=== PATIENT | female | born 1965 | race Caucasian/White ===

== ENCOUNTER 2016-08-24 19:37 | Inpatient (IN) | payer MEDICARE ==
[2016-08-24] MEDS ORDERED: SODIUM CHLORIDE 0.9% 1,000 ML IV ONE (20:09)
[2016-08-24] MEDS ORDERED: KETOROLAC 30 MG/ML 1 ML VIAL IVP STA (20:09)
[2016-08-24] MEDS ORDERED: diphenhydrAMINE 50 MG/ML 1 ML VIAL IVP STA (20:10)
[2016-08-24] MEDS ORDERED: METOCLOPRAMIDE 5 MG/ML 2 ML VIAL IVP STA (20:10)
--- NOTE | 2016-08-24 20:27 | ED ---
Headache HPI - General Chief Complaint: Headache Stated Complaint: Migraine/Vomiting Time Seen by Provider: 08/24/16 19:54 Source: RN notes reviewed Mode of arrival: wheelchair Limitations: no limitations - History of Present Illness Initial Comments: Patient is a 50-year-old female presents emergency room for evaluation of migraine headache. Patient states she has a history of chronic migraines. Patient also states she has a history of chronic neck pain, back pain and fibromyalgia. Patient states she ran out of her pain medication 5 days ago. Patient states she began having increasing headache the past 4 days. Patient states she's having a 10 out of 10 constant throbbing migraine. Patient states this is similar to her migraines but the pain is much worse. Patient states she 's been nauseous and has been vomiting. Patient denies any fevers or chills. Patient denies abdominal pain or chest pain. Patient states having increasing neck pain and low back pain. Patient states she just received an MRI today. Patient denies any new injuries or falls. Patient states she is feeling dizzy from the migraine headache. Patient states she's having ear ringing. Patient denies ear pain, throat pain, changes in vision. Patient states she has a history of viral meningitis few years ago and this feels similar. - Related Data Home Medications Medication Instructions Recorded Confirmed Amitriptyline HCl [Elavil] 75 mg PO HS 08/24/16 08/24/16 Atenolol [Tenormin] 25 mg PO BID 08/24/16 08/24/16 Divalproex [Depakote] 750 mg PO DAILY 08/24/16 08/24/16 Estradiol [Estrace] 2.5 mg PO DAILY 08/24/16 08/24/16 Omeprazole 40 mg PO DAILY 08/24/16 08/24/16 QUEtiapine [SEROquel] 100 mg PO DAILY 08/24/16 08/24/16 oxyCODONE HCL 30 mg PO QID PRN 08/24/16 08/24/16 traZODone HCL 50 mg PO HS 08/24/16 08/24/16 Allergies Allergy/AdvReac Type Severity Reaction Status Date / Time Sulfa (Sulfonamide Allergy Rash/Hives Verified 08/24/16 20:12 Antibiotics) Review of Systems ROS Statement: Those systems with pertinent positive or pertinent negative responses have been documented in the HPI. ROS Other: All systems not noted in ROS Statement are negative. Past Medical History Past Medical History: No Reported History, Fibromyalgia Additional Past Medical History / Comment(s): migraines, chronic back pain History of Any Multi-Drug Resistant Organisms: None Reported Past Surgical History: Cholecystectomy Additional Past Surgical History / Comment(s): neck surgery, cyst removal bilateral breast. Past Psychological History: Anxiety, Depression Smoking Status: Never smoker Past Alcohol Use History: None Reported Past Drug Use History: None Reported - Past Family History Mother Family Medical History: COPD Father Additional Family Medical History / Comment(s): smoker; etoh; from alcoholism General Exam - General Exam Comments Initial Comments: Laying in exam room, no acute distress. Limitations: no limitations General appearance: alert, in no apparent distress Head exam: Present: atraumatic, normocephalic, normal inspection Eye exam: Present: normal appearance, PERRL, EOMI Pupils: Present: normal accommodation ENT exam: Present: normal exam Neck exam: Present: normal inspection, tenderness (Palpating over the cervical vertebrae). Absent: full ROM (Limited range of motion secondary to pain) Respiratory exam: Present: normal lung sounds bilaterally. Absent: respiratory distress Cardiovascular Exam: Present: regular rate, normal rhythm, normal heart sounds Extremities exam: Present: normal inspection Back exam: Present: normal inspection Neurological exam: Present: alert, oriented X3, CN II-XII intact, normal gait Psychiatric exam: Present: normal affect, normal mood Skin exam: Present: warm, dry, intact, normal color. Absent: rash Course Vital Signs 08/24/16 08/24/16 08/24/16 19:42 22:02 23:00 Temperature 99.8 F H 100.5 F H 101.6 F H Pulse Rate 100 84 86 Respiratory 16 20 18 Rate Blood Pressure 137/89 168/90 156/75 O2 Sat by Pulse 98 98 99 Oximetry 08/25/16 00:15 Temperature 101.4 F H Pulse Rate 74 Respiratory 18 Rate Blood Pressure 178/86 O2 Sat by Pulse 98 Oximetry Medical Decision Making - Medical Decision Making Patient is a 50-year-old female presents to the emergency room for evaluation of migraine headache, nausea and vomiting. Patient's nausea is unable to be controlled. Patient still complaining of headache and neck pain. Patient noted to have a fever. WBC elevated. Patient refused spinal tap. Case discussed with Dr. Zazueta. Patient will be admitted for further evaluation. Plan discussed with patient and her family. - Lab Data Result diagrams: 08/24/16 20:53 08/24/16 20:53 Lab Results 08/24/16 08/24/16 08/24/16 Range/Units 00:50 20:53 20:53 WBC 14.4 H (3.8-10.6) k/uL RBC 5.49 H (3.80-5.40) m/uL Hgb 15.7 (11.4-16.0) gm/dL Hct 46.3 H (34.0-46.0) % MCV 84.2 (80.0-100.0) fL MCH 28.5 (25.0-35.0) pg MCHC 33.9 (31.0-37.0) g/dL RDW 12.3 (11.5-15.5) % Plt Count 336 (150-450) k/uL Neutrophils % 81 % Lymphocytes % 13 % Monocytes % 5 % Eosinophils % 0 % Basophils % 0 % Neutrophils # 11.7 H (1.3-7.7) k/uL Lymphocytes # 1.8 (1.0-4.8) k/uL Monocytes # 0.7 (0-1.0) k/uL Eosinophils # 0.0 (0-0.7) k/uL Basophils # 0.1 (0-0.2) k/uL Sodium (137-145) mmol/L Potassium (3.5-5.1) mmol/L Chloride (98-107) mmol/L Carbon Dioxide (22-30) mmol/L Anion Gap mmol/L BUN (7-17) mg/dL Creatinine (0.52-1.04) mg/dL Est GFR (MDRD) Af Amer (>60 ml/min/1.73 sqM) Est GFR (MDRD) Non-Af (>60 ml/min/1.73 sqM) Glucose (74-99) mg/dL Plasma Lactic Acid Jeff 3.9 H* (0.7-2.0) mmol/L Calcium (8.4-10.2) mg/dL Total Bilirubin (0.2-1.3) mg/dL AST (14-36) U/L ALT (9-52) U/L Alkaline Phosphatase (38-126) U/L Total Protein (6.3-8.2) g/dL Albumin (3.5-5.0) g/dL Influenza Type A RNA Not Detected (Not Detectd) Influenza Type B (PCR) Not Detected (Not Detectd) 08/24/16 Range/Units 20:53 WBC (3.8-10.6) k/uL RBC (3.80-5.40) m/uL Hgb (11.4-16.0) gm/dL Hct (34.0-46.0) % MCV (80.0-100.0) fL MCH (25.0-35.0) pg MCHC (31.0-37.0) g/dL RDW (11.5-15.5) % Plt Count (150-450) k/uL Neutrophils % % Lymphocytes % % Monocytes % % Eosinophils % % Basophils % % Neutrophils # (1.3-7.7) k/uL Lymphocytes # (1.0-4.8) k/uL Monocytes # (0-1.0) k/uL Eosinophils # (0-0.7) k/uL Basophils # (0-0.2) k/uL Sodium 144 (137-145) mmol/L Potassium 4.2 (3.5-5.1) mmol/L Chloride 102 (98-107) mmol/L Carbon Dioxide 27 (22-30) mmol/L Anion Gap 15 mmol/L BUN 9 (7-17) mg/dL Creatinine 0.86 (0.52-1.04) mg/dL Est GFR (MDRD) Af Amer >60 (>60 ml/min/1.73 sqM) Est GFR (MDRD) Non-Af >60 (>60 ml/min/1.73 sqM) Glucose 108 H (74-99) mg/dL Plasma Lactic Acid Jeff (0.7-2.0) mmol/L Calcium 10.4 H (8.4-10.2) mg/dL Total Bilirubin 0.8 (0.2-1.3) mg/dL AST 19 (14-36) U/L ALT 17 (9-52) U/L Alkaline Phosphatase 87 (38-126) U/L Total Protein 8.3 H (6.3-8.2) g/dL Albumin 4.9 (3.5-5.0) g/dL Influenza Type A RNA (Not Detectd) Influenza Type B (PCR) (Not Detectd) - Radiology Data Radiology results: report reviewed, image reviewed Disposition Clinical Impression: Fever, Headache, Intractable vomiting Disposition: ADMITTED IP TO THIS [facility] Condition: Stable Decision Date: 08/25/16
[2016-08-24 21:02] LABS: Basophils # (A) 0.1 k/uL (0-0.2); Basophils % (A) 0 %; CH 29.7; CHCM 35.4; Eosinophils % (A) 0 %; HCT 46.3 % (34.0-46.0); HDW 2.68; HGB 15.7 gm/dL (11.4-16.0); Luc # (Auto) 0.12; Luc % (Auto) 1; Lymphocytes # (A) 1.8 k/uL (1.0-4.8); Lymphocytes % (A) 13 %; MCH 28.5 pg (25.0-35.0); MCHC 33.9 g/dL (31.0-37.0); MCV 84.2 fL (80.0-100.0); Mean Platelet Volume 7.7; Monocytes # (A) 0.7 k/uL (0-1.0); Monocytes % (A) 5 %; Neutrophils # (A) 11.7 k/uL (1.3-7.7); Neutrophils % (A) 81 %; RBC 5.49 m/uL (3.80-5.40); RDW 12.3 % (11.5-15.5); WBC 14.4 k/uL (3.8-10.6)
[2016-08-24 21:11] LABS: ALT 17 U/L (9-52); AST 19 U/L (14-36); Alkaline Phosphatase 87 U/L (38-126); Anion Gap 15 mmol/L; Blood Urea Nitrogen 9 mg/dL (7-17); Calcium 10.4 mg/dL (8.4-10.2); Carbon Dioxide 27 mmol/L (22-30); Chloride 102 mmol/L (98-107); Glucose 108 mg/dL (74-99); Non-African American GFR(MDRD) >60 (>60 ml/min/1.73 sqM); Potassium 4.2 mmol/L (3.5-5.1); Sodium 144 mmol/L (137-145); Total Bilirubin 0.8 mg/dL (0.2-1.3); Total Protein 8.3 g/dL (6.3-8.2)
[2016-08-24] MEDS ORDERED: ACETAMINOPHEN IV (For NPO) 1,000 MG in EMPTY BAG 1 BAG IVPB STA (22:00)
[2016-08-24] MEDS ORDERED: PROMETHAZINE INJ 12.5 MG in SODIUM CHLORIDE 0.9% 50 ML IVPB STA ×2 (22:01→22:50)
--- NOTE | 2016-08-24 22:30 | CT ---
EXAMINATION TYPE: CT brain wo con DATE OF EXAM: 08/24/2016 10:23 PM COMPARISON: NONE HISTORY: Headache, dizziness, nausea and vomiting. CT DLP: 1063.70 mGycm Automated exposure control for dose reduction was used. FINDINGS: The ventricles and sulci appear normal. There is no mass effect nor midline shift. There is no sign o f intracranial hemorrhage. Calvarium appears intact. IMPRESSION: Normal unenhanced head CT scan.
[2016-08-24] MEDS ORDERED: NALOXONE 0.4 MG/ML 1 ML VIAL IV PRN (23:37)
--- NOTE | 2016-08-25 01:09 | XR ---
EXAM: XR Chest, 2 Views. CLINICAL HISTORY: Reason: cough TECHNIQUE: Frontal and lateral views of the chest. COMPARISON: No relevant prior studies available. FINDINGS: Lungs: Unremarkable. No consolidation. Pleural spaces: Unremarkable. No pneumothorax. Heart: Unremarkable. No cardiomegaly. Mediastinum: Unremarkable. Bones: Partially included is previous lower cervical fusion. There are degenerative changes seen within the spine and shoulders. IMPRESSION: No acute findings.
[2016-08-25] MEDS: SODIUM CHLORIDE 0.9% 1,000 ML IV SCH ×2 (01:41→12:37)
[2016-08-25] MEDS: KETOROLAC 30 MG/ML 1 ML VIAL IVP PRN ×4 (01:46→21:30)
[2016-08-25] MEDS: cefTRIAXone 2,000 MG in SODIUM CHLORIDE 0.9% 100 ML IVPB SCH ×2 (01:46→13:31)
[2016-08-25] MEDS: ONDANSETRON 4 MG/2 ML VIAL IVP PRN ×2 (01:46→10:56)
[2016-08-25] MEDS: LORazepam 2 MG/ML SYRINGE IV PRN ×2 (04:29→18:31)
[2016-08-25] MEDS ORDERED: SODIUM CHLORIDE 0.9% 1,000 ML IV ONE ×2 (06:42→08:00)
[2016-08-25 06:45] LABS: Glucose,Whole Blood 108 mg/dL (75-99)
[2016-08-25 10:11] VITALS: BMI 29.7
[2016-08-25 10:13] LABS: Appearance,Urine Clear (Clear); Bacteria,Urine Rare /hpf; Bilirubin,Urine Negative (Negative); Glucose,Urine (UA) Trace (Negative); Ketones,Urine 2+ (Negative); Leukocyte Esterase,Urine Trace (Negative); Mucus,Urine Few /hpf; Nitrite,Urine Negative (Negative); Particle Count 7453; Protein,Urine 1+ (Negative); RBC,Urine 16 /hpf (0-5); Specific Gravity,Urine 1.032 (1.001-1.035); Squamous Epithelial Cell,Urine 1 /hpf (0-4); UA Billing (MACRO vs. MICRO) MICRO; Urobilinogen,Urine <2.0 mg/dL (<2.0); WBC,Urine 14 /hpf (0-5)
[2016-08-25] MEDS ORDERED: PROMETHAZINE 25 MG TAB PO PRN (12:00)
[2016-08-25] MEDS ORDERED: QUEtiapine 100 MG TAB PO SCH (12:30)
[2016-08-25] MEDS: PANTOPRAZOLE 40 MG TABLET PO SCH (13:19)
[2016-08-25] MEDS: DOXEPIN 25 MG CAP PO SCH (13:20)
--- NOTE | 2016-08-25 14:38 | P.CNNES ---
History of Present Illness Consult date: 08/25/16 Requesting physician: Parveen Watts Reason for Consult: Intractable headache History of Present Illness: Patient is a pleasant 50-year-old female who is being evaluated by the neurology service on 08/25/2016 per the request of Dr. Watts for intractable headache. Patient states she has a long history of migraine headaches. Patient reports she had cervical fusion done in 2008 and has history of viral meningitis in 2011. Patient states these headaches have been worse since 2011. Patient denies having been seen by neurologist. She does report having had occipital nerve blocks done per anesthesia in the past without significant relief. Patient states she's been using Fioricet as an abortive therapy which has been making her nauseated. Patient also reports having history of neck and back pain and reports she had a recent MRI of both. These results are unavailable to me at this point. Patient denies any new injuries or falls. Patient was febrile on admission. Patient blood pressure has been elevated. Last blood pressure was 178/86. On admission, WBCs were 14.4, hemoglobin 15.7, and hematocrit 46.3. At the time of my evaluation, patient is resting comfortably in bed and appears to be in no acute distress. Review of Systems REVIEW OF SYSTEMS: Otherwise unremarkable and noncontributory. Past Medical History Past Medical History: No Reported History, Fibromyalgia Additional Past Medical History / Comment(s): migraines, chronic back pain History of Any Multi-Drug Resistant Organisms: None Reported Past Surgical History: Cholecystectomy Additional Past Surgical History / Comment(s): neck surgery, cyst removal bilateral breast. Past Anesthesia/Blood Transfusion Reactions: No Reported Reaction Past Psychological History: Anxiety, Depression Smoking Status: Never smoker Past Alcohol Use History: None Reported Past Drug Use History: None Reported - Past Family History Mother Family Medical History: COPD Father Additional Family Medical History / Comment(s): smoker; etoh; from alcoholism Medications and Allergies Home Medications Medication Instructions Recorded Confirmed Type Atenolol [Tenormin] 25 mg PO BID 08/24/16 08/24/16 History Omeprazole 40 mg PO DAILY 08/24/16 08/24/16 History QUEtiapine [SEROquel] 100 mg PO DAILY 08/24/16 08/24/16 History oxyCODONE HCL 30 mg PO QID PRN 08/24/16 08/24/16 History Butalb/APAP/Caff 50-325-40Mg 1 tab PO Q4H PRN MDD 4 08/25/16 08/25/16 History [Fioricet 50-325-40] Doxepin HCl [SINEquan] 100 mg PO DAILY 08/25/16 08/25/16 History Allergies Allergy/AdvReac Type Severity Reaction Status Date / Time Sulfa (Sulfonamide Allergy Rash/Hives Verified 08/24/16 20:12 Antibiotics) Physical Examination - Vital Signs Vital Signs: Vital Signs Temp Pulse Pulse Resp BP BP Pulse Ox 08/25/16 08:00 75 16 08/25/16 07:00 99.3 F 75 16 153/89 100 08/25/16 06:39 99.4 F 77 18 154/91 97 08/25/16 01:37 97.9 F 71 20 167/86 100 08/25/16 00:15 101.4 F H 74 18 178/86 98 Intake and Output 08/24/16 08/25/16 08/25/16 22:59 06:59 14:59 Intake Total 400 3500 Output Total 201 Balance 400 3299 Intake: Intake, IV Titration 2700 Amount Sodium Chloride 0.9% 1, 700 000 ml @ 100 mls/hr IV . Q10H MARIA R Rx#:[id number] Sodium Chloride 0.9% 1, 1000 000 ml @ 999 mls/hr IV . Q1H1M ONE Rx#:[id number] Sodium Chloride 0.9% 1, 1000 000 ml @ 999 mls/hr IV . Q1H1M ONE Rx#:[id number] Oral 400 800 Output: Urine 200 Stool 1 Other: Voiding Method Toilet # Voids 3 Weight 86.183 kg Patient Weight 08/26/16 06:59 Weight 86.183 kg PHYSICAL EXAM: GENERAL APPEARANCE: Patient is a well-developed, female who appears to be in no acute distress. HEENT: Normocephalic, atraumatic, no facial asymmetry is seen. Neck is supple with no masses felt. CARDIOVASCULAR: Regular rate and rhythm. ABDOMEN: Nontender, nondistended. EXTREMITIES: Show no edema or clubbing. NEUROLOGICAL EXAM: Patient is awake, alert, and oriented 3. Speech and language are normal. Strength is full in all 4 extremities. Sensory exam to light touch is normal in all 4 extremities. No facial asymmetry seen on cranial nerve testing. No tremors or seizure-like activity noted. Results - Laboratory Findings CBC and BMP: 08/24/16 20:53 08/24/16 20:53 Abnormal Lab Findings: Abnormal Labs 08/25/16 08/25/16 08/25/16 04:07 06:43 10:00 POC Glucose (mg/dL) 108 H Plasma Lactic Acid Jeff 4.1 H* Urine Protein 1+ H Urine Glucose (UA) Trace H Urine Ketones 2+ H Urine Blood Small H Ur Leukocyte Esterase Trace H Urine RBC 16 H Urine WBC 14 H Urine Bacteria Rare H Urine Mucus Few H Assessment and Plan Plan: Impression: 1. Status migrainosus 2. Intractable nausea vomiting 3. History of cervical surgery 4. Lumbago 5. Leukocytosis Recommendations: Patient does appear to be suffering from status migrainosis. Computed tomography scan of the brain was negative for any abnormality. No nuchal rigidity on exam. I will order magnesium sulfate, IV Solu-Medrol, and IV Reglan. I will also start her on preventative medication Calan SR 120 mg by mouth daily. She has tried and failed multiple treatment modalities. We can offer further treatment options possibly including Botox injections on an outpatient basis. Continue further medical management for her leukocytosis. I will continue to follow with you. Further recommendations to follow. Thank you for allowing me to participate in the care of your patient. Feel free to call me with any questions or concerns. I performed an examination of the patient and discussed the management with the [facility] TE[employer]. I have reviewed the [employer] TE[employer] notes and agree with the findings and plan of care.
[2016-08-25] MEDS: MAGNESIUM SULFATE-D5W PMX 1 GM in DEXTROSE/WATER 1 100ML.BAG IVPB SCH (15:14)
[2016-08-25] MEDS: VERAPAMIL SR 120 MG TABLET.ER PO SCH (15:18)
[2016-08-25] MEDS: METOCLOPRAMIDE 5 MG/ML 2 ML VIAL IVP SCH ×2 (15:23→23:07)
[2016-08-25] MEDS ORDERED: methylPREDNISolone SOD SUCCI 125 MG/2 ML VIAL IV SCH (16:00)
--- NOTE | 2016-08-25 16:57 | P.CONS ---
History of Present Illness - Reason for Consult Consult date: 08/25/16 - Chief Complaint Headache - History of Present Illness 50-year-old female who presents the emergency center feeling fairly poorly. She has a several-day history of worsening headache. She relates that she follows with her primary care physician for the treatment of her refractory headaches. She utilizes ice continuously to help her with her severe headaches. She has many underlying medical troubles but does not recall being treated with neurology. She's not been seen by a migraine specialist up till now. She does have a history of degenerative disease to her neck and has had the surgical repair of her neck in the past. She presented to the emergency center with complaints of worsening headache. She was she's been on her medicine for at least 5 days. With this she started to have refractory pain. And constantly presented emergency center. There she did have difficulties with the onset of a fever. She relates that she was having some diarrhea at home. She does live at home with her She relates that she is a very poor quality of life due to her many medical troubles. She relates that she has fibromyalgia and chronic pain. She relates to a history of 4 years ago of having viral meningitis. She apparently has never had a good outcome. It worsened her fibromyalgia and this made her head difficulty with concentration. Her overall quality of life is continue to decline over time. Upon presentation to the emergency center she does have evidence of an underlying infection. She complained of severe headache. There was concerns the possibility of meningitis again. She was offered a lumbar puncture and refused. She counseling was admitted and given intravenous antibiotic therapy and workup was started. At this time she is not remembering much about the ER stay. And fortunately this morning is feeling considerably better. Does not feel well. But with restarting of multiple medications she is starting to feel somewhat better. Her pain is deftly better controlled. She has well in the dark room and is utilizing ice packs to help her headache which is so common for her. Review of Systems She relates that she is miserable all the time. She has poor quality of life. She has one good day out of 4. An echo today she does her shopping and all of her work. In the past 3 days of misery. She relates that she has headaches every day and only has one day out of 4 that is worth anything. HEENT: He has chronic headaches but no acute visual change. Denies sinus or mouth discomforts. She weighs has neck pain related to her prior surgery but it is not distinctly stiff Denies significant oral cavity pain. Denies difficulty on swallowing. Lungs: Denies significant shortness of breath, cough, sputum production, or hemoptysis. Cardiovascular: Denies significant shortness of breath, chest pain, chest wall pain, orthopnea, dyspnea on exertion, syncope Gastrointestinal: Does not have significant ongoing gastrointestinal symptoms however yesterday she did not feel well and did have a bout of diarrhea and with her uncontrolled headache and some nausea and emesis. Better at this time. Musculoskeletal: She has chronic severe neck pain. She has generalized body aches and malaise related to her diagnosis of fibromyalgia Skin: Denies new rash or lesions. No new ulcers or wounds are related.. Neuro: As per the HPI chronic headaches but no new acute gross focal sensory motor deficits Psychiatric: Chronic anxiety and depression Endocrine: Chronic fatigue with weight gain Past Medical History Past Medical History: No Reported History, Fibromyalgia Additional Past Medical History / Comment(s): migraines, chronic back pain History of Any Multi-Drug Resistant Organisms: None Reported Past Surgical History: Cholecystectomy Additional Past Surgical History / Comment(s): neck surgery, cyst removal bilateral breast. Past Anesthesia/Blood Transfusion Reactions: No Reported Reaction Past Psychological History: Anxiety, Depression Additional Psychological History / Comment(s): lives with her . Medically disabled from the [facility], relates to her PTSD -like event. Tobacco smoker until 10 years ago. Denies recreational drug use or alcohol use. No experience. No international travel no animal exposures Smoking Status: Never smoker Past Alcohol Use History: None Reported Past Drug Use History: None Reported - Past Family History Mother Family Medical History: COPD Father Additional Family Medical History / Comment(s): smoker; etoh; from alcoholism Medications and Allergies Home Medications and Allergies Comment(s): Current Medications Acetaminophen/Butalbital/Caffeine (Fioricet 50-325-40) 1 each PO Q4H PRN PRN Reason: Headache Atenolol (Tenormin) 25 mg PO BID MARIA R Doxepin HCl (Sinequan) 100 mg PO DAILY MARIA R Last Admin: 08/25/16 13:20 Dose: 100 mg Sodium Chloride (Saline 0.9%) 1,000 mls @ 100 mls/hr IV .Q10H MARIA R Last Admin: 08/25/16 12:37 Dose: 100 mls/hr Ceftriaxone Sodium 2,000 mg/ (Sodium Chloride) 100 mls @ 100 mls/hr IVPB Q12H [facility] Last Admin: 08/25/16 13:31 Dose: 100 mls/hr Magnesium Sulfate/Dextrose 1 (gm/ IV Solution) 100 mls @ 100 mls/hr IVPB Q24H [facility] Stop: 08/26/16 15:59 Last Admin: 08/25/16 15:14 Dose: 100 mls/hr Methylprednisolone Sodium Succinate 250 mg/ Sodium Chloride 100 mls @ 100 mls/ hr IVPB Q8HR [facility] Stop: 08/27/16 23:59 Last Admin: 08/25/16 16:13 Dose: 100 mls/hr Ketorolac Tromethamine (Toradol) 30 mg IVP Q6HR PRN PRN Reason: Moderate Pain Stop: 08/29/16 23:38 Last Admin: 08/25/16 14:00 Dose: 30 mg Lorazepam (Ativan) 0.5 mg IV Q6HR PRN PRN Reason: Anxiety Last Admin: 08/25/16 04:29 Dose: 0.5 mg Metoclopramide HCl (Reglan) 10 mg IVP Q8H [facility] Stop: 08/27/16 23:59 Last Admin: 08/25/16 15:23 Dose: 10 mg Naloxone HCl (Narcan) 0.2 mg IV Q2M PRN PRN Reason: Opioid Reversal Ondansetron HCl (Zofran) 4 mg IVP Q8HR PRN PRN Reason: Nausea And Vomiting Last Admin: 08/25/16 10:56 Dose: 4 mg Oxycodone HCl (Oxyir) 30 mg PO QID PRN PRN Reason: Pain Pantoprazole Sodium (Protonix) 40 mg PO DAILY [facility] Last Admin: 08/25/16 13:19 Dose: 40 mg Promethazine HCl (Phenergan) 12.5 mg PO Q6HR PRN PRN Reason: Nausea And Vomiting Quetiapine Fumarate (Seroquel) 100 mg PO DAILY [facility] Last Admin: 08/25/16 13:19 Dose: 100 mg Verapamil HCl (Isoptin Sr) 120 mg PO DAILY [facility] Last Admin: 08/25/16 15:18 Dose: 120 mg Home Medications Medication Instructions Recorded Confirmed Type Atenolol [Tenormin] 25 mg PO BID 08/24/16 08/24/16 History Omeprazole 40 mg PO DAILY 08/24/16 08/24/16 History QUEtiapine [SEROquel] 100 mg PO DAILY 08/24/16 08/24/16 History oxyCODONE HCL 30 mg PO QID PRN 08/24/16 08/24/16 History Butalb/APAP/Caff 50-325-40Mg 1 tab PO Q4H PRN MDD 4 08/25/16 08/25/16 History [Fioricet 50-325-40] Doxepin HCl [SINEquan] 100 mg PO DAILY 08/25/16 08/25/16 History Allergies Allergy/AdvReac Type Severity Reaction Status Date / Time Sulfa (Sulfonamide Allergy Rash/Hives Verified 08/24/16 20:12 Antibiotics) Physical Exam Vitals: Vital Signs Temp Pulse Pulse Resp BP BP Pulse Ox 08/25/16 15:59 74 16 08/25/16 15:00 98.6 F 74 16 160/76 96 08/25/16 08:00 75 16 08/25/16 07:00 99.3 F 75 16 153/89 100 08/25/16 06:39 99.4 F 77 18 154/91 97 08/25/16 01:37 97.9 F 71 20 167/86 100 08/25/16 00:15 101.4 F H 74 18 178/86 98 Intake and Output 08/25/16 08/25/16 08/25/16 06:59 14:59 22:59 Intake Total 400 3500 Output Total 201 2 Balance 400 3299 -2 Intake: Intake, IV Titration 2700 Amount Sodium Chloride 0.9% 1, 700 000 ml @ 100 mls/hr IV . Q10H MARIA R Rx#:[id number] Sodium Chloride 0.9% 1, 1000 000 ml @ 999 mls/hr IV . Q1H1M ONE Rx#:[id number] Sodium Chloride 0.9% 1, 1000 000 ml @ 999 mls/hr IV . Q1H1M ONE Rx#:[id number] Oral 400 800 Output: Urine 200 Stool 1 2 Other: Voiding Method Toilet Toilet # Voids 3 1 Weight 86.183 kg 86.183 kg Patient Weight 08/26/16 06:59 Weight 86.183 kg 50-year-old woman who looks considerably older than her stated age. Although she complains of severe pain she is conversational but not agitated HEENT: Anicteric conjunctiva are pink and moist nasal mucosa grossly intact without significant lesions, there is no thrush. Dentition is slightly warm for age Neck: The neck is with mildly decreased range of motion but has had prior surgery, it is not stiff nor tender upon motion without significant lymphadenopathy or thyromegaly. Lungs: Good bilateral air entry without significant crackles few wheezes are heard. There is no significant bronchial sounds. There is no egophony or dullness. Heart: Regular rate and rhythm with an audible S1-S2, no S3 no S4. There is no significant murmur click or rub, PMI was nondisplaced. Abdomen: Positive bowel sounds soft and nontender without palpable masses or organomegaly. There was no guarding or rebound. Extremities: The upper extremities have excellent pulses they are symmetric, no significant petechiae or telangiectasia. No splinter hemorrhages were noted. The lower extremities are free from significant edema. The peripheral pulses were 2+ and symmetric. Neuro: Awake alert oriented to person place and time. There are no acute new gross focal sensory motor deficits. Psych; is noted the patient has significant anxiety. She is very distraught about how poorly she's felt over the years. She distraught that she is never improved from her history of meningitis. And yet has not had neurological evaluation over the years. Results CBC & Chem 7: 08/24/16 20:53 08/24/16 20:53 Labs: Abnormal Lab Results - Last 24 Hours (Table) 08/25/16 08/25/16 08/25/16 Range/Units 04:07 06:43 10:00 POC Glucose (mg/dL) 108 H (75-99) mg/dL Plasma Lactic Acid Jeff 4.1 H* (0.7-2.0) mmol/L Urine Protein 1+ H (Negative) Urine Glucose (UA) Trace H (Negative) Urine Ketones 2+ H (Negative) Urine Blood Small H (Negative) Ur Leukocyte Esterase Trace H (Negative) Urine RBC 16 H (0-5) /hpf Urine WBC 14 H (0-5) /hpf Urine Bacteria Rare H (None) /hpf Urine Mucus Few H (None) /hpf Laboratory Results WBC 14.4 k/uL (3.8-10.6) H 08/24/16 20:53 RBC 5.49 m/uL (3.80-5.40) H 08/24/16 20:53 Hgb 15.7 gm/dL (11.4-16.0) 08/24/16 20:53 Hct 46.3 % (34.0-46.0) H 08/24/16 20:53 MCV 84.2 fL (80.0-100.0) 08/24/16 20:53 MCH 28.5 pg (25.0-35.0) 08/24/16 20:53 MCHC 33.9 g/dL (31.0-37.0) 08/24/16 20:53 RDW 12.3 % (11.5-15.5) 08/24/16 20:53 Plt Count 336 k/uL (150-450) 08/24/16 20:53 Neutrophils % 81 % 08/24/16 20:53 Lymphocytes % 13 % 08/24/16 20:53 Monocytes % 5 % 08/24/16 20:53 Eosinophils % 0 % 08/24/16 20:53 Basophils % 0 % 08/24/16 20:53 Neutrophils # 11.7 k/uL (1.3-7.7) H 08/24/16 20:53 Lymphocytes # 1.8 k/uL (1.0-4.8) 08/24/16 20:53 Monocytes # 0.7 k/uL (0-1.0) 08/24/16 20:53 Eosinophils # 0.0 k/uL (0-0.7) 08/24/16 20:53 Basophils # 0.1 k/uL (0-0.2) 08/24/16 20:53 Sodium 144 mmol/L (137-145) 08/24/16 20:53 Potassium 4.2 mmol/L (3.5-5.1) 08/24/16 20:53 Chloride 102 mmol/L (98-107) 08/24/16 20:53 Carbon Dioxide 27 mmol/L (22-30) 08/24/16 20:53 Anion Gap 15 mmol/L 08/24/16 20:53 BUN 9 mg/dL (7-17) 08/24/16 20:53 Creatinine 0.86 mg/dL (0.52-1.04) 08/24/16 20:53 Est GFR (MDRD) Af Amer >60 (>60 ml/min/1.73 sqM) 08/24/16 20:53 Est GFR (MDRD) Non-Af >60 (>60 ml/min/1.73 sqM) 08/24/16 20:53 Glucose 108 mg/dL (74-99) H 08/24/16 20:53 POC Glucose (mg/dL) 108 mg/dL (75-99) H 08/25/16 06:43 POC Glu Learning And Development Coordinator Samantha Ramirez 08/25/16 06:43 Plasma Lactic Acid Jeff 1.7 mmol/L (0.7-2.0) 08/25/16 08:18 Calcium 10.4 mg/dL (8.4-10.2) H 08/24/16 20:53 Total Bilirubin 0.8 mg/dL (0.2-1.3) 08/24/16 20:53 AST 19 U/L (14-36) 08/24/16 20:53 ALT 17 U/L (9-52) 08/24/16 20:53 Alkaline Phosphatase 87 U/L (38-126) 08/24/16 20:53 Total Protein 8.3 g/dL (6.3-8.2) H 08/24/16 20:53 Albumin 4.9 g/dL (3.5-5.0) 08/24/16 20:53 Urine Color Yellow 08/25/16 10:00 Urine Appearance Clear (Clear) 08/25/16 10:00 Urine pH 6.0 (5.0-8.0) 08/25/16 10:00 Ur Specific [place] 1.032 (1.001-1.035) 08/25/16 10:00 Urine Protein 1+ (Negative) H 08/25/16 10:00 Urine Glucose (UA) Trace (Negative) H 08/25/16 10:00 Urine Ketones 2+ (Negative) H 08/25/16 10:00 Urine Blood Small (Negative) H 08/25/16 10:00 Urine Nitrate Negative (Negative) 08/25/16 10:00 Urine Bilirubin Negative (Negative) 08/25/16 10:00 Urine Urobilinogen <2.0 mg/dL (<2.0) 08/25/16 10:00 Ur Leukocyte Esterase Trace (Negative) H 08/25/16 10:00 Urine RBC 16 /hpf (0-5) H 08/25/16 10:00 Urine WBC 14 /hpf (0-5) H 08/25/16 10:00 Ur Squamous Epith Cells 1 /hpf (0-4) 08/25/16 10:00 Urine Bacteria Rare /hpf (None) H 08/25/16 10:00 Urine Mucus Few /hpf (None) H 08/25/16 10:00 Influenza Type A RNA Not Detected (Not Detectd) 08/24/16 20:53 Influenza Type B (PCR) Not Detected (Not Detectd) 08/24/16 20:53 Assessment and Plan (1) Fever Narrative/Plan: 50-year-old woman with history of significant underlying medical illnesses that include degenerative disc disease of her neck status post surgery. She appears to have a chronic pain syndrome with chronic headaches since that time. She's not been seen by neurology and hopefully they will be able to intercede and improve her significant underlying pain syndrome. She be willing to see them in the outpatient setting. She had fever at the time of admission as well as leukocytosis. She was having some gastrointestinal symptoms that have definitely improved except for ongoing nausea and emesis. However this may be related to her medication withdrawal and her significant headache which routinely causes her to have nausea and emesis. It appears that she is improved today. Cultures are in process. I strongly doubt that she has meningitis. Is responding well to current antibiotic therapy. Also help direct her transition to oral antibiotic therapy in the next short period of time. Neurology with pain management hopefully we will to improve her quality of life after discharge. I discussed that I have no distinct treatments for fibromyalgia. And any postinfectious changes from her meningitis are also not distinctly treatable. Status: Acute (2) Migraine Status: Acute (3) Leukocytosis Status: Acute
[2016-08-25] MEDS: DEXTROSE 5%-0.45% NACL 1,000 ML IV SCH (18:24)
[2016-08-25] MEDS: BACLOFEN 10 MG TAB PO SCH ×2 (18:30→21:27)
--- NOTE | 2016-08-25 18:39 | HP ---
DATE OF ADMISSION: 08/24/2016 PRESENTING COMPLAINT: Headache. HISTORY OF PRESENTING COMPLAINT: This is a 50-year-old patient who follows with Dr. Matthias Hicks, chronic stable medical conditions include fibromyalgia, anxiety, depression, sometimes migraines, GERD. The patient had cervical spine surgery done at [facility] by Dr. Eagle. Patient for four days has been having headaches and she said normally she gets these headaches, gets into the hospital, she is given something IV and gets better. She is also having fevers, but denies any and there is no photophobia. There is no neck stiffness, though she does have pain in the neck and back of the head. Patient did throw up some. Denies any obvious urinary symptoms. No cough. No shortness of breath. Patient was put on ceftriaxone. Patient's is at bedside. REVIEW OF SYSTEMS: CONSTITUTIONAL: Tired. HEENT: As above. RESPIRATORY: None. CARDIOVASCULAR: None. GASTROINTESTINAL: Nauseated. GENITOURINARY: None. MUSCULOSKELETAL: Chronic neck pains and headaches. NEUROLOGICAL No neck stiffness per se, no photophobia. No focal weakness. PSYCHIATRY: Anxiety. PAST MEDICAL HISTORY: Fibromyalgia, chronic pain, anxiety, depression, migraines, GERD. PAST SURGICAL HISTORY: Neck surgery, cyst removed from both the breasts, cholecystectomy. SOCIAL HISTORY: . Medically disabled related to PTSD. The patient smoked until a few years ago. Denies using recreational drugs. No alcohol. FAMILY HISTORY: COPD, alcoholism. HOME MEDICATIONS: 1. Doxepin 100 mg p.o. daily. 2. Fioricet 1 tablet q.4 p.r.n. 3. Oxycodone 30 mg p.o. q.i.d. p.r.n. 4. Seroquel 100 mg p.o. daily. 5. Omeprazole 40 mg p.o. daily. 6. Tenormin 25 mg p.o. b.i.d. ALLERGIES TO SULFUR. On examination, T-max 101.6, pulse 86, respiration 18, blood pressure 156/75, pulse ox 99% on room air. GENERAL APPEARANCE: Sitting up, tired appearing. EYES: Pupils equal. Conjunctivae normal. No photophobia. NECK: JVD not raised. Mass not palpable. RESPIRATORY: Effort normal. LUNGS: Fair air entry. CARDIOVASCULAR: First and second sounds normal. No edema. ABDOMEN: Soft, nontender. Liver and spleen not palpable. LYMPHATIC: No lymph nodes palpable in neck or axillae. PSYCHIATRY: Alert and oriented x3. Mood and affect slightly anxious appearing. NEUROLOGICAL: Pupils equal. No facial asymmetry. There is no neck stiffness. Able to touch her chin to the chest. INVESTIGATIONS: White count 14.4, hemoglobin 15.7, potassium 4.2. Bilirubin is 0.8. UA showing trace leukocyte esterase, 14 WBC. ASSESSMENT: 1. This is a patient who has a history of chronic neck pain looks to have flare-up of the same, seems the same. Patient does not look like to be meningitis, but to make sure Dr. Benitez from ID has been consulted. 2. Possible urinary tract infection. At the same time fever could be explained by viral symptomatology. 3. Chronic fibromyalgia. 4. Chronic anxiety, depression, not otherwise specified. 5. Gastroesophageal reflux disease. 6. Hypertension. PLAN: Patient's home medications are resumed. Neurology and ID were consulted. So will be Psychiatry. Patient is left on ceftriaxone. She was given IV fluids. Care was discussed with the patient and at the bedside. Will increase IV fluids and change to D5.45.
[2016-08-25] MEDS: ATENOLOL 25 MG TAB PO SCH (21:30)
[2016-08-26] MEDS: LORazepam 2 MG/ML SYRINGE IV PRN (00:16)
[2016-08-26] MEDS: cefTRIAXone 2,000 MG in SODIUM CHLORIDE 0.9% 100 ML IVPB SCH ×2 (00:16→12:22)
[2016-08-26] MEDS: KETOROLAC 30 MG/ML 1 ML VIAL IVP PRN ×3 (04:01→16:17)
[2016-08-26] MEDS: DEXTROSE 5%-0.45% NACL 1,000 ML IV SCH ×3 (04:06→19:30)
[2016-08-26] MEDS: BUTALB/APAP/CAFF 50-325-40MG TAB PO PRN ×4 (04:06→17:59)
[2016-08-26] MEDS: METOCLOPRAMIDE 5 MG/ML 2 ML VIAL IVP SCH ×3 (07:44→23:13)
[2016-08-26] MEDS: VERAPAMIL SR 120 MG TABLET.ER PO SCH (07:45)
[2016-08-26] MEDS: ATENOLOL 25 MG TAB PO SCH (07:45)
[2016-08-26] MEDS: BACLOFEN 10 MG TAB PO SCH ×4 (07:45→21:44)
[2016-08-26] MEDS: DOXEPIN 25 MG CAP PO SCH (07:45)
[2016-08-26] MEDS: PANTOPRAZOLE 40 MG TABLET PO SCH (07:45)
[2016-08-26 08:00] VITALS: RESP 16
--- NOTE | 2016-08-26 12:35 | P.PN ---
Subjective Principal diagnosis: Patient is a pleasant 50-year-old female who is being followed by the neurology service for status migrainosus. Patient states he has a long history of migraine headaches. Patient does have history of cervical fusion done [place] [address] Eagle and history of viral meningitis in 2011. Patient states she' s been having uncontrolled headaches since that time. Patient denies ever having been seen by a neurologist. Patient was started on IV Solu-Medrol, IV Reglan, and magnesium sulfate which she states has been helping her headaches. Patient was also started on preventative headache medication Calan SR 120 mg by mouth daily. At the time of my evaluation, patient's resting comfortably in bed and appears to be in no acute distress. Objective - Vital Signs Vital signs: Vital Signs Temp 98.4 F 08/26/16 07:00 Pulse 71 08/26/16 08:00 Resp 16 08/26/16 08:00 BP 167/77 08/26/16 07:00 Pulse Ox 95 08/26/16 07:00 Intake & Output 08/25/16 08/26/16 08/26/16 18:59 06:59 18:59 Intake Total 3500 1900 Output Total 203 201 Balance 3297 1900 -201 Weight 86.183 kg 86.183 kg Intake: IV 1300 Dextrose 5%-0.45% NaCl 1, 1100 000 ml @ 125 mls/hr IV . Q8H MARIA R Rx#:[id number] cefTRIAXone 2,000 mg In 100 Sodium Chloride 0.9% 100 ml @ 100 mls/hr IVPB Q12H MARIA R Rx#:[id number] methylPREDNISolone SOD 100 SUCC 250 mg In Sodium Chloride 0.9% 100 ml @ 100 mls/hr IVPB Q8HR MARIA R Rx#:[id number] Intake, IV Titration 2700 Amount Sodium Chloride 0.9% 1, 700 000 ml @ 100 mls/hr IV . Q10H MARIA R Rx#:[id number] Sodium Chloride 0.9% 1, 1000 000 ml @ 999 mls/hr IV . Q1H1M ONE Rx#:[id number] Sodium Chloride 0.9% 1, 1000 000 ml @ 999 mls/hr IV . Q1H1M ONE Rx#:[id number] Oral 800 600 Output: Urine 200 200 Stool 3 1 Other: Voiding Method Toilet Toilet Toilet # Voids 1 1 1 - Exam PHYSICAL EXAM: GENERAL APPEARANCE: Patient is a well-developed, female who appears to be in no acute distress. HEENT: Normocephalic, atraumatic, no facial asymmetry is seen. Neck is supple with no masses felt. CARDIOVASCULAR: Regular rate and rhythm. ABDOMEN: Nontender, nondistended. EXTREMITIES: Show no edema or clubbing. NEUROLOGICAL EXAM: Patient is awake, alert, and oriented 3. Speech and language are normal. Strength is full in all 4 extremities. Sensory exam to light touch is normal in all 4 extremities. No facial asymmetry is seen on cranial nerve testing. No tremors or seizure-like activity is noted. - Labs CBC & Chem 7: 08/24/16 20:53 08/24/16 20:53 Assessment and Plan Plan: Impression: 1. Status migrainosis 2. Intractable nausea vomiting 3. History of cervical surgery 4. Lumbago 5. Anxiety Recommendations: Patient does appear to be suffering from status migrainosis. Computed tomography scan of the brain was negative for any abnormality. No nuchal rigidity on exam. Continue magnesium sulfate, IV Solu-Medrol, and IV Reglan. Continue preventative medication Calan SR 120 mg by mouth daily. She has tried and failed multiple treatment modalities. We can offer further treatment options possibly including Botox injections on an outpatient basis. Patient with chronic anxiety and is awaiting psychiatric consultation. I will continue to follow with you. Further recommendations to follow. I performed an examination of the patient and discussed the management with the PROTOTYPE FABRICATOR. I have reviewed the PROTOTYPE FABRICATOR notes and agree with the findings and plan of care.
--- NOTE | 2016-08-26 13:39 | P.PN ---
Subjective Principal diagnosis: Headache 50-year-old female who presents the emergency center feeling fairly poorly. She has a several-day history of worsening headache. She relates that she follows with her primary care physician for the treatment of her refractory headaches. She utilizes ice continuously to help her with her severe headaches. She has many underlying medical troubles but does not recall being treated with neurology. She's not been seen by a migraine specialist up till now. She does have a history of degenerative disease to her neck and has had the surgical repair of her neck in the past. She presented to the emergency center with complaints of worsening headache. She was she's been on her medicine for at least 5 days. With this she started to have refractory pain. And constantly presented emergency center. There she did have difficulties with the onset of a fever. She relates that she was having some diarrhea at home. She does live at home with her She relates that she is a very poor quality of life due to her many medical troubles. She relates that she has fibromyalgia and chronic pain. She relates to a history of 4 years ago of having viral meningitis. She apparently has never had a good outcome. It worsened her fibromyalgia and this made her head difficulty with concentration. Her overall quality of life is continue to decline over time. Upon presentation to the emergency center she does have evidence of an underlying infection. She complained of severe headache. There was concerns the possibility of meningitis again. She was offered a lumbar puncture and refused. She counseling was admitted and given intravenous antibiotic therapy and workup was started. At this time she is not remembering much about the ER stay. And fortunately this morning is feeling considerably better. Does not feel well. But with restarting of multiple medications she is starting to feel somewhat better. Her pain is deftly better controlled. She has well in the dark room and is utilizing ice packs to help her headache which is so common for her. May be slightly better today. Has been able to eat at least a bit of a clear liquid diet. No emesis in the last multiple hours. With the current interventions are being controlled as seem to be improved based on how she feels at home. Objective - Vital Signs Vital signs: Vital Signs Temp 98.4 F 08/26/16 07:00 Pulse 71 08/26/16 08:00 Resp 16 08/26/16 08:00 BP 167/77 08/26/16 07:00 Pulse Ox 95 08/26/16 07:00 Intake & Output 08/25/16 08/26/16 08/26/16 18:59 06:59 18:59 Intake Total 3500 1900 2050 Output Total 203 201 Balance 3297 1900 1849 Weight 86.183 kg 86.183 kg Intake: IV 1300 1250 Dextrose 5%-0.45% NaCl 1, 1100 900 000 ml @ 125 mls/hr IV . Q8H MARIA R Rx#:[id number] cefTRIAXone 2,000 mg In 100 100 Sodium Chloride 0.9% 100 ml @ 100 mls/hr IVPB Q12H MARIA R Rx#:[id number] methylPREDNISolone SOD 100 250 SUCC 250 mg In Sodium Chloride 0.9% 100 ml @ 100 mls/hr IVPB Q8HR MARIA R Rx#:[id number] Intake, IV Titration 2700 Amount Sodium Chloride 0.9% 1, 700 000 ml @ 100 mls/hr IV . Q10H MARIA R Rx#:[id number] Sodium Chloride 0.9% 1, 1000 000 ml @ 999 mls/hr IV . Q1H1M ONE Rx#:[id number] Sodium Chloride 0.9% 1, 1000 000 ml @ 999 mls/hr IV . Q1H1M ONE Rx#:[id number] Oral 800 600 800 Output: Urine 200 200 Stool 3 1 Other: Voiding Method Toilet Toilet Toilet # Voids 1 1 4 # Bowel Movements 1 - Exam 50-year-old woman who looks considerably older than her stated age. Although she complains of severe pain she is conversational but not agitated HEENT: Anicteric conjunctiva are pink and moist nasal mucosa grossly intact without significant lesions, there is no thrush. Dentition is slightly warm for age Neck: The neck is with mildly decreased range of motion but has had prior surgery, it is not stiff nor tender upon motion without significant lymphadenopathy or thyromegaly. Lungs: Good bilateral air entry without significant crackles few wheezes are heard. There is no significant bronchial sounds. There is no egophony or dullness. Heart: Regular rate and rhythm with an audible S1-S2, no S3 no S4. There is no significant murmur click or rub, PMI was nondisplaced. Abdomen: Positive bowel sounds soft and nontender without palpable masses or organomegaly. There was no guarding or rebound. Extremities: The upper extremities have excellent pulses they are symmetric, no significant petechiae or telangiectasia. No splinter hemorrhages were noted. The lower extremities are free from significant edema. The peripheral pulses were 2+ and symmetric. Neuro: Awake alert oriented to person place and time. There are no acute new gross focal sensory motor deficits. Psych; is noted the patient has significant anxiety. She is very distraught about how poorly she's felt over the years. She distraught that she is never improved from her history of meningitis. And yet has not had neurological evaluation over the years. - Labs CBC & Chem 7: 08/24/16 20:53 08/24/16 20:53 Labs: Laboratory Results WBC 14.4 k/uL (3.8-10.6) H 08/24/16 20:53 RBC 5.49 m/uL (3.80-5.40) H 08/24/16 20:53 Hgb 15.7 gm/dL (11.4-16.0) 08/24/16 20:53 Hct 46.3 % (34.0-46.0) H 08/24/16 20:53 MCV 84.2 fL (80.0-100.0) 08/24/16 20:53 MCH 28.5 pg (25.0-35.0) 08/24/16 20:53 MCHC 33.9 g/dL (31.0-37.0) 08/24/16 20:53 RDW 12.3 % (11.5-15.5) 08/24/16 20:53 Plt Count 336 k/uL (150-450) 08/24/16 20:53 Neutrophils % 81 % 08/24/16 20:53 Lymphocytes % 13 % 08/24/16 20:53 Monocytes % 5 % 08/24/16 20:53 Eosinophils % 0 % 08/24/16 20:53 Basophils % 0 % 08/24/16 20:53 Neutrophils # 11.7 k/uL (1.3-7.7) H 08/24/16 20:53 Lymphocytes # 1.8 k/uL (1.0-4.8) 08/24/16 20:53 Monocytes # 0.7 k/uL (0-1.0) 08/24/16 20:53 Eosinophils # 0.0 k/uL (0-0.7) 08/24/16 20:53 Basophils # 0.1 k/uL (0-0.2) 08/24/16 20:53 Sodium 144 mmol/L (137-145) 08/24/16 20:53 Potassium 4.2 mmol/L (3.5-5.1) 08/24/16 20:53 Chloride 102 mmol/L (98-107) 08/24/16 20:53 Carbon Dioxide 27 mmol/L (22-30) 08/24/16 20:53 Anion Gap 15 mmol/L 08/24/16 20:53 BUN 9 mg/dL (7-17) 08/24/16 20:53 Creatinine 0.86 mg/dL (0.52-1.04) 08/24/16 20:53 Est GFR (MDRD) Af Amer >60 (>60 ml/min/1.73 sqM) 08/24/16 20:53 Est GFR (MDRD) Non-Af >60 (>60 ml/min/1.73 sqM) 08/24/16 20:53 Glucose 108 mg/dL (74-99) H 08/24/16 20:53 POC Glucose (mg/dL) 108 mg/dL (75-99) H 08/25/16 06:43 POC Glu Cytopathology Technologist Samantha Ramirez 08/25/16 06:43 Plasma Lactic Acid Jeff 1.7 mmol/L (0.7-2.0) 08/25/16 08:18 Calcium 10.4 mg/dL (8.4-10.2) H 08/24/16 20:53 Total Bilirubin 0.8 mg/dL (0.2-1.3) 08/24/16 20:53 AST 19 U/L (14-36) 08/24/16 20:53 ALT 17 U/L (9-52) 08/24/16 20:53 Alkaline Phosphatase 87 U/L (38-126) 08/24/16 20:53 Total Protein 8.3 g/dL (6.3-8.2) H 08/24/16 20:53 Albumin 4.9 g/dL (3.5-5.0) 08/24/16 20:53 Urine Color Yellow 08/25/16 10:00 Urine Appearance Clear (Clear) 08/25/16 10:00 Urine pH 6.0 (5.0-8.0) 08/25/16 10:00 Ur Specific [place]ondo 1.032 (1.001-1.035) 08/25/16 10:00 Urine Protein 1+ (Negative) H 08/25/16 10:00 Urine Glucose (UA) Trace (Negative) H 08/25/16 10:00 Urine Ketones 2+ (Negative) H 08/25/16 10:00 Urine Blood Small (Negative) H 08/25/16 10:00 Urine Nitrate Negative (Negative) 08/25/16 10:00 Urine Bilirubin Negative (Negative) 08/25/16 10:00 Urine Urobilinogen <2.0 mg/dL (<2.0) 08/25/16 10:00 Ur Leukocyte Esterase Trace (Negative) H 08/25/16 10:00 Urine RBC 16 /hpf (0-5) H 08/25/16 10:00 Urine WBC 14 /hpf (0-5) H 08/25/16 10:00 Ur Squamous Epith Cells 1 /hpf (0-4) 08/25/16 10:00 Urine Bacteria Rare /hpf (None) H 08/25/16 10:00 Urine Mucus Few /hpf (None) H 08/25/16 10:00 Influenza Type A RNA Not Detected (Not Detectd) 08/24/16 20:53 Influenza Type B (PCR) Not Detected (Not Detectd) 08/24/16 20:53 Microbiology 08/24/16 00:50 Blood Blood Culture - Preliminary No Growth after 24 hours Assessment and Plan (1) Fever Narrative/Plan: 50-year-old woman with history of significant underlying medical illnesses that include degenerative disc disease of her neck status post surgery. She appears to have a chronic pain syndrome with chronic headaches since that time. She's not been seen by neurology and hopefully they will be able to intercede and improve her significant underlying pain syndrome. She be willing to see them in the outpatient setting. She had fever at the time of admission as well as leukocytosis. She was having some gastrointestinal symptoms that have definitely improved except for ongoing nausea and emesis. However this may be related to her medication withdrawal and her significant headache which routinely causes her to have nausea and emesis. It appears that she is improved today. Cultures are in process. I strongly doubt that she has meningitis. Is responding well to current antibiotic therapy. Also help direct her transition to oral antibiotic therapy in the next short period of time. Neurology with pain management hopefully we will to improve her quality of life after discharge. I discussed that I have no distinct treatments for fibromyalgia. And any postinfectious changes from her meningitis are also not distinctly treatable. If cultures remain negative tomorrow with the 48 hour christo we then can discontinue the antibiotic therapy. Status: Acute (2) Migraine Status: Acute (3) Leukocytosis Status: Acute
[2016-08-26] MEDS: MAGNESIUM SULFATE-D5W PMX 1 GM in DEXTROSE/WATER 1 100ML.BAG IVPB SCH (14:15)
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
[2016-08-26] MEDS ORDERED: DOXEPIN 25 MG CAP PO SCH (21:00)
[2016-08-26] MEDS: ATENOLOL 50 MG TAB PO SCH (21:43)
[2016-08-26] MEDS: clonazePAM 0.5 MG TAB PO SCH (21:43)
[2016-08-26] MEDS: ENOXAPARIN 40 MG/0.4 ML SYRINGE SQ SCH (22:26)
[2016-08-27] MEDS: cefTRIAXone 2,000 MG in SODIUM CHLORIDE 0.9% 100 ML IVPB SCH ×2 (01:12→11:54)
[2016-08-27] MEDS: BUTALB/APAP/CAFF 50-325-40MG TAB PO PRN ×2 (06:30→11:54)
[2016-08-27] MEDS: PANTOPRAZOLE 40 MG TABLET PO SCH (07:42)
[2016-08-27] MEDS: VERAPAMIL SR 120 MG TABLET.ER PO SCH (07:42)
[2016-08-27] MEDS: clonazePAM 0.5 MG TAB PO SCH (07:42)
[2016-08-27] MEDS: ENOXAPARIN 40 MG/0.4 ML SYRINGE SQ SCH (07:42)
[2016-08-27] MEDS: METOCLOPRAMIDE 5 MG/ML 2 ML VIAL IVP SCH ×2 (07:42→14:27)
[2016-08-27] MEDS: BACLOFEN 10 MG TAB PO SCH ×2 (07:43→11:54)
[2016-08-27] MEDS: ATENOLOL 50 MG TAB PO SCH (07:43)
--- NOTE | 2016-08-27 08:08 | PN ---
DATE OF SERVICE: 08/26/2016 PRESENTING COMPLAINT: Headaches. INTERVAL HISTORY: This patient admitted with fever, headache. Seen by psychiatry ( ) major depression medications. Neurologic made a diagnosis of status migrainous, meningitis felt to be unlikely. Patient far more comfortable, tolerating a diet, tolerating a liquid diet as she likes. Review of systems done for constitutional, cardiovascular, GI, pulmonary; relevant findings as above. Some headache is still present. Looks far more comfortable. Current medications are reviewed that include IV ceftriaxone, IV Solu-Medrol. On examination, temperature 99.7, pulse 76, respiration 16, blood pressure 130/79, pulse ox 96% on room air. GENERAL APPEARANCE: Lying in bed, comfortable. EYES: Pupils equal. Conjunctivae normal. NECK: JVD not raised. Mass not palpable. RESPIRATORY: Effort normal. Lungs are clear. CARDIOVASCULAR: First and second sounds normal. No edema. ABDOMEN: Soft, nontender. Liver and spleen not palpable. PSYCHIATRY: Anxious-appearing, alert and oriented x3. INVESTIGATIONS: No blood work from today. ASSESSMENT: 1. Status migrainous. 2. Chronic neck pain, probably from osteoarthritis. 3. Urinary tract infection. 4. Chronic fibromyalgia. 5. Gastroesophageal reflux disease. 6. Essential hypertension, uncontrolled. 7. Major depression recurrent. 8. Anxiety disorder. PLAN: Continue current medication and treatment plan. We will switch the patient to p.r.n. Reglan. Double the dose of Tenormin.
[2016-08-27 16:44] VITALS: BP 186/91; PULSE 70; TEMP 98.7
--- NOTE | 2016-08-27 19:02 | P.PN ---
Subjective Principal diagnosis: Headache 50-year-old female who presents the emergency center feeling fairly poorly. She has a several-day history of worsening headache. She relates that she follows with her primary care physician for the treatment of her refractory headaches. She utilizes ice continuously to help her with her severe headaches. She has many underlying medical troubles but does not recall being treated with neurology. She's not been seen by a migraine specialist up till now. She does have a history of degenerative disease to her neck and has had the surgical repair of her neck in the past. She presented to the emergency center with complaints of worsening headache. She was she's been on her medicine for at least 5 days. With this she started to have refractory pain. And constantly presented emergency center. There she did have difficulties with the onset of a fever. She relates that she was having some diarrhea at home. She does live at home with her She relates that she is a very poor quality of life due to her many medical troubles. She relates that she has fibromyalgia and chronic pain. She relates to a history of 4 years ago of having viral meningitis. She apparently has never had a good outcome. It worsened her fibromyalgia and this made her head difficulty with concentration. Her overall quality of life is continue to decline over time. Upon presentation to the emergency center she does have evidence of an underlying infection. She complained of severe headache. There was concerns the possibility of meningitis again. She was offered a lumbar puncture and refused. She counseling was admitted and given intravenous antibiotic therapy and workup was started. At this time she is not remembering much about the ER stay. And fortunately this morning is feeling considerably better. Does not feel well. But with restarting of multiple medications she is starting to feel somewhat better. Her pain is deftly better controlled. She has well in the dark room and is utilizing ice packs to help her headache which is so common for her. Patient considerably better today. Sitting upright. 8 some lunch. Nausea is resolved. Headache is to follow improved. Looks forward to outpatient treatment. Objective - Vital Signs Vital signs: Vital Signs Temp 98.7 F 08/27/16 15:00 Pulse 70 08/27/16 15:00 Resp 16 08/27/16 15:00 BP 186/91 08/27/16 15:00 Pulse Ox 96 08/27/16 15:00 Intake & Output 08/27/16 08/27/16 08/28/16 06:59 18:59 06:59 Intake Total 700 200 Balance 700 200 Intake: IV 700 200 Dextrose 5%-0.45% NaCl 1, 500 000 ml @ 125 mls/hr IV . Q8H MARIA R Rx#:[id number] cefTRIAXone 2,000 mg In 100 100 Sodium Chloride 0.9% 100 ml @ 100 mls/hr IVPB Q12H MARIA R Rx#:[id number] methylPREDNISolone SOD 100 100 SUCC 250 mg In Sodium Chloride 0.9% 100 ml @ 100 mls/hr IVPB Q8HR MARIA R Rx#:[id number] Other: Voiding Method Toilet Toilet # Voids 3 - Exam 50-year-old woman who looks considerably older than her stated age. Much improved today. Sitting upright and smiles. HEENT: Anicteric conjunctiva are pink and moist nasal mucosa grossly intact without significant lesions, there is no thrush. Dentition is slightly warm for age Neck: The neck is with mildly decreased range of motion but has had prior surgery, it is not stiff nor tender upon motion without significant lymphadenopathy or thyromegaly. Lungs: Good bilateral air entry without significant crackles few wheezes are heard. There is no significant bronchial sounds. There is no egophony or dullness. Heart: Regular rate and rhythm with an audible S1-S2, no S3 no S4. There is no significant murmur click or rub, PMI was nondisplaced. Abdomen: Positive bowel sounds soft and nontender without palpable masses or organomegaly. There was no guarding or rebound. Extremities: The upper extremities have excellent pulses they are symmetric, no significant petechiae or telangiectasia. No splinter hemorrhages were noted. The lower extremities are free from significant edema. The peripheral pulses were 2+ and symmetric. Neuro: Awake alert oriented to person place and time. There are no acute new gross focal sensory motor deficits. Psych; is noted the patient has significant anxiety. She is very distraught about how poorly she's felt over the years. She distraught that she is never improved from her history of meningitis. And yet has not had neurological evaluation over the years. - Labs CBC & Chem 7: 08/24/16 20:53 08/24/16 20:53 Labs: Laboratory Results WBC 14.4 k/uL (3.8-10.6) H 08/24/16 20:53 RBC 5.49 m/uL (3.80-5.40) H 08/24/16 20:53 Hgb 15.7 gm/dL (11.4-16.0) 08/24/16 20:53 Hct 46.3 % (34.0-46.0) H 08/24/16 20:53 MCV 84.2 fL (80.0-100.0) 08/24/16 20:53 MCH 28.5 pg (25.0-35.0) 08/24/16 20:53 MCHC 33.9 g/dL (31.0-37.0) 08/24/16 20:53 RDW 12.3 % (11.5-15.5) 08/24/16 20:53 Plt Count 336 k/uL (150-450) 08/24/16 20:53 Neutrophils % 81 % 08/24/16 20:53 Lymphocytes % 13 % 08/24/16 20:53 Monocytes % 5 % 08/24/16 20:53 Eosinophils % 0 % 08/24/16 20:53 Basophils % 0 % 08/24/16 20:53 Neutrophils # 11.7 k/uL (1.3-7.7) H 08/24/16 20:53 Lymphocytes # 1.8 k/uL (1.0-4.8) 08/24/16 20:53 Monocytes # 0.7 k/uL (0-1.0) 08/24/16 20:53 Eosinophils # 0.0 k/uL (0-0.7) 08/24/16 20:53 Basophils # 0.1 k/uL (0-0.2) 08/24/16 20:53 Sodium 144 mmol/L (137-145) 08/24/16 20:53 Potassium 4.2 mmol/L (3.5-5.1) 08/24/16 20:53 Chloride 102 mmol/L (98-107) 08/24/16 20:53 Carbon Dioxide 27 mmol/L (22-30) 08/24/16 20:53 Anion Gap 15 mmol/L 08/24/16 20:53 BUN 9 mg/dL (7-17) 08/24/16 20:53 Creatinine 0.86 mg/dL (0.52-1.04) 08/24/16 20:53 Est GFR (MDRD) Af Amer >60 (>60 ml/min/1.73 sqM) 08/24/16 20:53 Est GFR (MDRD) Non-Af >60 (>60 ml/min/1.73 sqM) 08/24/16 20:53 Glucose 108 mg/dL (74-99) H 08/24/16 20:53 POC Glucose (mg/dL) 108 mg/dL (75-99) H 08/25/16 06:43 POC Glu Manager Sustainability Samantha Ramirez 08/25/16 06:43 Plasma Lactic Acid Jeff 1.7 mmol/L (0.7-2.0) 08/25/16 08:18 Calcium 10.4 mg/dL (8.4-10.2) H 08/24/16 20:53 Total Bilirubin 0.8 mg/dL (0.2-1.3) 08/24/16 20:53 AST 19 U/L (14-36) 08/24/16 20:53 ALT 17 U/L (9-52) 08/24/16 20:53 Alkaline Phosphatase 87 U/L (38-126) 08/24/16 20:53 Total Protein 8.3 g/dL (6.3-8.2) H 08/24/16 20:53 Albumin 4.9 g/dL (3.5-5.0) 08/24/16 20:53 Urine Color Yellow 08/25/16 10:00 Urine Appearance Clear (Clear) 08/25/16 10:00 Urine pH 6.0 (5.0-8.0) 08/25/16 10:00 Ur Specific [place] 1.032 (1.001-1.035) 08/25/16 10:00 Urine Protein 1+ (Negative) H 08/25/16 10:00 Urine Glucose (UA) Trace (Negative) H 08/25/16 10:00 Urine Ketones 2+ (Negative) H 08/25/16 10:00 Urine Blood Small (Negative) H 08/25/16 10:00 Urine Nitrate Negative (Negative) 08/25/16 10:00 Urine Bilirubin Negative (Negative) 08/25/16 10:00 Urine Urobilinogen <2.0 mg/dL (<2.0) 08/25/16 10:00 Ur Leukocyte Esterase Trace (Negative) H 08/25/16 10:00 Urine RBC 16 /hpf (0-5) H 08/25/16 10:00 Urine WBC 14 /hpf (0-5) H 08/25/16 10:00 Ur Squamous Epith Cells 1 /hpf (0-4) 08/25/16 10:00 Urine Bacteria Rare /hpf (None) H 08/25/16 10:00 Urine Mucus Few /hpf (None) H 08/25/16 10:00 Influenza Type A RNA Not Detected (Not Detectd) 08/24/16 20:53 Influenza Type B (PCR) Not Detected (Not Detectd) 08/24/16 20:53 Microbiology 08/24/16 00:50 Blood Blood Culture - Preliminary No Growth after 48 hours Assessment and Plan (1) Fever Narrative/Plan: 50-year-old woman with history of significant underlying medical illnesses that include degenerative disc disease of her neck status post surgery. She appears to have a chronic pain syndrome with chronic headaches since that time. She's not been seen by neurology and hopefully they will be able to intercede and improve her significant underlying pain syndrome. She be willing to see them in the outpatient setting. She had fever at the time of admission as well as leukocytosis. She was having some gastrointestinal symptoms that have definitely improved except for ongoing nausea and emesis. However this may be related to her medication withdrawal and her significant headache which routinely causes her to have nausea and emesis. It appears that she is improved today. Cultures are in process. I strongly doubt that she has meningitis. Is responding well to current antibiotic therapy. Also help direct her transition to oral antibiotic therapy in the next short period of time. Neurology with pain management hopefully we will to improve her quality of life after discharge. I discussed that I have no distinct treatments for fibromyalgia. And any postinfectious changes from her meningitis are also not distinctly treatable. The patient's cultures are negative. Ceftriaxone was discontinued. Discharge home as per neurology and primary service will follow up with neurology and pain management to improve her overall quality of life there has been so poor for so long. Status: Acute (2) Migraine Status: Acute (3) Leukocytosis Status: Acute
--- NOTE | 2016-08-28 08:06 | DS ---
DATE OF ADMISSION: 08/24/2016 DATE OF DISCHARGE: 08/27/2016 FINAL DIAGNOSES: 1. Status migrainous. 2. Chronic neck pain with muscle spasm from osteoarthritis. 3. Acute urinary tract infection. 4. Chronic fibromyalgia. 5. Gastroesophageal reflux disease. 6. Essential hypertension, uncontrolled on admission. 7. Major depression, recurrent. 8. Anxiety disorder. HOSPITAL COURSE: This patient who presented with headaches, neck pain, fever was found to have a UTI; seen by Dr. Benitez. Meningitis was felt to be extremely unlikely. Give a short course of antibiotics for the UTI. Put on IV steroids, antispasmodic. Blood pressure medications were adjusted. Doing much better by the time of discharge, tolerating a diet. Patient wishes to establish a new family doctor and she will choose the same she said. CONSULTATIONS: Dr. Sánchez from neurology; Dr. Benitez from infectious disease, Dr. Martinez from psychiatry. DISCHARGE MEDICATIONS: 1. Omeprazole 40 mg p.o. daily. 2. Oxycodone 30 mg p.o. q.i.d. p.r.n. 3. Fioricet 1 tablet q.4 p.r.n. 4. Tenormin 50 mg p.o. b.i.d. 5. Baclofen 5 mg p.o. q.6 p.r.n. for muscle spasm. 6. Sinequan 100 mg p.o. q.h.s. 7. Zestoretic 04/11.5 one tablet p.o. b.i.d. 8. Reglan 10 mg p.o. q.8 p.r.n. for nausea. 9. Seroquel XR 100 mg p.o. daily in the evening. 10. Isoptin SR 120 mg p.o. daily. 11. Klonopin 0.25 p.o. b.i.d. Follow up with Dr. Sánchez in one week. Follow up with Dr. Hicks in one week. Follow up with psychiatrist in one week. On examination, lungs are clear. CARDIOVASCULAR: First and second seconds normal.
== END 2016-08-27 17:20 | disposition home or self-care (01) | DRG 103 ==
LOC: EC 19:37 → 5MS5E 23:36
PROVIDERS: ADMIT Hospitalist; ATTEND Hospitalist
DX: G43.901 Migraine, unspecified, not intractable, with status migrainosus (principal); F33.1 Major depressive disorder, recurrent, moderate; I10 Essential (primary) hypertension; N39.0 Urinary tract infection, site not specified; T42.3X6A Underdosing of barbiturates, initial encounter; D72.829 Elevated white blood cell count, unspecified; R19.7 Diarrhea, unspecified; M54.5 Low back pain; R50.9 Fever, unspecified; F41.9 Anxiety disorder, unspecified; R42 Dizziness and giddiness; F22 Delusional disorders; G89.4 Chronic pain syndrome; F43.10 Post-traumatic stress disorder, unspecified; K21.9 Gastro-esophageal reflux disease without esophagitis; M50.30 Other cervical disc degeneration, unspecified cervical region; F51.5 Nightmare disorder; R63.5 Abnormal weight gain; H93.19 Tinnitus, unspecified ear; M62.838 Other muscle spasm; R11.2 Nausea with vomiting, unspecified; M79.7 Fibromyalgia; Z88.2 Allergy status to sulfonamides; Z87.891 Personal history of nicotine dependence; Z82.5 Family history of asthma and other chronic lower respiratory diseases; Z86.61 Personal history of infections of the central nervous system; Z98.1 Arthrodesis status; Z79.891 Long term (current) use of opiate analgesic; Z79.899 Other long term (current) drug therapy; Z90.49 Acquired absence of other specified parts of digestive tract; Z81.1 Family history of alcohol abuse and dependence; Z81.8 Family history of other mental and behavioral disorders; Z62.810 Personal history of physical and sexual abuse in childhood
CPT/HCPCS: 36415; 70450; 71020; 80053; 81001; 83605; 85025; 87040; 87502; 96361; 96374; 96375; 99285

== ENCOUNTER → 2017-11-11 | Outpatient (CLI) | payer OTHER ==
--- NOTE | 2017-11-11 09:39 | MR ---
EXAMINATION TYPE: MR brain wo/w con DATE OF EXAM: 11/11/2017 COMPARISON: NONE HISTORY: 51-year-old female Migraines / History of meningitis/Vomiting TECHNIQUE: Multiplanar, multisequence images of the brain and brainstem were acquired before and aft er administration of 7.5 mL IV Gadavist. Diffusion weighted imaging is performed. FINDINGS: T2/FLAIR weighted sequences show bilateral foci of bright signal change in the splenium of the corpus callosum in a noncentral location measuring up to 9 mm. Additional cortical and subcortical increase d signal is present in the right greater than left occipital lobes and right greater than left pariet o-occipital junctions as well as the right temporal occipital junction. These foci entering the subco rtical and periventricular location. Additional foci extend above the temporal horns measuring up to 1.2 cm on the right and 6 cm on the left. Slightly dirty appearance to the white matter diffusely may be secondary to fast brain protocol. There is no abnormal enhancement or restricted diffusion. No evidence for mass effect, midline shift, or herniation, extra-axial fluid collection, or effacemen t of basal subarachnoid cisterns. The ventricles and sulci are age-appropriate. Major intracranial flow voids are intact. Midline structures demonstrate normal morphology. The craniocervical junction is normal. Dural venous sinuses are patent. The visualized sinuses are clear and the globes are intact. IMPRESSION: 1. 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 Additional scattered bright signal foc i are present along the right greater the left temporal horns. 2. These lesions show no restricted diffusion or abnormal enhancement. Differential considerations in clude old infarcts, PRES, hypoglycemic encephalopathy, and multiple sclerosis. Other toxic encephalo pathies are possible as well but considered less likely.
== END | disposition home or self-care (01) ==
LOC: RADMRIMAIN 08:02
PROVIDERS: ATTEND Hospitalist
DX: G93.9 Disorder of brain, unspecified (principal)
CPT/HCPCS: 70553; A9581

== ENCOUNTER 2017-12-09 10:20 | Inpatient (IN) | payer MEDICARE ==
[2017-12-09] MEDS ORDERED: SODIUM CHLORIDE 0.9% 1,000 ML IV ONE (10:33)
--- NOTE | 2017-12-09 10:39 | ED ---
Altered Mental Status HPI - General Chief Complaint: Altered Mental Status Stated Complaint: Altered Mental Status Time Seen by Provider: 12/09/17 10:20 Source: patient, family, EMS, RN notes reviewed, old records reviewed Mode of arrival: EMS Limitations: altered mental status - History of Present Illness Initial Comments: This is a 52-year-old female with a history of recently being admitted at [facility] in [place] for evaluation of seizures who was reported by her had 3 green lesions also history of hyponatremia hypertension bipolar disorder and opioid use who was brought in by EMS today because of weakness of her legs some progressive confusion and lethargy. She's also has some slurred speech. In route she became unresponsive briefly and started having sonorous respirations. She did wake up upon arrival here she did have a second episode during my examination which lasted perhaps 30 seconds. Patient does have some difficulty hearing. Information is obtained both by paramedics and from the patient's . The patient does respond to some questioning. There is reports as patient possibly fell today and possibly fell over last couple days. No reports of fevers chills sweats or nausea. MD Complaint: altered mental status, decreased responsiveness - Related Data Home Medications Medication Instructions Recorded Confirmed ALPRAZolam [Xanax] 1 mg PO TID PRN 12/09/17 12/09/17 Atenolol [Tenormin] 50 mg PO DAILY 12/09/17 12/09/17 FLUoxetine HCL [PROzac] 60 mg PO DAILY 12/09/17 12/09/17 Isradipine 10 mg PO BID 12/09/17 12/09/17 Ketorolac [Toradol] 10 mg PO Q6H PRN 12/09/17 12/09/17 Lisinopril 40 mg PO DAILY 12/09/17 12/09/17 Prochlorperazine [Compazine] 10 mg PO Q6H PRN 12/09/17 12/09/17 Sodium Chloride Tab 1 gm PO TID 12/09/17 12/09/17 lamoTRIgine [LaMICtal] 100 mg PO BID@,17 12/09/17 12/09/17 oxyCODONE HCL 20 mg PO Q6H 12/09/17 12/09/17 Allergies Allergy/AdvReac Type Severity Reaction Status Date / Time Sulfa (Sulfonamide Allergy Rash/Hives Verified 12/09/17 10:47 Antibiotics) Review of Systems ROS Statement: Those systems with pertinent positive or pertinent negative responses have been documented in the HPI. ROS Other: All systems not noted in ROS Statement are negative. Past Medical History Past Medical History: Fibromyalgia Additional Past Medical History / Comment(s): migraines, chronic back pain, chronic neck pain History of Any Multi-Drug Resistant Organisms: None Reported Past Surgical History: Cholecystectomy Additional Past Surgical History / Comment(s): neck surgery, cyst removal bilateral breast. Past Anesthesia/Blood Transfusion Reactions: No Reported Reaction Past Psychological History: Anxiety, Depression Smoking Status: Current every day smoker Past Alcohol Use History: None Reported Past Drug Use History: None Reported - Past Family History Mother Family Medical History: COPD Father Additional Family Medical History / Comment(s): smoker; etoh; from alcoholism General Exam - General Exam Comments Initial Comments: Is a well-developed well-nourished pale appearing female who is awake but lethargic Limitations: altered mental status, physical limitation General appearance: lethargic Head exam: Present: atraumatic, normocephalic, normal inspection Eye exam: Present: normal appearance, PERRL, EOMI. Absent: scleral icterus, conjunctival injection, periorbital swelling ENT exam: Present: normal exam, mucous membranes moist Neck exam: Present: normal inspection, tenderness. Absent: meningismus, full ROM Respiratory exam: Present: normal lung sounds bilaterally. Absent: respiratory distress, wheezes, rales, rhonchi, stridor Cardiovascular Exam: Present: regular rate, normal rhythm, normal heart sounds. Absent: systolic murmur, diastolic murmur, rubs, gallop, clicks GI/Abdominal exam: Present: soft, normal bowel sounds. Absent: distended, tenderness, guarding, rebound, rigid Extremities exam: Present: normal inspection, full ROM, normal capillary refill. Absent: tenderness, pedal edema, joint swelling, calf tenderness Back exam: Present: normal inspection Neurological exam: Present: alert, oriented X3, CN II-XII intact Psychiatric exam: Present: flat affect Skin exam: Present: warm, dry, intact, pallor. Absent: rash Course Vital Signs 12/09/17 12/09/17 12/09/17 10:26 10:59 12:00 Temperature 97.1 F L Pulse Rate 76 75 77 Respiratory 16 16 16 Rate Blood Pressure 112/66 104/74 109/73 O2 Sat by Pulse 100 100 100 Oximetry 12/09/17 13:00 Temperature Pulse Rate 79 Respiratory 16 Rate Blood Pressure 138/85 O2 Sat by Pulse 100 Oximetry - Reevaluation(s) Reevaluation #1: 12/09/17 13:58 Reevaluation patient reveals she is resting comfortably pending lab work. I did discuss with the patient's and the lab work patient does have evidence of rhabdomyolysis answer renal insufficiency etiology is unclear no further episodes of breath the patient and noted Medical Decision Making - Medical Decision Making I did discuss findings with the patient and his patient will be admitted for IV fluids she has renal insufficiency evidence of right lower lobe increased markings unclear whether this represents of pneumonia patient has been afebrile but she does demonstrate an elevated white blood cell count he patient will be admitted to this facility. I did discuss case with Dr. Ramos. Patient also has elevated troponin which may represent a non-STEMI versus elevated troponin basis of renal insufficiency and rhabdomyolysis. The exact etiology is unclear at this time - Lab Data Result diagrams: 12/09/17 10:35 12/09/17 11:45 Lab Results 12/09/17 12/09/17 12/09/17 Range/Units 10:26 10:35 10:35 WBC 18.6 H (3.8-10.6) k/uL RBC 3.81 (3.80-5.40) m/uL Hgb 11.3 L (11.4-16.0) gm/dL Hct 34.2 (34.0-46.0) % MCV 89.7 (80.0-100.0) fL MCH 29.6 (25.0-35.0) pg MCHC 33.0 (31.0-37.0) g/dL RDW 14.0 (11.5-15.5) % Plt Count 366 (150-450) k/uL Neutrophils % 89 % Lymphocytes % 5 % Monocytes % 5 % Eosinophils % 1 % Basophils % 0 % Neutrophils # 16.6 H (1.3-7.7) k/uL Lymphocytes # 0.9 L (1.0-4.8) k/uL Monocytes # 0.9 (0-1.0) k/uL Eosinophils # 0.1 (0-0.7) k/uL Basophils # 0.0 (0-0.2) k/uL PT 11.1 (9.0-12.0) sec INR 1.2 H (<1.2) APTT 21.2 L (22.0-30.0) sec Sodium (137-145) mmol/L Potassium (3.5-5.1) mmol/L Chloride (98-107) mmol/L Carbon Dioxide (22-30) mmol/L Anion Gap mmol/L BUN (7-17) mg/dL Creatinine (0.52-1.04) mg/dL Est GFR (CKD-EPI)AfAm (>60 ml/min/1.73 sqM) Est GFR (CKD-EPI)NonAf (>60 ml/min/1.73 sqM) Glucose (74-99) mg/dL POC Glucose (mg/dL) 122 H (75-99) mg/dL POC Glu Comic Book Designer ID Laith Pérez Calcium (8.4-10.2) mg/dL Magnesium (1.6-2.3) mg/dL Total Bilirubin (0.2-1.3) mg/dL AST (14-36) U/L ALT (9-52) U/L Alkaline Phosphatase (38-126) U/L Ammonia (<30) umol/L Total Creatine Kinase (30-135) U/L CK-MB (CK-2) (0.0-2.4) ng/mL CK-MB (CK-2) Rel Index Troponin I (0.000-0.034) ng/mL Total Protein (6.3-8.2) g/dL Albumin (3.5-5.0) g/dL Urine Color Urine Appearance (Clear) Urine pH (5.0-8.0) Ur Specific Yoder (1.001-1.035) Urine Protein (Negative) Urine Glucose (UA) (Negative) Urine Ketones (Negative) Urine Blood (Negative) Urine Nitrite (Negative) Urine Bilirubin (Negative) Urine Urobilinogen (<2.0) mg/dL Ur Leukocyte Esterase (Negative) Urine RBC (0-5) /hpf Urine WBC (0-5) /hpf Urine Bacteria (None) /hpf Urine Opiates Screen (NotDetected) Ur Oxycodone Screen (NotDetected) Urine Methadone Screen (NotDetected) Ur Propoxyphene Screen (NotDetected) Ur Barbiturates Screen (NotDetected) U Tricyclic Antidepress (NotDetected) Ur Phencyclidine Scrn (NotDetected) Ur Amphetamines Screen (NotDetected) U Methamphetamines Scrn (NotDetected) U Benzodiazepines Scrn (NotDetected) Urine Cocaine Screen (NotDetected) U Marijuana (THC) Screen (NotDetected) 12/09/17 12/09/17 12/09/17 Range/Units 10:47 10:47 11:45 WBC (3.8-10.6) k/uL RBC (3.80-5.40) m/uL Hgb (11.4-16.0) gm/dL Hct (34.0-46.0) % MCV (80.0-100.0) fL MCH (25.0-35.0) pg MCHC (31.0-37.0) g/dL RDW (11.5-15.5) % Plt Count (150-450) k/uL Neutrophils % % Lymphocytes % % Monocytes % % Eosinophils % % Basophils % % Neutrophils # (1.3-7.7) k/uL Lymphocytes # (1.0-4.8) k/uL Monocytes # (0-1.0) k/uL Eosinophils # (0-0.7) k/uL Basophils # (0-0.2) k/uL PT (9.0-12.0) sec INR (<1.2) APTT (22.0-30.0) sec Sodium 142 (137-145) mmol/L Potassium 5.6 H (3.5-5.1) mmol/L Chloride 98 (98-107) mmol/L Carbon Dioxide 26 (22-30) mmol/L Anion Gap 18 mmol/L BUN 18 H (7-17) mg/dL Creatinine 2.11 H (0.52-1.04) mg/dL Est GFR (CKD-EPI)AfAm 30 (>60 ml/min/1.73 sqM) Est GFR (CKD-EPI)NonAf 26 (>60 ml/min/1.73 sqM) Glucose 113 H (74-99) mg/dL POC Glucose (mg/dL) (75-99) mg/dL POC Glu Comic Book Designer ID Calcium 8.4 (8.4-10.2) mg/dL Magnesium 2.1 (1.6-2.3) mg/dL Total Bilirubin 0.7 (0.2-1.3) mg/dL AST 362 H (14-36) U/L ALT 209 H (9-52) U/L Alkaline Phosphatase 90 (38-126) U/L Ammonia 18 (<30) umol/L Total Creatine Kinase (30-135) U/L CK-MB (CK-2) (0.0-2.4) ng/mL CK-MB (CK-2) Rel Index Troponin I (0.000-0.034) ng/mL Total Protein 5.9 L (6.3-8.2) g/dL Albumin 4.0 (3.5-5.0) g/dL Urine Color Light Yellow Urine Appearance Clear (Clear) Urine pH 7.0 (5.0-8.0) Ur Specific Yoder 1.002 (1.001-1.035) Urine Protein Negative (Negative) Urine Glucose (UA) Negative (Negative) Urine Ketones Negative (Negative) Urine Blood Moderate H (Negative) Urine Nitrite Negative (Negative) Urine Bilirubin Negative (Negative) Urine Urobilinogen <2.0 (<2.0) mg/dL Ur Leukocyte Esterase Negative (Negative) Urine RBC 1 (0-5) /hpf Urine WBC 1 (0-5) /hpf Urine Bacteria Rare H (None) /hpf Urine Opiates Screen Not Detected (NotDetected) Ur Oxycodone Screen Detected H (NotDetected) Urine Methadone Screen Not Detected (NotDetected) Ur Propoxyphene Screen Not Detected (NotDetected) Ur Barbiturates Screen Not Detected (NotDetected) U Tricyclic Antidepress Not Detected (NotDetected) Ur Phencyclidine Scrn Not Detected (NotDetected) Ur Amphetamines Screen Not Detected (NotDetected) U Methamphetamines Scrn Not Detected (NotDetected) U Benzodiazepines Scrn Detected H (NotDetected) Urine Cocaine Screen Not Detected (NotDetected) U Marijuana (THC) Screen Not Detected (NotDetected) 12/09/17 Range/Units 11:45 WBC (3.8-10.6) k/uL RBC (3.80-5.40) m/uL Hgb (11.4-16.0) gm/dL Hct (34.0-46.0) % MCV (80.0-100.0) fL MCH (25.0-35.0) pg MCHC (31.0-37.0) g/dL RDW (11.5-15.5) % Plt Count (150-450) k/uL Neutrophils % % Lymphocytes % % Monocytes % % Eosinophils % % Basophils % % Neutrophils # (1.3-7.7) k/uL Lymphocytes # (1.0-4.8) k/uL Monocytes # (0-1.0) k/uL Eosinophils # (0-0.7) k/uL Basophils # (0-0.2) k/uL PT (9.0-12.0) sec INR (<1.2) APTT (22.0-30.0) sec Sodium (137-145) mmol/L Potassium (3.5-5.1) mmol/L Chloride (98-107) mmol/L Carbon Dioxide (22-30) mmol/L Anion Gap mmol/L BUN (7-17) mg/dL Creatinine (0.52-1.04) mg/dL Est GFR (CKD-EPI)AfAm (>60 ml/min/1.73 sqM) Est GFR (CKD-EPI)NonAf (>60 ml/min/1.73 sqM) Glucose (74-99) mg/dL POC Glucose (mg/dL) (75-99) mg/dL POC Glu Comic Book Designer ID Calcium (8.4-10.2) mg/dL Magnesium (1.6-2.3) mg/dL Total Bilirubin (0.2-1.3) mg/dL AST (14-36) U/L ALT (9-52) U/L Alkaline Phosphatase (38-126) U/L Ammonia (<30) umol/L Total Creatine Kinase 6865 H (30-135) U/L CK-MB (CK-2) 37.6 H* (0.0-2.4) ng/mL CK-MB (CK-2) Rel Index Troponin I 0.263 H* (0.000-0.034) ng/mL Total Protein (6.3-8.2) g/dL Albumin (3.5-5.0) g/dL Urine Color Urine Appearance (Clear) Urine pH (5.0-8.0) Ur Specific Yoder (1.001-1.035) Urine Protein (Negative) Urine Glucose (UA) (Negative) Urine Ketones (Negative) Urine Blood (Negative) Urine Nitrite (Negative) Urine Bilirubin (Negative) Urine Urobilinogen (<2.0) mg/dL Ur Leukocyte Esterase (Negative) Urine RBC (0-5) /hpf Urine WBC (0-5) /hpf Urine Bacteria (None) /hpf Urine Opiates Screen (NotDetected) Ur Oxycodone Screen (NotDetected) Urine Methadone Screen (NotDetected) Ur Propoxyphene Screen (NotDetected) Ur Barbiturates Screen (NotDetected) U Tricyclic Antidepress (NotDetected) Ur Phencyclidine Scrn (NotDetected) Ur Amphetamines Screen (NotDetected) U Methamphetamines Scrn (NotDetected) U Benzodiazepines Scrn (NotDetected) Urine Cocaine Screen (NotDetected) U Marijuana (THC) Screen (NotDetected) - EKG Data -: EKG Interpreted by Id EKG shows normal: sinus rhythm (No sinus rhythm a 75 appear interval 168 QRS 82 QT since QTC 396/[address]-T wave changes some artifact is present) - Radiology Data Radiology results: report reviewed, image reviewed (I did review the imaging and report. No acute findings) Critical Care Time Critical Care Time: Yes Critical Care Time: 31 minutes of critical care time which includes monitoring the EMS run and discussed with paramedics history physical labs x-rays several reevaluation of the patient. Discussed with the patient family regarding the findings. Discussion with the admitting physician review of old charting documentation the above and admission orders. Disposition Clinical Impression: Rhabdomyolysis, Renal insufficiency, Right lower lobe pneumonia, Elevated troponin I level Disposition: ADMITTED IP TO THIS [facility] Condition: Stable Referrals: Beatriz Hudson MD [Primary Care Provider] - 1-2 days
[2017-12-09 10:59] LABS: Glucose,Whole Blood 122 mg/dL (75-99)
[2017-12-09 11:01] LABS: Basophils % (A) 0 %; Eosinophils # (A) 0.1 k/uL (0-0.7); Eosinophils % (A) 1 %; HCT 34.2 % (34.0-46.0); HGB 11.3 gm/dL (11.4-16.0); Lymphocytes # (A) 0.9 k/uL (1.0-4.8); Lymphocytes % (A) 5 %; MCH 29.6 pg (25.0-35.0); MCV 89.7 fL (80.0-100.0); Mean Platelet Volume 7.2; Monocytes # (A) 0.9 k/uL (0-1.0); Monocytes % (A) 5 %; Neutrophils # (A) 16.6 k/uL (1.3-7.7); Neutrophils % (A) 89 %; Platelet Count 366 k/uL (150-450); RBC 3.81 m/uL (3.80-5.40); WBC 18.6 k/uL (3.8-10.6)
[2017-12-09 11:11] LABS: Appearance,Urine Clear (Clear); Bacteria,Urine Rare /hpf; Bilirubin,Urine Negative (Negative); Blood,Urine Moderate (Negative); Color,Urine Light Yellow; Glucose,Urine (UA) Negative (Negative); Ketones,Urine Negative (Negative); Leukocyte Esterase,Urine Negative (Negative); Nitrite,Urine Negative (Negative); Protein,Urine Negative (Negative); RBC,Urine 1 /hpf (0-5); Specific Gravity,Urine 1.002 (1.001-1.035); Urobilinogen,Urine <2.0 mg/dL (<2.0); WBC,Urine 1 /hpf (0-5)
[2017-12-09 11:20] LABS: Amphetamine Screen,Urine Not Detected (NotDetected); Barbiturate Screen,Urine Not Detected (NotDetected); Benzodiazepines Screen,Urine Detected (NotDetected); Cocaine Screen,Urine Not Detected (NotDetected); Methadone Screen, Urine Not Detected (NotDetected); Opiate Screen,Urine Not Detected (NotDetected); Oxycodone Screen, Urine Detected (NotDetected); Phencyclidine Screen,Urine Not Detected (NotDetected); Tricyclic Antidepressant,Urine Not Detected (NotDetected); Urn Cannabinoid Scrn Not Detected (NotDetected)
[2017-12-09 11:45] LABS: INR 1.2 (<1.2); Partial Thromboplastin Time 21.2 sec (22.0-30.0); Prothrombin Time 11.1 sec (9.0-12.0)
--- NOTE | 2017-12-09 12:04 | CT ---
EXAMINATION TYPE: CT brain cspine wo con DATE OF EXAM: 12/09/2017 COMPARISON: CT cervical spine October 04, 2016. CT brain August 24, 2016 HISTORY: Fall and altered mental status and neck pain. CT DLP: 1526.1 mGycm. Automated Exposure Control for Dose Reduction was Utilized. TECHNIQUE: CT scan of the head and cervical spine are performed without contrast. FINDINGS: There is no acute intracranial hemorrhage, mass effect, or midline shift identified. The ventricles and sulci are within normal limits in size. The globes are intact and the visualized sin uses are clear. The calvarium is intact. Cervical spine is visualized in its entirety from C1 through upper thoracic levels and redemonstrates satisfactory alignment without evidence of acute fracture or dislocation. Prevertebral soft tissue appears within normal limits. The C1-C2 articulation is within normal limits on the coronal images. Vertebral body heights are maintained. There is redemonstration anterior fusion plate and artificial disc material at C5-C7 levels. The disc space heights are satisfactory above and below surgical level s. Spinal canal is preserved. Axial images show mild to moderate right-sided neural foraminal narrowing C3-C4 level due to marginal spurring and uncovertebral facet arthropathy not significantly changed from prior. Axial images at C4-C5 level redemonstrate bilateral uncovertebral facet degenerative changes causing mild right greater than left neural foraminal narrowing. Lung apices are clear. Nondependent venous gas likely from IV placement is seen right internal jugula r vein axial image 40. IMPRESSION: 1. There is no acute fracture or dislocation evident in the cervical spine. 2. No acute intracranial hemorrhage or midline shift is seen. No significant change from prior studies.
[2017-12-09 12:20] LABS: Calcium 8.4 mg/dL (8.4-10.2); Magnesium 2.1 mg/dL (1.6-2.3); Potassium 5.6 mmol/L (3.5-5.1); Total Bilirubin 0.7 mg/dL (0.2-1.3); Total Protein 5.9 g/dL (6.3-8.2)
--- NOTE | 2017-12-09 12:57 | XR ---
EXAMINATION TYPE: XR chest 1V portable DATE OF EXAM: 12/09/2017 COMPARISON: Chest x-ray August 25, 2016. HISTORY: Altered mental status and weakness TECHNIQUE: Single AP portable frontal upright view of the chest is obtained. FINDINGS: There is new patchy right basilar opacity. Diminished inspiration is seen on current stud y. Left lung is clear. No pleural effusion or pneumothorax is evident bilaterally. The cardiac silhou ette size remains within normal limits. Anterior fusion plate lower cervical spine is seen. Cholecyst ectomy clips are noted. IMPRESSION: Diminished inspiration with new patchy right basilar atelectasis and/or infiltrate.
[2017-12-09 12:59] LABS: Troponin I 0.263 ng/mL (0.000-0.034)
[2017-12-09 13:11] LABS: Creatine Kinase MB 37.6 ng/mL (0.0-2.4)
[2017-12-09] MEDS ORDERED: cefTRIAXone IN SWFI 1,000 MG/10 ML SYRINGE IVP STA (14:00)
[2017-12-09] MEDS ORDERED: SODIUM CHLORIDE 0.9% 500 ML IV STA (14:00)
[2017-12-09] MEDS ORDERED: SODIUM CHLORIDE 0.9% 1,000 ML IV STA (14:00)
[2017-12-09] MEDS ORDERED: NITROGLYCERIN SL TABS 0.4 MG TAB SUBLINGUAL PRN (14:03)
[2017-12-09] MEDS ORDERED: AZITHROMYCIN 500 MG in SODIUM CHLORIDE 0.9% 250 ML IVPB STA (14:07)
--- NOTE | 2017-12-09 15:05 | P.HPIM ---
History of Present Illness H&P Date: 12/09/17 Chief Complaint: Fall 52-year-old female who was recently admitted at [facility] in [place] for evaluation of new onset seizures and was found to have some brain lesions, was told to follow up with a brain MRI in 6 weeks presented to the emergency department because of general weakness, confusion, lethargy, memory difficulties and multiple falls. Before discharge from she was told that she needed rehabilitation but she declined and wanted to go home. She fell first in the kitchen 4 days ago, after that she crawled to the bedroom to wake up her as she could not get up. She attributed the falls due to general weakness. She denied focal weakness or numbness. No slurred speech, has chronic blurred vision. She chronically has migraine with a flareup every month on average and currently she has slightly worse headache than baseline. She has associated nausea with that but no vomiting. No chest pain or shortness of breath. No cough. No fevers or chills. After she was discharged from she did not have any further seizures. stated that patient could not move any of her legs when EMS came to the house. In route she became unresponsive briefly and started having sonorous respirations according to the EMS report. According to the ER physician's documentation and upon arrival to the ER she did have a second episode of unresponsiveness which lasted perhaps 30 seconds. Review of Systems 12 point review of system performed, negative except HPI Past Medical History Past Medical History: Fibromyalgia, Hypertension Additional Past Medical History / Comment(s): migraines, chronic back pain, chronic neck pain, recently diagnosed brain lesions History of Any Multi-Drug Resistant Organisms: None Reported Past Surgical History: Cholecystectomy Additional Past Surgical History / Comment(s): neck surgery, cyst removal bilateral breast. Past Anesthesia/Blood Transfusion Reactions: No Reported Reaction Past Psychological History: Anxiety, Depression Smoking Status: Current every day smoker Past Alcohol Use History: None Reported Past Drug Use History: None Reported - Past Family History Mother Family Medical History: COPD Father Additional Family Medical History / Comment(s): smoker; etoh; from alcoholism Medications and Allergies Home Medications Medication Instructions Recorded Confirmed Type ALPRAZolam [Xanax] 1 mg PO TID PRN 12/09/17 12/09/17 History Atenolol [Tenormin] 50 mg PO DAILY 12/09/17 12/09/17 History FLUoxetine HCL [PROzac] 60 mg PO DAILY 12/09/17 12/09/17 History Isradipine 10 mg PO BID 12/09/17 12/09/17 History Ketorolac [Toradol] 10 mg PO Q6H PRN 12/09/17 12/09/17 History Lisinopril 40 mg PO DAILY 12/09/17 12/09/17 History Prochlorperazine [Compazine] 10 mg PO Q6H PRN 12/09/17 12/09/17 History Sodium Chloride Tab 1 gm PO TID 12/09/17 12/09/17 History lamoTRIgine [LaMICtal] 100 mg PO BID@,17 12/09/17 12/09/17 History oxyCODONE HCL 20 mg PO Q6H 12/09/17 12/09/17 History Allergies Allergy/AdvReac Type Severity Reaction Status Date / Time Sulfa (Sulfonamide Allergy Rash/Hives Verified 12/09/17 10:47 Antibiotics) Physical Exam Vitals: Vital Signs Temp Pulse Resp BP Pulse Ox 12/09/17 14:16 84 18 134/82 99 12/09/17 13:00 79 16 138/85 100 12/09/17 12:00 77 16 109/73 100 12/09/17 10:59 75 16 104/74 100 12/09/17 10:26 97.1 F L 76 16 112/66 100 Intake and Output 12/08/17 12/09/17 12/09/17 22:59 06:59 14:59 Other: Weight 81.647 kg Constitutional: No acute distress, conversant, pleasant Eyes:Anicteric sclerae, moist conjunctiva, no lid-lag, PERRLA, ENMT: Dry mucous membranes, Oropharynx clear, no erythema, exudates Neck: Supple, FROM, no masses, or JVD, No carotid bruits, No thyromegaly Lungs: Clear to auscultation, Clear to percussion, Normal respiratory effort, no accessory muscle use Cardiovascular: Heart regular in rate and rhythm, No murmurs, gallops, or rubs, No peripheral edema Abdominal: Soft, Nontender, no guarding, rebound or rigidity, Normoactive bowel sounds, No hepatomegaly, No splenomegaly, No palpable mass Skin: Normal temperature, tone, texture, turgor, no induration, No subcutaneous nodules, No rash, lesions, No ulcers Extremities: Left leg weakness secondary to pain, No digital cyanosis, No clubbing, Pedal pulses intact and symmetrical, Radial pulses intact and symmetrical, No calf tenderness Psychiatric: Alert and oriented to person, place and time, appropriate affect, intact judgement Neuro: Gen. weakness, no focal sensory deficits Results CBC & Chem 7: 12/09/17 10:35 12/09/17 11:45 Labs: Abnormal Lab Results - Last 24 Hours (Table) 12/09/17 12/09/17 12/09/17 Range/Units 10:26 10:35 10:35 WBC 18.6 H (3.8-10.6) k/uL Hgb 11.3 L (11.4-16.0) gm/dL Neutrophils # 16.6 H (1.3-7.7) k/uL Lymphocytes # 0.9 L (1.0-4.8) k/uL INR 1.2 H (<1.2) APTT 21.2 L (22.0-30.0) sec Potassium (3.5-5.1) mmol/L BUN (7-17) mg/dL Creatinine (0.52-1.04) mg/dL Glucose (74-99) mg/dL POC Glucose (mg/dL) 122 H (75-99) mg/dL AST (14-36) U/L ALT (9-52) U/L Total Creatine Kinase (30-135) U/L CK-MB (CK-2) (0.0-2.4) ng/mL Troponin I (0.000-0.034) ng/mL Total Protein (6.3-8.2) g/dL Urine Blood (Negative) Urine Bacteria (None) /hpf Ur Oxycodone Screen (NotDetected) U Benzodiazepines Scrn (NotDetected) 12/09/17 12/09/17 12/09/17 Range/Units 10:47 11:45 11:45 WBC (3.8-10.6) k/uL Hgb (11.4-16.0) gm/dL Neutrophils # (1.3-7.7) k/uL Lymphocytes # (1.0-4.8) k/uL INR (<1.2) APTT (22.0-30.0) sec Potassium 5.6 H (3.5-5.1) mmol/L BUN 18 H (7-17) mg/dL Creatinine 2.11 H (0.52-1.04) mg/dL Glucose 113 H (74-99) mg/dL POC Glucose (mg/dL) (75-99) mg/dL AST 362 H (14-36) U/L ALT 209 H (9-52) U/L Total Creatine Kinase 6865 H (30-135) U/L CK-MB (CK-2) 37.6 H* (0.0-2.4) ng/mL Troponin I 0.263 H* (0.000-0.034) ng/mL Total Protein 5.9 L (6.3-8.2) g/dL Urine Blood Moderate H (Negative) Urine Bacteria Rare H (None) /hpf Ur Oxycodone Screen Detected H (NotDetected) U Benzodiazepines Scrn Detected H (NotDetected) Assessment and Plan Plan: Acute rhabdomyolysis: Labs reviewed Likely secondary to multiple falls Recheck CK in a.m. IV fluids Elevated troponins: Likely secondary to above No chest pain or shortness of breath History of cardiac conditions Cycle troponins Acute renal failure with hyperkalemia: Baseline creatinine within normal limits Likely combination of dehydration and #1 IV fluids as above Avoid nephrotoxic medications Recheck creatinine in the morning Recently diagnosed brain lesions/seizure: Obtain records from [facility], communicated with unit control clerk Migraines, fibromyalgia, essential hypertension, chronic back pain, chronic neck pain: Hold lisinopril secondary to renal failure Resume rest of home medications. DVT prophylaxis SCDs General weakness PT and OT Anticipated discharge: 2-3 days
--- NOTE | 2017-12-09 15:44 | XR ---
EXAMINATION TYPE: XR Hip Complete LT DATE OF EXAM: 12/09/2017 COMPARISON: NONE HISTORY: Pain, fall TECHNIQUE: Left hip is examined in 2 views FINDINGS: Joint spaces preserved. Femoral head articulates with the acetabulum. No acute fractures ev ident. IMPRESSION: 1. Normal left hip
--- NOTE | 2017-12-09 15:45 | XR ---
EXAMINATION TYPE: XR lumbar spine 2 or 3V DATE OF EXAM: 12/09/2017 COMPARISON: NONE HISTORY: Fall, pain TECHNIQUE: 3 view lumbar spine FINDINGS: There 5 lumbar-type vertebral bodies. The pedicles are intact. Vertebral body heights are p reserved. There is narrowing of the L5-S1 disc height. Remaining disc heights are preserved. Alignmen t is unremarkable. IMPRESSION: 1. Degenerative disc changes L5-S1.
--- NOTE | 2017-12-09 15:46 | XR ---
EXAMINATION TYPE: XR femur LT DATE OF EXAM: 12/09/2017 COMPARISON: NONE HISTORY: Fall, pain TECHNIQUE: Two-view femur FINDINGS: Left femur is examined in 2 views. There is narrowing of the knee joint space. The hip join t spaces preserved. No acute fractures are evident. IMPRESSION: 1. Normal 2 view left femur
--- NOTE | 2017-12-09 15:47 | XR ---
EXAMINATION TYPE: XR knee complete LT DATE OF EXAM: 12/09/2017 COMPARISON: NONE HISTORY: Fall, pain TECHNIQUE: Three-view left knee FINDINGS: No acute fractures are evident. No joint fluid is evident. Joint spaces are preserved. Foll ow-up studies can be performed 7-10 days from acute trauma for continued pain. IMPRESSION: 1. Normal three-view left knee
[2017-12-09] MEDS: SODIUM CHLORIDE 0.9% 1,000 ML IV SCH ×2 (16:04→20:15)
[2017-12-09] MEDS: lamoTRIgine 100 MG TAB PO SCH (16:50)
[2017-12-09] MEDS: SODIUM CHLORIDE TAB 1 GM TAB PO SCH ×2 (16:50→20:06)
[2017-12-09 18:42] LABS: Creatine Kinase MB 37.9 ng/mL (0.0-2.4); Troponin I 0.441 ng/mL (0.000-0.034)
[2017-12-09] MEDS: amLODIPine 10 MG TAB PO SCH (20:06)
[2017-12-09] MEDS: ACETAMINOPHEN TAB 325 MG TAB PO PRN (20:12)
[2017-12-09] MEDS: ALPRAZolam 1 MG TAB PO PRN (21:19)
[2017-12-10 00:53] LABS: Creatine Kinase MB 22.1 ng/mL (0.0-2.4); Troponin I 0.4 ng/mL (0.000-0.034)
[2017-12-10] MEDS: ACETAMINOPHEN TAB 325 MG TAB PO PRN (02:32)
[2017-12-10] MEDS ORDERED: MORPHINE SULFATE 2 MG/ML SYRINGE IVP STA (02:38)
[2017-12-10] MEDS: SODIUM CHLORIDE 0.9% 1,000 ML IV SCH ×4 (06:05→21:04)
[2017-12-10 06:45] LABS: Basophils % (A) 0 %; Eosinophils % (A) 0 %; HCT 30.9 % (34.0-46.0); HGB 10.4 gm/dL (11.4-16.0); Lymphocytes # (A) 1.7 k/uL (1.0-4.8); Lymphocytes % (A) 13 %; MCH 29.8 pg (25.0-35.0); MCHC 33.7 g/dL (31.0-37.0); MCV 88.4 fL (80.0-100.0); Mean Platelet Volume 7.1; Monocytes # (A) 1.2 k/uL (0-1.0); Monocytes % (A) 10 %; Neutrophils # (A) 9.6 k/uL (1.3-7.7); Neutrophils % (A) 75 %; Platelet Count 338 k/uL (150-450); RBC 3.49 m/uL (3.80-5.40); RDW 14.4 % (11.5-15.5); WBC 12.7 k/uL (3.8-10.6)
[2017-12-10 06:52] LABS: Albumin 3.1 g/dL (3.5-5.0); Calcium 8.3 mg/dL (8.4-10.2); Magnesium 2.1 mg/dL (1.6-2.3); Phosphorus 3.6 mg/dL (2.5-4.5); Potassium 4.4 mmol/L (3.5-5.1); Total Bilirubin 0.3 mg/dL (0.2-1.3)
[2017-12-10] MEDS ORDERED: AZITHROMYCIN 500 MG in SODIUM CHLORIDE 0.9% 250 ML IVPB SCH (09:00)
[2017-12-10] MEDS: FLUoxetine HCL 20 MG CAP PO SCH (09:05)
[2017-12-10] MEDS: ASPIRIN 325 MG TAB PO SCH (09:05)
[2017-12-10] MEDS: ATENOLOL 50 MG TAB PO SCH (09:05)
[2017-12-10] MEDS: cefTRIAXone IN SWFI 1,000 MG/10 ML SYRINGE IVP SCH (09:05)
[2017-12-10] MEDS: lamoTRIgine 100 MG TAB PO SCH ×2 (09:06→15:57)
[2017-12-10] MEDS: SODIUM CHLORIDE TAB 1 GM TAB PO SCH ×3 (09:06→21:04)
--- NOTE | 2017-12-10 09:18 | P.PN ---
Subjective Progress Note Date: 12/10/17 Principal diagnosis: Weakness and falls Feeling a little better, still having severe pain in the left buttocks, hip areas. Unable to move her leg much sec to pain. Objective - Vital Signs Vital signs: Vital Signs Temp 97.8 F 12/10/17 04:00 Pulse 93 12/10/17 04:00 Resp 16 12/10/17 04:00 BP 134/76 12/10/17 04:00 Pulse Ox 91 L 12/10/17 07:57 Intake & Output 12/09/17 12/10/17 12/10/17 18:59 06:59 18:59 Intake Total 1740 2400 360 Output Total 2700 Balance 1740 -300 360 Weight 81.647 kg 88 kg Intake: IV 2400 Sodium Chloride 0.9% 1, 2400 000 ml @ 150 mls/hr IV . Q6H40M [facility] Rx#:[id number] Amount of Fluid Infused ( 1500 ml) Oral 240 360 Output: Urine 2700 Other: Voiding Method Indwelling Catheter Indwelling Catheter - Exam Constitutional: No acute distress, conversant, pleasant Eyes:Anicteric sclerae, moist conjunctiva, no lid-lag, PERRLA, ENMT: Dry mucous membranes, Oropharynx clear, no erythema, exudates Neck: Supple, FROM, no masses, or JVD, No carotid bruits, No thyromegaly Lungs: Clear to auscultation, Clear to percussion, Normal respiratory effort, no accessory muscle use Cardiovascular: Heart regular in rate and rhythm, No murmurs, gallops, or rubs, No peripheral edema Abdominal: Soft, Nontender, no guarding, rebound or rigidity, Normoactive bowel sounds, No hepatomegaly, No splenomegaly, No palpable mass Skin: Normal temperature, tone, texture, turgor, no induration, No subcutaneous nodules, No rash, lesions, No ulcers Extremities: Left leg weakness secondary to pain, No digital cyanosis, No clubbing, Pedal pulses intact and symmetrical, Radial pulses intact and symmetrical, No calf tenderness Psychiatric: Alert and oriented to person, place and time, appropriate affect, intact judgement Neuro: Gen. weakness, no focal sensory deficits - Labs CBC & Chem 7: 12/10/17 06:11 12/10/17 06:11 Labs: Abnormal Lab Results - Last 24 Hours (Table) 12/09/17 12/09/17 12/09/17 Range/Units 10:26 10:35 10:35 WBC 18.6 H (3.8-10.6) k/uL RBC (3.80-5.40) m/uL Hgb 11.3 L (11.4-16.0) gm/dL Hct (34.0-46.0) % Neutrophils # 16.6 H (1.3-7.7) k/uL Lymphocytes # 0.9 L (1.0-4.8) k/uL Monocytes # (0-1.0) k/uL INR 1.2 H (<1.2) APTT 21.2 L (22.0-30.0) sec Potassium (3.5-5.1) mmol/L BUN (7-17) mg/dL Creatinine (0.52-1.04) mg/dL Glucose (74-99) mg/dL POC Glucose (mg/dL) 122 H (75-99) mg/dL Calcium (8.4-10.2) mg/dL AST (14-36) U/L ALT (9-52) U/L Total Creatine Kinase (30-135) U/L CK-MB (CK-2) (0.0-2.4) ng/mL Troponin I (0.000-0.034) ng/mL Total Protein (6.3-8.2) g/dL Albumin (3.5-5.0) g/dL Triglycerides (<150) mg/dL Procalcitonin (0.02-0.09) ng/mL Urine Blood (Negative) Urine Bacteria (None) /hpf Ur Oxycodone Screen (NotDetected) U Benzodiazepines Scrn (NotDetected) 12/09/17 12/09/17 12/09/17 Range/Units 10:47 11:45 11:45 WBC (3.8-10.6) k/uL RBC (3.80-5.40) m/uL Hgb (11.4-16.0) gm/dL Hct (34.0-46.0) % Neutrophils # (1.3-7.7) k/uL Lymphocytes # (1.0-4.8) k/uL Monocytes # (0-1.0) k/uL INR (<1.2) APTT (22.0-30.0) sec Potassium 5.6 H (3.5-5.1) mmol/L BUN 18 H (7-17) mg/dL Creatinine 2.11 H (0.52-1.04) mg/dL Glucose 113 H (74-99) mg/dL POC Glucose (mg/dL) (75-99) mg/dL Calcium (8.4-10.2) mg/dL AST 362 H (14-36) U/L ALT 209 H (9-52) U/L Total Creatine Kinase 6865 H (30-135) U/L CK-MB (CK-2) 37.6 H* (0.0-2.4) ng/mL Troponin I 0.263 H* (0.000-0.034) ng/mL Total Protein 5.9 L (6.3-8.2) g/dL Albumin (3.5-5.0) g/dL Triglycerides (<150) mg/dL Procalcitonin (0.02-0.09) ng/mL Urine Blood Moderate H (Negative) Urine Bacteria Rare H (None) /hpf Ur Oxycodone Screen Detected H (NotDetected) U Benzodiazepines Scrn Detected H (NotDetected) 12/09/17 12/09/17 12/09/17 Range/Units 17:50 17:50 23:37 WBC (3.8-10.6) k/uL RBC (3.80-5.40) m/uL Hgb (11.4-16.0) gm/dL Hct (34.0-46.0) % Neutrophils # (1.3-7.7) k/uL Lymphocytes # (1.0-4.8) k/uL Monocytes # (0-1.0) k/uL INR (<1.2) APTT (22.0-30.0) sec Potassium (3.5-5.1) mmol/L BUN (7-17) mg/dL Creatinine (0.52-1.04) mg/dL Glucose (74-99) mg/dL POC Glucose (mg/dL) (75-99) mg/dL Calcium (8.4-10.2) mg/dL AST (14-36) U/L ALT (9-52) U/L Total Creatine Kinase 7684 H 6470 H (30-135) U/L CK-MB (CK-2) 37.9 H* 22.1 H* (0.0-2.4) ng/mL Troponin I 0.441 H* 0.400 H* (0.000-0.034) ng/mL Total Protein (6.3-8.2) g/dL Albumin (3.5-5.0) g/dL Triglycerides (<150) mg/dL Procalcitonin 2.88 H (0.02-0.09) ng/mL Urine Blood (Negative) Urine Bacteria (None) /hpf Ur Oxycodone Screen (NotDetected) U Benzodiazepines Scrn (NotDetected) 12/10/17 12/10/17 Range/Units 06:11 06:11 WBC 12.7 H (3.8-10.6) k/uL RBC 3.49 L (3.80-5.40) m/uL Hgb 10.4 L (11.4-16.0) gm/dL Hct 30.9 L (34.0-46.0) % Neutrophils # 9.6 H (1.3-7.7) k/uL Lymphocytes # (1.0-4.8) k/uL Monocytes # 1.2 H (0-1.0) k/uL INR (<1.2) APTT (22.0-30.0) sec Potassium (3.5-5.1) mmol/L BUN 23 H (7-17) mg/dL Creatinine 1.92 H (0.52-1.04) mg/dL Glucose (74-99) mg/dL POC Glucose (mg/dL) (75-99) mg/dL Calcium 8.3 L (8.4-10.2) mg/dL AST 184 H (14-36) U/L ALT 151 H (9-52) U/L Total Creatine Kinase (30-135) U/L CK-MB (CK-2) (0.0-2.4) ng/mL Troponin I (0.000-0.034) ng/mL Total Protein 5.0 L (6.3-8.2) g/dL Albumin 3.1 L (3.5-5.0) g/dL Triglycerides 153 H (<150) mg/dL Procalcitonin (0.02-0.09) ng/mL Urine Blood (Negative) Urine Bacteria (None) /hpf Ur Oxycodone Screen (NotDetected) U Benzodiazepines Scrn (NotDetected) Assessment and Plan Plan: Acute rhabdomyolysis: Labs reviewed Likely secondary to multiple falls Continue IV fluids Elevated troponins: Likely secondary to above No chest pain or shortness of breath Check echo and consult cardio. Acute renal failure with hyperkalemia: Improving IV fluids as above Avoid nephrotoxic medications Recheck creatinine in the morning Recently diagnosed brain lesions/seizure: Outpatient follow up with MRI Migraines, fibromyalgia, essential hypertension, chronic back pain, chronic neck pain: Hold lisinopril secondary to renal failure Resume rest of home medications. DVT prophylaxis SCDs General weakness PT and OT Anticipated discharge: 1-2 days Disposition: Likely will require rehab
[2017-12-10 10:26] VITALS: BMI 28.6
--- NOTE | 2017-12-10 10:26 | ECHOF ---
Referral Reason:elevated trops MEASUREMENTS -------- HEIGHT: 175.3 cm WEIGHT: 88.0 kg BP: 134/76 IVSd: 1.5 cm (0.6 - 1.1) LVIDd: 2.2 cm (3.9 - 5.3) LVPWd: 1.5 cm (0.6 - 1.1) IVSs: 1.7 cm LVIDs: 1.7 cm LVPWs: 1.4 cm Ao Diam: 2.6 cm (2.0 - 3.7) AV Cusp: 1.8 cm (1.5 - 2.6) LA Diam: 3.0 cm (2.7 - 3.8) MV EXCURSION: 24.295 mm (> 18.000) MV EF SLOPE: 182 mm/s (70 - 150) EPSS: 1.1 cm MV E Jose L: 0.90 m/s MV DecT: 161 ms MV A Jose L: 0.72 m/s MV E/A Ratio: 1.24 RAP: 5.00 mmHg RVSP: 11.77 mmHg FINDINGS -------- Sinus rhythm. This was a technically difficult study with suboptimal views. The left ventricular size is normal. There is moderate concentric left ventricular hypertrophy. O verall left ventricular systolic function is normal with, an EF between 55 - 60 %. The right ventricle is normal in size and function. The left atrium is normal in size. The right atrium is normal in size. Lumason used The aortic valve is trileaflet, and appears structurally normal. No aortic stenosis or regurgitation. The mitral valve leaflets are mildly thickened. Moderate mitral regurgitation is present. Mild tricuspid regurgitation present. The right ventricular systolic pressure, as measured by Doppl er, is 11.77mmHg. Pulmonic valve appears structurally normal. The aortic root size is normal. The pericardium is normal. CONCLUSIONS -------- 1. Sinus rhythm. 2. This was a technically difficult study with suboptimal views. 3. The left ventricular size is normal. 4. There is moderate concentric left ventricular hypertrophy. 5. Overall left ventricular systolic function is normal with, an EF between 55 - 60 %. 6. The right ventricle is normal in size and function. 7. The left atrium is normal in size. 8. The right atrium is normal in size. 9. Lumason used 10. The aortic valve is trileaflet, and appears structurally normal. No aortic stenosis or regurgitat ion. 11. The mitral valve leaflets are mildly thickened. 12. Moderate mitral regurgitation is present. 13. Mild tricuspid regurgitation present. 14. The right ventricular systolic pressure, as measured by Doppler, is 11.77mmHg. 15. Pulmonic valve appears structurally normal. 16. The aortic root size is normal. 17. The pericardium is normal. [employer] CONVERTOR OPERATOR: Yasmine Cheema RDCS
--- NOTE | 2017-12-10 11:25 | CONS ---
CONSULTATION A 52-year-old female for whom a cardiology consult was placed on account of abnormal troponins. This is a lady who has a history of recurrent seizures, hyponatremia, hypertension, bipolar disorder, . She was brought into the hospital for weakness in the legs and progressive confusion, lethargy. She is also having periods of apnea. Upon my questioning, she denies any chest discomfort. No breathing trouble, which she does describe some grunting sounds. Telemetry shows sinus rhythm and sinus tachycardia. A 12-lead ECG shows sinus rhythm without any ST-segment abnormalities. While her troponins are borderline elevated, CPKs are significantly elevated consistent with skeletal muscle release rather than cardiac injury. MEDICATIONS: Her home medications are reviewed include Xanax, Tenormin, Prozac, Isradipine, Toradol, lisinopril, Compazine, Lamictal and oxycodone. ALLERGIES: Allergies to SULFA. REVIEW OF SYSTEMS: No fever, chills, or rigors. No cough or expectoration. No nausea, vomiting or diarrhea. No hematuria or dysuria. No strokes, but she has had recurrent seizures. PAST MEDICAL HISTORY: Past medical history of fibromyalgia, migraines, chronic back pain. PAST SURGICAL HISTORY: Cholecystectomy. SOCIAL HISTORY: She is a current everyday smoker and no alcohol use reported. PHYSICAL EXAMINATION: On examination, her blood pressure was 109/73 mmHg, pulse rate in the 70s. Head and neck examination is normal. Heart sounds S1, S2 normal. No murmurs, no gallops, no rub. Extremities are warm. No edema. Abdomen is soft, nontender. Breath sounds are clear. No rhonchi. No crackles. IMPRESSION: 1. Minimally abnormal troponins with associated high CPKs consistent with skeletal muscle injury. 2. History of hypertension. 3. History of seizure disorder. Patient admitted with mental status changes. EKG is normal. The 2-D echo was reviewed and shows preserved LV size and systolic function. SUGGEST: 1. From a cardiac standpoint, no further workup is indicated. 2. Antihypertensives can be restarted if her blood pressure is consistently above 135/85 mmHg. At this time, I would hold ALEC inhibitors. Hydration would be appropriate to avoid any kidney injury. 3. Please call us as needed. MMODL / IJN: [id number] /
[2017-12-10 11:54] LABS: Glucose,Whole Blood 112 mg/dL (75-99)
[2017-12-10 17:08] LABS: Glucose,Whole Blood 95 mg/dL (75-99)
[2017-12-10] MEDS: ONDANSETRON 4 MG/2 ML VIAL IVP PRN (17:45)
[2017-12-10] MEDS: ALPRAZolam 1 MG TAB PO PRN (21:04)
[2017-12-10] MEDS: amLODIPine 10 MG TAB PO SCH (21:04)
[2017-12-10 21:09] LABS: Glucose,Whole Blood 115 mg/dL (75-99)
[2017-12-11] MEDS: ACETAMINOPHEN TAB 325 MG TAB PO PRN ×2 (03:54→20:08)
[2017-12-11] MEDS: SODIUM CHLORIDE 0.9% 1,000 ML IV SCH ×3 (06:26→20:01)
[2017-12-11 06:36] LABS: Glucose,Whole Blood 90 mg/dL (75-99)
[2017-12-11 07:13] LABS: Basophils # (A) 0.1 k/uL (0-0.2); Basophils % (A) 1 %; Eosinophils # (A) 0.2 k/uL (0-0.7); Eosinophils % (A) 2 %; HGB 10.3 gm/dL (11.4-16.0); Lymphocytes % (A) 20 %; MCH 29.2 pg (25.0-35.0); MCHC 32.2 g/dL (31.0-37.0); MCV 90.7 fL (80.0-100.0); Mean Platelet Volume 6.5; Monocytes # (A) 1.1 k/uL (0-1.0); Monocytes % (A) 10 %; Neutrophils # (A) 6.6 k/uL (1.3-7.7); Neutrophils % (A) 65 %; Platelet Count 330 k/uL (150-450); RBC 3.52 m/uL (3.80-5.40); RDW 15.3 % (11.5-15.5); WBC 10.2 k/uL (3.8-10.6)
[2017-12-11 07:23] LABS: Calcium 8.4 mg/dL (8.4-10.2); Potassium 4.3 mmol/L (3.5-5.1)
[2017-12-11] MEDS: cefTRIAXone IN SWFI 1,000 MG/10 ML SYRINGE IVP SCH (08:38)
[2017-12-11] MEDS: FLUoxetine HCL 20 MG CAP PO SCH (08:38)
[2017-12-11] MEDS: AZITHROMYCIN 500 MG TAB PO SCH (08:38)
[2017-12-11] MEDS: ASPIRIN 325 MG TAB PO SCH (08:38)
[2017-12-11] MEDS: ATENOLOL 50 MG TAB PO SCH (08:38)
[2017-12-11] MEDS: lamoTRIgine 100 MG TAB PO SCH ×2 (08:39→18:06)
[2017-12-11] MEDS: SODIUM CHLORIDE TAB 1 GM TAB PO SCH ×3 (08:39→20:08)
[2017-12-11] MEDS ORDERED: MORPHINE SULFATE 2 MG/ML SYRINGE IVP STA (10:41)
[2017-12-11 11:16] LABS: Glucose,Whole Blood 100 mg/dL (75-99)
--- NOTE | 2017-12-11 11:56 | P.PN ---
Subjective Progress Note Date: 12/11/17 Principal diagnosis: Weakness and falls Feeling well, still having headaches. Objective - Vital Signs Vital signs: Vital Signs Temp 97.1 F L 12/11/17 11:21 Pulse 80 12/11/17 11:21 Resp 16 12/11/17 11:21 BP 166/86 12/11/17 11:21 Pulse Ox 92 L 12/11/17 11:21 Intake & Output 12/10/17 12/11/17 12/11/17 18:59 06:59 18:59 Intake Total 1080 2400 240 Output Total 1999 3300 Balance -920 -900 240 Weight 88 kg 88 kg Intake: IV 2400 Sodium Chloride 0.9% 1, 2400 000 ml @ 150 mls/hr IV . Q6H40M [facility] Rx#:[id number] Oral 1080 240 Output: Urine 1999 3300 Other: Voiding Method Indwelling Catheter Indwelling Catheter - Exam Constitutional: No acute distress, conversant, pleasant Eyes:Anicteric sclerae, moist conjunctiva, no lid-lag, PERRLA, ENMT: Dry mucous membranes, Oropharynx clear, no erythema, exudates Neck: Supple, FROM, no masses, or JVD, No carotid bruits, No thyromegaly Lungs: Clear to auscultation, Clear to percussion, Normal respiratory effort, no accessory muscle use Cardiovascular: Heart regular in rate and rhythm, No murmurs, gallops, or rubs, No peripheral edema Abdominal: Soft, Nontender, no guarding, rebound or rigidity, Normoactive bowel sounds, No hepatomegaly, No splenomegaly, No palpable mass Skin: Normal temperature, tone, texture, turgor, no induration, No subcutaneous nodules, No rash, lesions, No ulcers Extremities: Left leg weakness secondary to pain, No digital cyanosis, No clubbing, Pedal pulses intact and symmetrical, Radial pulses intact and symmetrical, No calf tenderness Psychiatric: Alert and oriented to person, place and time, appropriate affect, intact judgement Neuro: Gen. weakness, no focal sensory deficits - Labs CBC & Chem 7: 12/11/17 06:23 12/11/17 06:23 Labs: Abnormal Lab Results - Last 24 Hours (Table) 12/10/17 12/10/17 12/11/17 Range/Units 11:30 21:08 06:23 RBC 3.52 L (3.80-5.40) m/uL Hgb 10.3 L (11.4-16.0) gm/dL Hct 32.0 L (34.0-46.0) % Monocytes # 1.1 H (0-1.0) k/uL Chloride (98-107) mmol/L Creatinine (0.52-1.04) mg/dL POC Glucose (mg/dL) 112 H 115 H (75-99) mg/dL 12/11/17 12/11/17 Range/Units 06:23 11:10 RBC (3.80-5.40) m/uL Hgb (11.4-16.0) gm/dL Hct (34.0-46.0) % Monocytes # (0-1.0) k/uL Chloride 109 H (98-107) mmol/L Creatinine 1.35 H (0.52-1.04) mg/dL POC Glucose (mg/dL) 100 H (75-99) mg/dL Microbiology - Last 24 Hours (Table) 12/09/17 17:50 Blood Culture - Preliminary Blood No Growth after 24 hours Assessment and Plan Plan: Acute rhabdomyolysis: Labs reviewed Likely secondary to multiple falls Continue IV fluids Elevated troponins: Likely secondary to above No chest pain or shortness of breath Echo checked, within normal limits, cardiology consulted, no further workup indicated. Acute renal failure with hyperkalemia: Improving IV fluids as above Avoid nephrotoxic medications Recheck creatinine in the morning Recently diagnosed brain lesions/seizure: Outpatient follow up with MRI Migraines, fibromyalgia, essential hypertension, chronic back pain, chronic neck pain: Hold lisinopril secondary to renal failure Resume rest of home medications. DVT prophylaxis SCDs General weakness PT and OT Anticipated discharge: 1 day Disposition: sub acute rehab
--- NOTE | 2017-12-11 13:00 | CDI ---
Last Revision, May 2017 Documentation Clarification Form Date: 12/11/2017 12:19:00 PM From: Darcie Blank RN, CCDS Admit Date: 12/09/2017 2:03:00 PM Patient Name: Adwoa Schmidt Visit Number: [id number] ATTENTION: The Clinical Documentation Specialists (CDI) and [facility] Coding Staff appreciate your assistance in clarifying documentation. Please respond to the clarification below the line at the bottom and electronically sign. The CDI & [facility] Coding staff will review the response and follow-up if needed. Please note: Queries are made part of the Legal Health Record. If you have any questions, please contact the author of this message via ITS. Dr. Nalini Monzon Altered mental status was documented in the Patient history/risk factors: Fibromyalgia, HTN, Migraines, Brain lesions Clinical Indicators: 12/09 H&P: "presented to the emergency department because of general weakness, confusion, lethargy, memory difficulties and multiple falls." 12/09 EC HPI: "some progressive confusion and lethargy." 12/10 Card: "Patient admitted with mental status changes." Labs: WBC 18.6/12.7/10.2, Hgb 11.3/10.4/10.3, BUN 18/23/14, Creatinine 2.11/1.92 /1.35. AST 362/184, ALT 209/151, Total CK 6470, CKMB: 22.1, + Benzo's and Oxycodone CXR: diminished inspiration w new r patchy r basilar infiltrate CT Brain: negative Treatment: Iv Zithromax, IV Rocephin, ivf bolus 1.56 followed by 150 cc/hr In your professional opinion, please clarify the etiology of the altered mental status, if known. Encephalopathy (specify Type- Toxic, Metabolic, and Underlying Medical Illness) Dementia (if know, specify Type and if with/without Behavioral Disturbance) Other condition (please specify) Unable to determine Please continue to document in your progress notes and discharge summary in order to capture severity of illness and risk of mortality. Include clinical findings that support your diagnosis. Encephalopathy Toxic, Metabolic MTDD
[2017-12-11 16:34] LABS: Glucose,Whole Blood 93 mg/dL (75-99)
[2017-12-11] MEDS: ONDANSETRON 4 MG/2 ML VIAL IVP PRN (18:12)
[2017-12-11] MEDS: ALPRAZolam 1 MG TAB PO PRN (20:08)
[2017-12-11] MEDS: amLODIPine 10 MG TAB PO SCH (20:08)
[2017-12-11 20:46] LABS: Glucose,Whole Blood 89 mg/dL (75-99)
[2017-12-12] MEDS: SODIUM CHLORIDE 0.9% 1,000 ML IV SCH ×2 (02:09→09:49)
[2017-12-12] MEDS: ACETAMINOPHEN TAB 325 MG TAB PO PRN (03:29)
[2017-12-12] MEDS ORDERED: KETOROLAC 30 MG/ML 1 ML VIAL IVP STA (04:10)
[2017-12-12] MEDS: ONDANSETRON 4 MG/2 ML VIAL IVP PRN (05:56)
[2017-12-12] MEDS: ALPRAZolam 1 MG TAB PO PRN (05:56)
[2017-12-12 06:06] LABS: Glucose,Whole Blood 82 mg/dL (75-99)
[2017-12-12 06:51] LABS: HCT 32.1 % (34.0-46.0); HGB 10.6 gm/dL (11.4-16.0); MCH 29.5 pg (25.0-35.0); MCHC 32.9 g/dL (31.0-37.0); MCV 89.6 fL (80.0-100.0); Mean Platelet Volume 6.3; Platelet Count 346 k/uL (150-450); RBC 3.58 m/uL (3.80-5.40); RDW 14.9 % (11.5-15.5); WBC 14.2 k/uL (3.8-10.6)
[2017-12-12 07:06] LABS: Calcium 8.7 mg/dL (8.4-10.2); Magnesium 1.8 mg/dL (1.6-2.3); Phosphorus 3.7 mg/dL (2.5-4.5); Potassium 4.2 mmol/L (3.5-5.1)
[2017-12-12] MEDS: ASPIRIN 325 MG TAB PO SCH (09:46)
[2017-12-12] MEDS: ATENOLOL 50 MG TAB PO SCH (09:46)
[2017-12-12] MEDS: AZITHROMYCIN 500 MG TAB PO SCH (09:47)
[2017-12-12] MEDS: lamoTRIgine 100 MG TAB PO SCH (09:47)
[2017-12-12] MEDS: FLUoxetine HCL 20 MG CAP PO SCH (09:47)
[2017-12-12] MEDS: cefTRIAXone IN SWFI 1,000 MG/10 ML SYRINGE IVP SCH (09:49)
[2017-12-12] MEDS ORDERED: LISINOPRIL 20 MG TAB PO SCH (11:15)
[2017-12-12 11:30] VITALS: RESP 16; TEMP 98.2
[2017-12-12 11:32] VITALS: BP 144/78; PULSE 90
[2017-12-12] MEDS: SODIUM CHLORIDE TAB 1 GM TAB PO SCH (11:47)
[2017-12-12 12:05] LABS: Glucose,Whole Blood 109 mg/dL (75-99)
--- NOTE | 2017-12-12 13:11 | P.DS ---
Providers Date of admission: 12/09/17 14:03 Expected date of discharge: 12/12/17 Attending physician: Nalini Monzon MD Consults: 12/10/17 08:44 Consult Physician Routine Consulting Provider: Kike Whatley Consult Reason/Comments: high trops Do you want consulting provider notified?: Yes Primary care physician: Beatriz Hudson MD Hospital Course: 52-year-old female who was recently admitted at [facility] in [place] for evaluation of new onset seizures and was found to have some brain lesions, was told to follow up with a brain MRI in 6 weeks presented to the emergency department because of general weakness, confusion, lethargy, memory difficulties and multiple falls. Before discharge from she was told that she needed rehabilitation but she declined and wanted to go home. She fell first in the kitchen 4 days ago, after that she crawled to the bedroom to wake up her as she could not get up. She attributed the falls due to general weakness. She denied focal weakness or numbness. No slurred speech, has chronic blurred vision. She chronically has migraine with a flareup every month on average and currently she has slightly worse headache than baseline. She has associated nausea with that but no vomiting. No chest pain or shortness of breath. No cough. No fevers or chills. After she was discharged from she did not have any further seizures. stated that patient could not move any of her legs when EMS came to the house. In route she became unresponsive briefly and started having sonorous respirations according to the EMS report. According to the ER physician's documentation and upon arrival to the ER she did have a second episode of unresponsiveness which lasted perhaps 30 seconds. In the emergency department she was fully examined and evaluated. Laboratory testing revealed leukocytosis with white count of 18,000, total CK of 6800 indicating rhabdomyolysis. She was also found to have hyperkalemia 5.6 acute renal failure with creatinine of 2.1, baseline normal. Her troponin was also slightly elevated at 0.44, it was cycled and it remained the same. EKG did not show any acute changes. Head CT scan was negative for acute intracranial process. X-ray of the right hip, right femur and right knee as well as the right ankle were all within normal limits. Chest x-ray showed right lower lobe infiltrates. Patient was diagnosed with acute renal failure likely secondary to rhabdomyolysis secondary to the frequent falls. She was started on IV fluid hydration, normal saline at 150 mL per hour. Over the next several days she symptomatically felt better. She was evaluated by physical and occupational therapy for the general weakness and was advised to go to rehab. She was reluctant to go initially but later she agreed to it. Today her creatinine normalized, the hyperkalemia was resolved. Throughout the hospitalization she continued to have her regular migraine headaches and was treated with morphine at one point for that. Note patient was recently admitted to [facility] because of multiple brain nodules, she was worked up with MRI of the brain and was eventually told to follow-up with another MRI in December. Patient is aware of that appointment. She' ll be discharged to the longterm in stable condition for further rehabilitation. Discharge diagnoses: Acute metabolic/toxic encephalopathy Rhabdomyolysis Frequent falls Acute renal failure, resolved Migraine headaches Essential hypertension Multiple brain nodules Patient Condition at Discharge: Stable Plan - Discharge Summary Discharge Rx Participant: No New Discharge Prescriptions: New Levofloxacin [Levaquin] 750 mg PO DAILY 3 Days #4 tab Continue Prochlorperazine [Compazine] 10 mg PO Q6H PRN PRN Reason: Nausea lamoTRIgine [LaMICtal] 100 mg PO BID@, Ketorolac [Toradol] 10 mg PO Q6H PRN PRN Reason: Pain FLUoxetine HCL [PROzac] 60 mg PO DAILY oxyCODONE HCL 20 mg PO Q6H Sodium Chloride Tab 1 gm PO TID ALPRAZolam [Xanax] 1 mg PO TID PRN PRN Reason: Anxiety Lisinopril 40 mg PO DAILY Isradipine 10 mg PO BID Atenolol [Tenormin] 50 mg PO DAILY Discharge Medication List ALPRAZolam [Xanax] 1 mg PO TID PRN 12/09/17 [History] Atenolol [Tenormin] 50 mg PO DAILY 12/09/17 [History] FLUoxetine HCL [PROzac] 60 mg PO DAILY 12/09/17 [History] Isradipine 10 mg PO BID 12/09/17 [History] Ketorolac [Toradol] 10 mg PO Q6H PRN 12/09/17 [History] Lisinopril 40 mg PO DAILY 12/09/17 [History] Prochlorperazine [Compazine] 10 mg PO Q6H PRN 12/09/17 [History] Sodium Chloride Tab 1 gm PO TID 12/09/17 [History] lamoTRIgine [LaMICtal] 100 mg PO BID@,17 12/09/17 [History] oxyCODONE HCL 20 mg PO Q6H 12/09/17 [History] Levofloxacin [Levaquin] 750 mg PO DAILY 3 Days #4 tab 12/12/17 [Rx] Follow up Appointment(s)/Referral(s): Beatriz Hudson MD [Primary Care Provider] - 1-2 days Activity/Diet/Wound Care/Special Instructions: Plan for ECF on D/C.
== END 2017-12-12 14:53 | DRG 557 ==
LOC: EC 10:20 → 6SEL 14:03
PROVIDERS: ADMIT Internal Medicine; ATTEND Internal Medicine
DX: M62.82 Rhabdomyolysis (principal); G92 Toxic encephalopathy; J18.9 Pneumonia, unspecified organism; N17.9 Acute kidney failure, unspecified; G40.909 Epilepsy, unspecified, not intractable, without status epilepticus; E87.5 Hyperkalemia; E86.0 Dehydration; G43.909 Migraine, unspecified, not intractable, without status migrainosus; I10 Essential (primary) hypertension; G93.9 Disorder of brain, unspecified; R29.6 Repeated falls; F41.9 Anxiety disorder, unspecified; F31.9 Bipolar disorder, unspecified; M79.7 Fibromyalgia; G89.29 Other chronic pain; M54.2 Cervicalgia; M54.9 Dorsalgia, unspecified; H91.90 Unspecified hearing loss, unspecified ear; Z79.891 Long term (current) use of opiate analgesic; Z79.899 Other long term (current) drug therapy; Z87.891 Personal history of nicotine dependence; Z90.49 Acquired absence of other specified parts of digestive tract; Z88.2 Allergy status to sulfonamides; W19.XXXA Unspecified fall, initial encounter; Y92.000 Kitchen of unspecified non-institutional (private) residence as the place of occurrence of the external cause; Z82.5 Family history of asthma and other chronic lower respiratory diseases; Z81.2 Family history of tobacco abuse and dependence; Z81.1 Family history of alcohol abuse and dependence
CPT/HCPCS: 36415; 51702; 70450; 71045; 72100; 72125; 73502; 80048; 80053; 80061; 80306; 81001; 82140; 82550; 82553; 83735; 84100; 84145; 84484; 85025; 85027; 85610; 85730; 87040; 93005; 93306; 94760; 96361; 96374; 99291

== ENCOUNTER → 2019-03-04 | Outpatient (CLI) | payer MEDICARE ==
--- NOTE | 2019-03-04 09:41 | FL ---
EXAMINATION TYPE: FL barium swallow DATE OF EXAM: 03/04/2019 COMPARISON: None HISTORY: Pain with swallowing TECHNIQUE: A double air contrast esophagram study is performed. FINDINGS: Esophagus dilates to normal caliber and has a normal contour to the gastroesophageal junction. Gastro esophageal junction opens to normal caliber. The suspicious filling defect is not identified within t he hypopharynx or within the esophagus. No extraluminal defects are evident. Multiple tertiary contractions were evident within the esophagus. There is incomplete stripping of th e esophageal bolus in the horizontal drinking position. Fluoroscopy time: 1 minute 28 seconds. Images: 19 IMPRESSIONS: 1. Presbyesophagus with incomplete stripping of the esophageal bolus in the horizontal drinking posit ion. 2. No suspicious filling defects identified. Correlate with the duct visualization findings.
--- NOTE | 2019-03-04 17:22 | CT ---
EXAMINATION TYPE: CT soft tissue neck w con DATE OF EXAM: 03/04/2019 COMPARISON: 12/09/2017 CT cervical spine HISTORY: Dysphagia, Rt base tongue mass CT DLP: 283.8 mGycm CONTRAST: Patient injected with 100 mL of Isovue 300. TECHNIQUE: Axial images at 3 mm thick sections. Reconstructed images in the coronal plane and sagitt al plane are reviewed. FINDINGS: Limited CT sections are obtained the lung apices. The lung apices appear clear. CT neck: The torus tubarius and fossa of Rosenmuller are normal. Final Rail Cutter spaces are normal. Para nasal sinuses and mastoid air cells are clear. Parotid glands appear normal and symmetrical. Submandibular glands, are normal. Parapharyngeal spac es are normal. No suspicious adenopathy is evident. There is some nodularity along the posterior tongue above the vallecula best visualized in the sagitt al plane. No suspicious underlying mass is evident in the axial plane. Direct visualization may yomi r evaluate the extent. No suspicious adenopathy is evident. Vocal cord level appear symmetrical. Thyroid as visualized is normal. Anterior cervical fusion is evident. Anterior cervical spine spurring is noted at C2-3 and C4. IMPRESSIONS: 1. Very subtle changes are at the tongue base essentially midline on the reconstructed images. Underl soumya deeper mass is not identified. Neoplasm is not excluded 2. Post anterior cervical fusion changes evident
== END | disposition home or self-care (01) ==
LOC: RADCTMAIN 06:44
PROVIDERS: ATTEND Otolaryngology
DX: R13.10 Dysphagia, unspecified (principal); R07.0 Pain in throat; K22.8 Other specified diseases of esophagus
CPT/HCPCS: 74220; 70491; Q9967

== ENCOUNTER → 2019-03-04 | Outpatient (CLI) | payer MEDICARE | END | disposition home or self-care (01) | LOC: LABWHC1 09:16 | PROVIDERS: ATTEND Otolaryngology | DX: J30.89 Other allergic rhinitis (principal) | CPT/HCPCS: 36415 ==

== ENCOUNTER 2019-04-10 10:55 | Day surgery (SDC) | payer MEDICARE ==
[2019-04-08 10:51] VITALS: BMI 27.3
[~2019-04-10 10:55] MED LIST: LACTATED RINGERS 1,000 ML IV SCH; LIDOCAINE 1% 20 ML VIAL (10MG/ML) FOR IV START INTRADERMA PRN
[2019-04-10 11:17] VITALS: TEMP 97.4
[2019-04-10] MEDS ORDERED: LIDOCAINE 1% INJ 10MG/ML (20 ML MDV) ONE (12:42)
[2019-04-10] MEDS ORDERED: PROPOFOL 10 MG/ML 20 ML VIAL IV ONE (12:42)
--- NOTE | 2019-04-10 12:55 | P.PCN ---
Date of Procedure: 04/10/19 Procedure(s) Performed: BRIEF HISTORY: Patient is a 53-year-old, pleasant, white female, scheduled for an upper endoscopy as a part of evaluation of recent dysphagia to solids for the last 6 months duration.. She is hence scheduled for an upper endoscopy with possible dilation today. PROCEDURE PERFORMED: Esophagogastroduodenoscopy with biopsy. PREOPERATIVE DIAGNOSIS: Intermittent dysphagia to solids of 6 months duration. IV sedation per anesthesia. PROCEDURE: After informed consent was obtained, the patient was brought into the endoscopy unit. IV sedation was administered by Anesthesia under continuous monitoring. Initially the Olympus GIF-140 video endoscope was inserted into the mouth. Esophagus intubated without any difficulty. It was gradually advanced into the stomach and duodenum and carefully examined. The bulb and the second part of the duodenum appeared normal. The scope at this time was withdrawn to the stomach, adequately insufflated with air, and upon careful examination, mucosa of the antrum, and mild gastritis and biopsies were done from this area. The body, cardia and the fundus appeared normal. The scope was then withdrawn into the esophagus. The GE junction was located at 39 cm from the incisors. The esophagus appeared normal. There were no erosions or ulcerations seen. There was no esophageal stricture identified. Multiple biopsies were done from the mid and distal esophagus to rule out eosinophilic esophagitis and the patient tolerated the procedure well. IMPRESSION: 1. Normal-appearing esophagus with no evidence of esophagitis or esophageal stricture 2. Small sliding type hiatal hernia 3. Mild antral gastritis. RECOMMENDATIONS: The findings of this examination were discussed with the patient as well as a family. She was advised to follow with the biopsy results. Continue with Prilosec 20 mg daily and follow antireflux measures.
[2019-04-10 13:29] VITALS: BP 106/72; PULSE 77; RESP 18
== END 2019-04-10 13:20 | disposition home or self-care (01) ==
LOC: ORWHC2ENDO 10:55
PROVIDERS: ATTEND Internal Medicine Gastroenterology
DX: K21.0 Gastro-esophageal reflux disease with esophagitis (principal); K31.9 Disease of stomach and duodenum, unspecified; K29.70 Gastritis, unspecified, without bleeding; K44.9 Diaphragmatic hernia without obstruction or gangrene; I10 Essential (primary) hypertension; G43.909 Migraine, unspecified, not intractable, without status migrainosus; M79.7 Fibromyalgia; F39 Unspecified mood [affective] disorder; Z88.2 Allergy status to sulfonamides; Z87.891 Personal history of nicotine dependence; Z98.1 Arthrodesis status; Z79.899 Other long term (current) drug therapy; Z79.891 Long term (current) use of opiate analgesic
CPT/HCPCS: 88305; 43239; J2001; J2704

== ENCOUNTER → 2021-05-24 | Outpatient (CLI) | payer MEDICARE | END | disposition home or self-care (01) | LOC: LABWHC1 15:10 | PROVIDERS: ATTEND Family Medicine | DX: G40.909 Epilepsy, unspecified, not intractable, without status epilepticus (principal) | CPT/HCPCS: 36415; 80175 ==

== ENCOUNTER → 2022-09-14 | Outpatient (CLI) | payer MEDICARE ==
[2022-09-14 17:13] LABS: Basophils # (A) 0.06 X 10*3/uL (0.00-0.10); Basophils % (A) 0.8 %; Eosinophils # (A) 0.59 X 10*3/uL (0.04-0.35); Eosinophils % (A) 7.7 %; HCT 38.6 % (37.2-46.3); HGB 12.1 g/dL (12.0-15.0); Immature Grans, Automated 0.5 %; Lymphocytes # (A) 1.26 X 10*3/uL (0.90-5.00); Lymphocytes % (A) 16.4 %; MCH 28.2 pg (27.0-32.0); MCHC 31.3 g/dL (32.0-37.0); Mean Platelet Volume 11.7 fL (9.5-12.2); Monocytes # (A) 0.48 X 10*3/uL (0.20-1.00); Monocytes % (A) 6.3 %; NRBC Per 100 WBC 0 /100 WBCS (0.0-0.0); Neutrophils # (A) 5.24 X 10*3/uL (1.80-7.70); Neutrophils % (A) 68.3 %; Platelet Count 248 X 10*3/uL (140-440); RBC 4.29 X 10*6/uL (4.10-5.20); RDW 13.1 % (11.5-14.5); WBC 7.67 X 10*3/uL (4.50-10.00)
[2022-09-14 17:23] LABS: ALT 10 U/L (8-44); AST 21 U/L (13-35); African American GFR (CKD) 77.8 (60.0-200.0); Albumin 4.1 g/dL (3.8-4.9); Albumin/Globulin Ratio 1.56 (1.60-3.17); Alkaline Phosphatase 78 U/L (41-126); BUN/Creat Ratio 21.88 Ratio (12.00-20.00); Blood Urea Nitrogen 20.5 mg/dL (9.0-27.0); Calcium 9.6 mg/dL (8.7-10.3); Carbon Dioxide 22.4 mmol/L (20.0-27.5); Chloride 105 mmol/L (96-109); Chol/HDL Ratio 3.04 Ratio; Globulin 2.7 g/dL (1.6-3.3); Glucose 84 mg/dL (70-110); LDL Cholesterol,Calculated 113.4 mg/dL (0.0-131.0); Non-African American GFR(CKD) 67.1 (60.0-200.0); Sodium 138 mmol/L (135-145); Total Protein 6.8 g/dL (6.2-8.2)
== END | disposition home or self-care (01) ==
LOC: LABWHC1 08:45
PROVIDERS: ATTEND Family Medicine
DX: I10 Essential (primary) hypertension (principal)
CPT/HCPCS: 36415; 80053; 80061; 85025

== ENCOUNTER 2024-03-20 09:59 | Emergency (ER) | payer MEDICARE ==
[2024-03-20 10:07] VITALS: BP 150/100; PULSE 85; RESP 17; TEMP 98
[2024-03-20] MEDS: droPERidol 5 MG/2 ML VIAL IVP ONE ×2 (10:41→13:41)
[2024-03-20] MEDS: KETOROLAC 15 MG/ML 1 ML VIAL IVP STA ×2 (10:58→14:20)
[2024-03-20] MEDS: SODIUM CHLORIDE 0.9% 1,000 ML IV STA (10:58)
[2024-03-20 11:16] LABS: Basophils % (A) 0 %; Eosinophils # (A) 0.1 k/uL (0-0.7); Eosinophils % (A) 1 %; HCT 44.3 % (34.0-46.0); HGB 15.9 gm/dL (11.4-16.0); Lymphocytes # (A) 0.8 k/uL (1.0-4.8); Lymphocytes % (A) 5 %; MCH 30.7 pg (25.0-35.0); MCHC 35.9 g/dL (31.0-37.0); MCV 85.5 fL (80.0-100.0); Mean Platelet Volume 8.7; Monocytes # (A) 0.5 k/uL (0-1.0); Monocytes % (A) 4 %; Neutrophils # (A) 13.3 k/uL (1.3-7.7); Neutrophils % (A) 90 %; Platelet Count 196 k/uL (150-450); RBC 5.18 m/uL (3.80-5.40); RDW 12.5 % (11.5-15.5); WBC 14.7 k/uL (3.8-10.6)
[2024-03-20 11:22] LABS: ALT 15 U/L (4-34); AST 19 U/L (14-36); African American GFR (CKD) >90 (>60 ml/min/1.73 sqM); Albumin 4.5 g/dL (3.5-5.0); Alkaline Phosphatase 81 U/L (38-126); Amylase 67 U/L (30-110); Anion Gap 13 mmol/L; Blood Urea Nitrogen 9 mg/dL (7-17); Calcium 9.7 mg/dL (8.4-10.2); Carbon Dioxide 22 mmol/L (22-30); Chloride 100 mmol/L (98-107); Glucose 134 mg/dL (74-99); Lipase 66 U/L (23-300); Non-African American GFR(CKD) >90 (>60 ml/min/1.73 sqM); Potassium 3.5 mmol/L (3.5-5.1); Sodium 135 mmol/L (137-145)
[2024-03-20 12:02] LABS: Amorphous Sediment,Urine Few /hpf; Appearance,Urine Cloudy (Clear); Bilirubin,Urine Negative (Negative); Blood,Urine Negative (Negative); Color,Urine Yellow; Glucose,Urine (UA) Negative (Negative); Ketones,Urine 1+ (Negative); Leukocyte Esterase,Urine Trace (Negative); Mucus,Urine Occasional /hpf; Nitrite,Urine Negative (Negative); PH, Urine 8.5 (5.0-8.0); Protein,Urine 1+ (Negative); Specific Gravity,Urine 1.021 (1.001-1.035); Squamous Epithelial Cell,Urine 6 /hpf (0-4); Urobilinogen,Urine <2.0 mg/dL (<2.0); WBC,Urine 1 /hpf (0-5)
[2024-03-20] MEDS: diphenhydrAMINE 50 MG/ML 1 ML VIAL IVP STA ×2 (12:39→13:42)
[2024-03-20] MEDS: METOCLOPRAMIDE 5 MG/ML 2 ML VIAL IVP STA (12:40)
--- NOTE | 2024-03-20 12:45 | ED ---
General Adult HPI - General Chief complaint: Nausea/Vomiting/Diarrhea Stated complaint: Flu like symptoms Time Seen by Provider: 03/20/24 10:05 Source: patient, EMS, RN notes reviewed Mode of arrival: EMS Limitations: no limitations - History of Present Illness Initial comments: 58 year old female presents to ED with chief complaint of nausea and vomiting x 3 days. States that she has been unable to keep food down and minimal water. She also reports fever and diarrhea. Denies shortness of breath, and chest pain. Patient states this has been an ongoing thing over the last several years. Patient states she has diffuse pain but she does have fibromyalgia. Patient denies any chest pain shortness of breath no complaints of headache or dizziness. Patient states she just feels dehydrated. She is concerned about her sodium level. - Related Data Home Medications Medication Instructions Recorded Confirmed ALPRAZolam [Xanax] 1 mg PO BID PRN 12/09/17 04/10/19 FLUoxetine HCL [PROzac] 60 mg PO DAILY 12/09/17 04/10/19 Sodium Chloride Tab 1 gm PO DAILY 12/09/17 04/10/19 lamoTRIgine [LaMICtal] 150 mg PO BID 12/09/17 04/10/19 oxyCODONE HCL [oxyCODONE HCL (IR)] 20 mg PO Q6H PRN 12/09/17 04/10/19 ARIPiprazole [Abilify] 15 mg PO DAILY 04/08/19 04/10/19 Cyclobenzaprine [Flexeril] 10 mg PO HS 04/08/19 04/10/19 Docusate [Colace] 100 mg PO BID PRN 04/08/19 04/10/19 Fexofenadine HCl [Nicole Allergy] 180 mg PO DAILY 04/08/19 04/10/19 Fluticasone Nasal [place] [Flonase 2 spr EA NOSTRIL DAILY 04/08/19 04/10/19 Nasal [place]] Fremanezumab-Vfrm [Ajovy] 225 mg SQ QMONTH 04/08/19 04/10/19 Montelukast [Singulair] 10 mg PO HS 04/08/19 04/10/19 Omeprazole [PriLOSEC] 40 mg PO DAILY 04/08/19 04/10/19 atenoloL [Tenormin] 25 mg PO DAILY@1900 04/08/19 04/10/19 Previous Rx's Medication Instructions Recorded Metoclopramide [Reglan] 10 mg PO TID PRN #15 tab 03/20/24 Allergies Allergy/AdvReac Type Severity Reaction Status Date / Time Sulfa (Sulfonamide Allergy Rash/Hives Verified 03/20/24 10:06 Antibiotics) [place] Allergy Unknown THROAT Uncoded 03/20/24 10:06 SCRATCHY Review of Systems ROS Statement: Those systems with pertinent positive or pertinent negative responses have been documented in the HPI. ROS Other: All systems not noted in ROS Statement are negative. Past Medical History Past Medical History: Fibromyalgia, GERD/Reflux, Hypertension, Seizure Disorder Additional Past Medical History / Comment(s): migraines, States 9 seizures 1 year ago (2018)-states they thought it may have been caused by brain lesions and high bloodpressure., Seasonal Allergies, Hx pancreatitis (16 yrs old -states drank heavily), constipation., states having throat pain -some dysphagia., has TMJ., Hx of neck fusion with screws. History of Any Multi-Drug Resistant Organisms: None Reported Past Surgical History: Breast Surgery, Cholecystectomy Additional Past Surgical History / Comment(s): neck fusion and screws , cyst bilateral breast. Past Anesthesia/Blood Transfusion Reactions: No Reported Reaction Past Psychological History: Anxiety, Depression, PTSD Past Alcohol Use History: None Reported Past Drug Use History: None Reported - Past Family History Mother Family Medical History: COPD Father Family Medical History: Cancer Additional Family Medical History / Comment(s): smoker; etoh; from alcoholism General Exam Limitations: no limitations General appearance: alert, in no apparent distress Head exam: Present: atraumatic, normocephalic, normal inspection Eye exam: Present: normal appearance, PERRL, EOMI. Absent: scleral icterus, conjunctival injection, periorbital swelling ENT exam: Present: normal exam, mucous membranes moist Neck exam: Present: normal inspection. Absent: tenderness, meningismus, lymph adenopathy Respiratory exam: Present: normal lung sounds bilaterally. Absent: respiratory distress, wheezes, rales, rhonchi, stridor Cardiovascular Exam: Present: regular rate, normal rhythm, normal heart sounds. Absent: systolic murmur, diastolic murmur, rubs, gallop, clicks GI/Abdominal exam: Present: soft, normal bowel sounds. Absent: distended, tenderness, guarding, rebound, rigid Extremities exam: Present: normal inspection, full ROM, normal capillary refill. Absent: tenderness, pedal edema, joint swelling, calf tenderness Back exam: Present: normal inspection Neurological exam: Present: alert, oriented X3, CN II-XII intact Psychiatric exam: Present: normal affect, normal mood Skin exam: Present: warm, dry, intact, normal color. Absent: rash Course Vital Signs 03/20/24 10:01 Temperature 98.0 F Pulse Rate 85 Respiratory 17 Rate Blood Pressure 150/100 O2 Sat by Pulse 98 Oximetry EKG Findings - EKG Comments: EKG Findings:: EKG performed at 10: 33 sinus rhythm with a rate of 86 IA 173 QRS 89 QT/QTc 371/415 - EKG Results: EKG: interpreted by MATTHEW Medical Decision Making - Medical Decision Making Was pt. sent in by a medical professional or institution (, PA, CHEMICAL MANAGER, urgent care, hospital, or halfway...) When possible be specific @ -No Did you speak to anyone other than the patient for history (EMS, parent, family, police, friend...)? What history was obtained from this source @ -No Did you review nursing and triage notes (agree or disagree)? Why? @ -I reviewed and agree with nursing and triage notes Were old charts reviewed (outside hosp., previous admission, EMS record, old EKG, old radiological studies, urgent care reports/EKG's, halfway records)? Report findings @ -No old charts were reviewed Differential Diagnosis (chest pain, altered mental status, abdominal pain women, abdominal pain men, vaginal bleeding, weakness, fever, dyspnea, syncope, headache, dizziness, GI bleed, back pain, seizure, CVA, palpatations, mental hea lth, musculoskeletal)? @ -Differential Abdominal Pain Women: Appendicitis, Cholecystitis, diverticulosis, ischemic bowel, pancreatitis, hepatitis, UTI, gastroenteritis, AAA, incarcerated hernia, bowel obstruction, constipation, inflammatory bowel, hepatitis, peptic ulcer disease, splenic infarction, perforated viscus, vulvitis, ovarian torsion, PID, kidney stone, placenta abruption, this is not meant to be an all-inclusive list EKG interpreted by me (3pts min.). @ -As above X-rays interpreted by me (1pt min.). @ -None done CT interpreted by me (1pt min.). @ -None done U/S interpreted by me (1pt. min.). @ -None done What testing was considered but not performed or refused? (CT, X-rays, U/S, labs)? Why? @ -None What meds were considered but not given or refused? Why? @ -None Did you discuss the management of the patient with other professionals (professionals i.e. DrLitzy, PA, CHEMICAL MANAGER, lab, RT, psych nurse, geriatric social worker, corporation lawyer, teacher, corporate compliance officer, pillowcase folder)? Give summary @ -No Was smoking cessation discussed for >3mins.? @ -No Was critical care preformed (if so, how long)? @ -No Were there social determinants of health that impacted care today? How? (Homelessness, low income, unemployed, alcoholism, drug addiction, transportation, low edu. Level, literacy, decrease access to med. care, [facility], rehab)? @ -No Was there de-escalation of care discussed even if they declined (Discuss DNR or withdrawal of care, Hospice)? DNR status @ -No What co-morbidities impacted this encounter? (DM, HTN, Smoking, COPD, CAD, Cancer, CVA, ARF, Chemo, Hep., AIDS, mental health diagnosis, sleep apnea, morbid obesity)? @ -Marijuana use, fibromyalgia Was patient admitted / discharged? Hospital course, mention meds given and route, prescriptions, significant lab abnormalities, going to OR and other pertinent info. @ -[Discharge patient feels improved after antiemetics and analgesics. Patient' s laboratory studies reveal no significant malady patient tolerating oral intake will be discharged in stable condition. Undiagnosed new problem with uncertain prognosis? @ -No Drug Therapy requiring intensive monitoring for toxicity (Heparin, Nitro, Insulin, Cardizem)? @ -No Were any procedures done? @ -No Diagnosis/symptom? @ -Abdominal pain, nausea vomiting Acute, or Chronic, or Acute on Chronic? @ -Acute Uncomplicated (without systemic symptoms) or Complicated (systemic symptoms)? @ -Uncomplicated Side effects of treatment? @ -No Exacerbation, Progression, or Severe Exacerbation? @ -No Poses a threat to life or bodily function? How? (Chest pain, [place], [place], pneumonia, PE, COPD, DKA, ARF, appy, cholecystitis, CVA, Diverticulitis, Homicidal, Suicidal, threat to staff... and all critical care pts) @ -No - Lab Data Result diagrams: 03/20/24 10:17 03/20/24 10:17 Lab Results 03/20/24 03/20/24 03/20/24 Range/Units 10:17 10:17 10:17 WBC 14.7 H (3.8-10.6) k/uL RBC 5.18 (3.80-5.40) m/uL Hgb 15.9 (11.4-16.0) gm/dL Hct 44.3 (34.0-46.0) % MCV 85.5 (80.0-100.0) fL MCH 30.7 (25.0-35.0) pg MCHC 35.9 (31.0-37.0) g/dL RDW 12.5 (11.5-15.5) % Plt Count 196 (150-450) k/uL MPV 8.7 Neutrophils % 90 % Lymphocytes % 5 % Monocytes % 4 % Eosinophils % 1 % Basophils % 0 % Neutrophils # 13.3 H (1.3-7.7) k/uL Lymphocytes # 0.8 L (1.0-4.8) k/uL Monocytes # 0.5 (0-1.0) k/uL Eosinophils # 0.1 (0-0.7) k/uL Basophils # 0.0 (0-0.2) k/uL Sodium 135 L (137-145) mmol/L Potassium 3.5 (3.5-5.1) mmol/L Chloride 100 (98-107) mmol/L Carbon Dioxide 22 (22-30) mmol/L Anion Gap 13 mmol/L BUN 9 (7-17) mg/dL Creatinine 0.62 (0.52-1.04) mg/dL Est GFR (CKD-EPI)AfAm >90 (>60 ml/min/1.73 sqM) Est GFR (CKD-EPI)NonAf >90 (>60 ml/min/1.73 sqM) Glucose 134 H (74-99) mg/dL Calcium 9.7 (8.4-10.2) mg/dL Total Bilirubin 1.0 (0.2-1.3) mg/dL AST 19 (14-36) U/L ALT 15 (4-34) U/L Alkaline Phosphatase 81 (38-126) U/L Total Protein 7.0 (6.3-8.2) g/dL Albumin 4.5 (3.5-5.0) g/dL Amylase 67 (30-110) U/L Lipase 66 (23-300) U/L Urine Color Urine Appearance (Clear) Urine pH (5.0-8.0) Ur Specific [place] (1.001-1.035) Urine Protein (Negative) Urine Glucose (UA) (Negative) Urine Ketones (Negative) Urine Blood (Negative) Urine Nitrite (Negative) Urine Bilirubin (Negative) Urine Urobilinogen (<2.0) mg/dL Ur Leukocyte Esterase (Negative) Urine WBC (0-5) /hpf Ur Squamous Epith Cells (0-4) /hpf Amorphous Sediment (None) /hpf Urine Mucus (None) /hpf Influenza Type A (PCR) Not Detected (Not Detectd) Influenza Type B (PCR) Not Detected (Not Detectd) RSV (PCR) Not Detected (Not Detectd) SARS-CoV-2 (PCR) Not Detected (Not Detectd) 03/20/24 Range/Units 10:18 WBC (3.8-10.6) k/uL RBC (3.80-5.40) m/uL Hgb (11.4-16.0) gm/dL Hct (34.0-46.0) % MCV (80.0-100.0) fL MCH (25.0-35.0) pg MCHC (31.0-37.0) g/dL RDW (11.5-15.5) % Plt Count (150-450) k/uL MPV Neutrophils % % Lymphocytes % % Monocytes % % Eosinophils % % Basophils % % Neutrophils # (1.3-7.7) k/uL Lymphocytes # (1.0-4.8) k/uL Monocytes # (0-1.0) k/uL Eosinophils # (0-0.7) k/uL Basophils # (0-0.2) k/uL Sodium (137-145) mmol/L Potassium (3.5-5.1) mmol/L Chloride (98-107) mmol/L Carbon Dioxide (22-30) mmol/L Anion Gap mmol/L BUN (7-17) mg/dL Creatinine (0.52-1.04) mg/dL Est GFR (CKD-EPI)AfAm (>60 ml/min/1.73 sqM) Est GFR (CKD-EPI)NonAf (>60 ml/min/1.73 sqM) Glucose (74-99) mg/dL Calcium (8.4-10.2) mg/dL Total Bilirubin (0.2-1.3) mg/dL AST (14-36) U/L ALT (4-34) U/L Alkaline Phosphatase (38-126) U/L Total Protein (6.3-8.2) g/dL Albumin (3.5-5.0) g/dL Amylase (30-110) U/L Lipase (23-300) U/L Urine Color Yellow Urine Appearance Cloudy H (Clear) Urine pH 8.5 H (5.0-8.0) Ur Specific [place] 1.021 (1.001-1.035) Urine Protein 1+ H (Negative) Urine Glucose (UA) Negative (Negative) Urine Ketones 1+ H (Negative) Urine Blood Negative (Negative) Urine Nitrite Negative (Negative) Urine Bilirubin Negative (Negative) Urine Urobilinogen <2.0 (<2.0) mg/dL Ur Leukocyte Esterase Trace H (Negative) Urine WBC 1 (0-5) /hpf Ur Squamous Epith Cells 6 H (0-4) /hpf Amorphous Sediment Few H (None) /hpf Urine Mucus Occasional H (None) /hpf Influenza Type A (PCR) (Not Detectd) Influenza Type B (PCR) (Not Detectd) RSV (PCR) (Not Detectd) SARS-CoV-2 (PCR) (Not Detectd) Disposition Clinical Impression: Gastroenteritis Disposition: HOME SELF-CARE Instructions (If sedation given, give patient instructions): Acute Nausea and Vomiting (ED) Additional Instructions: Please return to the Emergency Department if symptoms worsen or any other concerns. Prescriptions: Metoclopramide [Reglan] 10 mg PO TID PRN #15 tab PRN Reason: Nausea Is patient prescribed a controlled substance at d/c from ED?: No Referrals: Les Kelsey MD [Primary Care Provider] - 1-2 days Time of Disposition: 13:57
[2024-03-20] MEDS: LORazepam 2 MG/ML INJ IV STA (14:20)
== END 2024-03-20 14:41 | disposition home or self-care (01) ==
LOC: EC 09:59
DX: J11.1 Influenza due to unidentified influenza virus with other respiratory manifestations
CPT/HCPCS: 36415; 80053; 81001; 82150; 83690; 85025; 87636; 93005; 96361; 96374; 96375; 96376; 99284

== ENCOUNTER 2024-09-07 17:43 | Inpatient (IN) | payer MEDICARE ==
--- NOTE | 2024-09-07 18:18 | ED ---
General Adult HPI - General Chief complaint: Psychiatric Symptoms Stated complaint: Petition Time Seen by Provider: 09/07/24 17:55 Source: patient, police, RN notes reviewed, old records reviewed Mode of arrival: ambulatory Limitations: no limitations - History of Present Illness Initial comments: This is a 58-year-old female who presents to the emergency department complaining that she is depressed. Patient states she has been unable to see her mother is a nurse come because she acted out once and they will not let her back end. Patient states she had a to her neck today and was going to cut her throat. Patient denies any drug use or alcohol use today. Patient denies any physical complaints today. Patient states she cannot continue to live like this and she wants to . - Related Data Home Medications Medication Instructions Recorded Confirmed ALPRAZolam [Xanax] 1 mg PO TID PRN 12/09/17 09/07/24 Montelukast [Singulair] 10 mg PO DAILY 04/08/19 09/07/24 atenoloL [Tenormin] 25 mg PO DAILY 04/08/19 09/07/24 Albuterol Inhaler [Ventolin Hfa 2 puff INHALATION RT-QID PRN 09/07/24 09/07/24 Inhaler] QUEtiapine [SEROquel] 100 mg PO DAILY 09/07/24 09/07/24 QUEtiapine [SEROquel] 400 mg PO HS 09/07/24 09/07/24 Rizatriptan Benzoate 10 mg PO DAILY PRN 09/07/24 09/07/24 Temazepam 30 mg PO HS PRN 09/07/24 09/07/24 oxyCODONE HCL [oxyCODONE HCL (IR)] 30 mg PO QID PRN 09/07/24 09/07/24 Allergies Allergy/AdvReac Type Severity Reaction Status Date / Time Sulfa (Sulfonamide Allergy Rash/Hives Verified 09/07/24 18:08 Antibiotics) [place] Allergy Unknown THROAT Uncoded 09/07/24 17:48 SCRATCHY Review of Systems ROS Statement: Those systems with pertinent positive or pertinent negative responses have been documented in the HPI. ROS Other: All systems not noted in ROS Statement are negative. Past Medical History Past Medical History: Fibromyalgia, GERD/Reflux, Hypertension, Seizure Disorder Additional Past Medical History / Comment(s): migraines, States 9 seizures 1 year ago (2018)-states they thought it may have been caused by brain lesions and high bloodpressure., Seasonal Allergies, Hx pancreatitis (16 yrs old -states drank heavily), constipation., states having throat pain -some dysphagia., has TMJ., Hx of neck fusion with screws. History of Any Multi-Drug Resistant Organisms: None Reported Past Surgical History: Breast Surgery, Cholecystectomy Additional Past Surgical History / Comment(s): neck fusion and screws , cyst bilateral breast. Past Anesthesia/Blood Transfusion Reactions: No Reported Reaction Past Psychological History: Anxiety, Depression, PTSD Smoking Status: Former smoker Past Alcohol Use History: None Reported Past Drug Use History: Marijuana - Past Family History Mother Family Medical History: COPD Father Family Medical History: Cancer Additional Family Medical History / Comment(s): smoker; etoh; from alcoholism General Exam - General Exam Comments Initial Comments: GENERAL: Patient is well-developed and well-nourished. Patient is nontoxic and well- hydrated and is in mild distress. ENT: Neck is soft and supple. No significant lymphadenopathy is noted. Oropharynx is clear. Moist mucous membranes. Neck has full range of motion without eliciting any pain. EYES: The sclera were anicteric and conjunctiva were pink and moist. Extraocular movements were intact and pupils were equal round and reactive to light. Eyelids were unremarkable. PULMONARY: Unlabored respirations. Good breath sounds bilaterally. No audible rales rhonchi or wheezing was noted. CARDIOVASCULAR: There is a regular rate and rhythm without any murmurs gallops or rubs. ABDOMEN: Soft and nontender with normal bowel sounds. SKIN: Skin is clear with no lesions or rashes and otherwise unremarkable. NEUROLOGIC: Patient is alert and oriented x3. Cranial nerves II through XII are grossly intact. Motor and sensory are also intact. Normal speech, volume and content. Symmetrical smile. MUSCULOSKELETAL: Normal extremities with adequate strength and full range of motion. LYMPHATICS: No significant lymphadenopathy is noted PSYCHIATRIC: Patient is very depressed and crying only when at the emergency department. Limitations: no limitations Course Vital Signs 09/07/24 09/07/24 17:45 18:52 Temperature 99 F 100.2 F H Pulse Rate 124 H 88 Respiratory 20 18 Rate Blood Pressure 169/117 166/110 O2 Sat by Pulse 99 Oximetry Medical Decision Making - Medical Decision Making Was pt. sent in by a medical professional or institution (, [facility], [facility], urgent care, hospital, or group home...) When possible be specific @ -No Did you speak to anyone other than the patient for history (EMS, parent, family, police, friend...)? What history was obtained from this source @ -No Did you review nursing and triage notes (agree or disagree)? Why? @ -I reviewed and agree with nursing and triage notes Were old charts reviewed (outside hosp., previous admission, EMS record, old EKG, old radiological studies, urgent care reports/EKG's, group home records)? Report findings @ -No old charts were reviewed Differential Diagnosis? @ -Differential Mental Health Depression, anxiety, bipolar, psychosis, schizophrenia, borderline personality, situational depression, adjustment disorder, behavioral disorder, brain tumor, malingering, substance abuse, encephalopathy, medication reaction, dementia, hypothyroidism, degenerative neurologic disorder, lupus.... This is not meant to be all-inclusive list differential Abdominal Pain Men: Appendicitis, cholecystitis, diverticulosis, ischemic bowel, pancreatitis, hepatitis, UTI, gastroenteritis, AAA, incarcerated hernia, bowel obstruction, constipation, inflammatory bowel, hepatitis, peptic ulcer disease, splenic infarction, perforated viscus, testicular torsion, this is not meant to be an all-inclusive list EKG interpreted by me (3pts min.). @ -As above X-rays interpreted by me (1pt min.). @ -None done CT interpreted by me (1pt min.). @ -None done U/S interpreted by me (1pt. min.). @ -None done What testing was considered but not performed or refused? (CT, X-rays, U/S, labs)? Why? @ -None What meds were considered but not given or refused? Why? @ -None Did you discuss the management of the patient with other professionals (professionals i.e. , [facility], [facility], lab, RT, psych nurse, social services designee, prepress supervisor, teacher, client sales and service officer, residential case manager)? Give summary @ -I spoke with Dr. Barton and he agreed to admit the patient admit the patient I wrote admitting orders Was smoking cessation discussed for >3mins.? @ -No Was critical care preformed (if so, how long)? @ -35 minutes Were there social determinants of health that impacted care today? How? (Homelessness, low income, unemployed, alcoholism, drug addiction, transportation, low edu. Level, literacy, decrease access to med. care, longterm, rehab)? @ -No Was there de-escalation of care discussed even if they declined (Discuss DNR or withdrawal of care, Hospice)? DNR status @ -No What co-morbidities impacted this encounter? (DM, HTN, Smoking, COPD, CAD, Cancer, CVA, ARF, Chemo, Hep., AIDS, mental health diagnosis, sleep apnea, mo rbid obesity)? @ -None Was patient admitted / discharged? Hospital course, mention meds given and ro jaiden, prescriptions, significant lab abnormalities, going to OR and other pertinent info. @ -Patient was given Reglan and continue to vomit patient was given Zofran. Patient was given IV fluids she also had an elevated white count and a fever so I kept the patient as a medical admit to Dr. Klesey and had a psych consult Undiagnosed new problem with uncertain prognosis? @ -No Drug Therapy requiring intensive monitoring for toxicity (Heparin, Nitro, Insulin, Cardizem)? @ -No Were any procedures done? @ -No Diagnosis/symptom? @ -Suicidal ideations Acute, or Chronic, or Acute on Chronic? @ -Acute Uncomplicated (without systemic symptoms) or Complicated (systemic symptoms)? @ -Complicated Side effects of treatment? @ -No Exacerbation, Progression, or Severe Exacerbation? @ -No Poses a threat to life or bodily function? How? (Chest pain, [place], [place], pneumonia, PE, COPD, DKA, ARF, appy, cholecystitis, CVA, Diverticulitis, Homicidal, Suicidal, threat to staff... and all critical care pts) @ -Yes this could lead to an attempt and Diagnosis/symptom? @ -Acute vomiting Acute, or Chronic, or Acute on Chronic? @ -Acute Uncomplicated (without systemic symptoms) or Complicated (systemic symptoms)? @ -Uncomplicated Side effects of treatment? @ -None Exacerbation, Progression, or Severe Exacerbation] @ -No Poses a threat to life or bodily function? @ -No - Lab Data Result diagrams: 09/07/24 18:29 09/07/24 18:29 Lab Results 09/07/24 09/07/24 09/07/24 Range/Units 18:15 18:15 18:29 WBC 20.3 H (3.8-10.6) k/uL RBC 5.57 H (3.80-5.40) m/uL Hgb 16.0 (11.4-16.0) gm/dL Hct 48.7 H (34.0-46.0) % MCV 87.4 (80.0-100.0) fL MCH 28.8 (25.0-35.0) pg MCHC 32.9 (31.0-37.0) g/dL RDW 12.4 (11.5-15.5) % Plt Count 457 H (150-450) k/uL MPV 7.5 Neutrophils % 88 % Lymphocytes % 8 % Monocytes % 4 % Eosinophils % 0 % Basophils % 0 % Neutrophils # 17.8 H (1.3-7.7) k/uL Lymphocytes # 1.6 (1.0-4.8) k/uL Monocytes # 0.7 (0-1.0) k/uL Eosinophils # 0.1 (0-0.7) k/uL Basophils # 0.0 (0-0.2) k/uL Sodium (137-145) mmol/L Potassium (3.5-5.1) mmol/L Chloride (98-107) mmol/L Carbon Dioxide (22-30) mmol/L Anion Gap mmol/L BUN (7-17) mg/dL Creatinine (0.52-1.04) mg/dL Est GFR (CKD-EPI)AfAm (>60 ml/min/1.73 sqM) Est GFR (CKD-EPI)NonAf (>60 ml/min/1.73 sqM) Glucose (74-99) mg/dL Calcium (8.4-10.2) mg/dL Total Bilirubin (0.2-1.3) mg/dL AST (14-36) U/L ALT (4-34) U/L Alkaline Phosphatase (38-126) U/L Total Protein (6.3-8.2) g/dL Albumin (3.5-5.0) g/dL Urine Color Yellow Urine Appearance Turbid H (Clear) Urine pH 8.5 H (5.0-8.0) Ur Specific Hedrick 1.022 (1.001-1.035) Urine Protein 2+ H (Negative) Urine Glucose (UA) Negative (Negative) Urine Ketones Negative (Negative) Urine Blood Negative (Negative) Urine Nitrite Negative (Negative) Urine Bilirubin Negative (Negative) Urine Urobilinogen 2.0 (<2.0) mg/dL Ur Leukocyte Esterase Moderate H (Negative) Urine WBC 5 (0-5) /hpf Ur Squamous Epith Cells 25 H (0-4) /hpf Amorphous Sediment Few H (None) /hpf Urine Bacteria Occasional H (None) /hpf Urine Mucus Rare H (None) /hpf Urine Opiates Screen Not Detected (NotDetected) Ur Oxycodone Screen Detected H (NotDetected) Urine Methadone Screen Not Detected (NotDetected) Ur Barbiturates Screen Detected H (NotDetected) U Tricyclic Antidepress Detected H (NotDetected) Ur Phencyclidine Scrn Not Detected (NotDetected) Ur Amphetamines Screen Not Detected (NotDetected) U Methamphetamines Scrn Not Detected (NotDetected) U Benzodiazepines Scrn Detected H (NotDetected) Urine Cocaine Screen Not Detected (NotDetected) U Marijuana (THC) Screen Detected H (NotDetected) Influenza Type A (PCR) (Not Detectd) Influenza Type B (PCR) (Not Detectd) RSV (PCR) (Not Detectd) SARS-CoV-2 (PCR) (Not Detectd) 09/07/24 09/07/24 Range/Units 18:29 19:10 WBC (3.8-10.6) k/uL RBC (3.80-5.40) m/uL Hgb (11.4-16.0) gm/dL Hct (34.0-46.0) % MCV (80.0-100.0) fL MCH (25.0-35.0) pg MCHC (31.0-37.0) g/dL RDW (11.5-15.5) % Plt Count (150-450) k/uL MPV Neutrophils % % Lymphocytes % % Monocytes % % Eosinophils % % Basophils % % Neutrophils # (1.3-7.7) k/uL Lymphocytes # (1.0-4.8) k/uL Monocytes # (0-1.0) k/uL Eosinophils # (0-0.7) k/uL Basophils # (0-0.2) k/uL Sodium 137 (137-145) mmol/L Potassium 4.0 (3.5-5.1) mmol/L Chloride 92 L (98-107) mmol/L Carbon Dioxide 32 H (22-30) mmol/L Anion Gap 13 mmol/L BUN 12 (7-17) mg/dL Creatinine 0.90 (0.52-1.04) mg/dL Est GFR (CKD-EPI)AfAm 81 (>60 ml/min/1.73 sqM) Est GFR (CKD-EPI)NonAf 70 (>60 ml/min/1.73 sqM) Glucose 145 H (74-99) mg/dL Calcium 10.7 H (8.4-10.2) mg/dL Total Bilirubin 1.2 (0.2-1.3) mg/dL AST 23 (14-36) U/L ALT 21 (4-34) U/L Alkaline Phosphatase 110 (38-126) U/L Total Protein 8.2 (6.3-8.2) g/dL Albumin 5.1 H (3.5-5.0) g/dL Urine Color Urine Appearance (Clear) Urine pH (5.0-8.0) Ur Specific Hedrick (1.001-1.035) Urine Protein (Negative) Urine Glucose (UA) (Negative) Urine Ketones (Negative) Urine Blood (Negative) Urine Nitrite (Negative) Urine Bilirubin (Negative) Urine Urobilinogen (<2.0) mg/dL Ur Leukocyte Esterase (Negative) Urine WBC (0-5) /hpf Ur Squamous Epith Cells (0-4) /hpf Amorphous Sediment (None) /hpf Urine Bacteria (None) /hpf Urine Mucus (None) /hpf Urine Opiates Screen (NotDetected) Ur Oxycodone Screen (NotDetected) Urine Methadone Screen (NotDetected) Ur Barbiturates Screen (NotDetected) U Tricyclic Antidepress (NotDetected) Ur Phencyclidine Scrn (NotDetected) Ur Amphetamines Screen (NotDetected) U Methamphetamines Scrn (NotDetected) U Benzodiazepines Scrn (NotDetected) Urine Cocaine Screen (NotDetected) U Marijuana (THC) Screen (NotDetected) Influenza Type A (PCR) Not Detected (Not Detectd) Influenza Type B (PCR) Not Detected (Not Detectd) RSV (PCR) Not Detected (Not Detectd) SARS-CoV-2 (PCR) Not Detected (Not Detectd) Disposition Clinical Impression: Depression, Suicidal ideation Disposition: ADMITTED IP TO THIS [facility] Referrals: Les Kelsey MD [Primary Care Provider] - 1-2 days Time of Disposition: 20:23
[2024-09-07 18:32] LABS: Basophils % (A) 0 %; Eosinophils # (A) 0.1 k/uL (0-0.7); Eosinophils % (A) 0 %; HCT 48.7 % (34.0-46.0); Lymphocytes # (A) 1.6 k/uL (1.0-4.8); Lymphocytes % (A) 8 %; MCH 28.8 pg (25.0-35.0); MCHC 32.9 g/dL (31.0-37.0); MCV 87.4 fL (80.0-100.0); Mean Platelet Volume 7.5; Monocytes # (A) 0.7 k/uL (0-1.0); Monocytes % (A) 4 %; Neutrophils # (A) 17.8 k/uL (1.3-7.7); Neutrophils % (A) 88 %; Platelet Count 457 k/uL (150-450); RBC 5.57 m/uL (3.80-5.40); RDW 12.4 % (11.5-15.5); WBC 20.3 k/uL (3.8-10.6)
[2024-09-07] MEDS: ONDANSETRON 4 MG/2 ML VIAL IVP STA ×2 (18:34→20:51)
[2024-09-07] MEDS: LORazepam 2 MG/ML INJ IV STA ×2 (18:35→20:54)
[2024-09-07 18:42] LABS: ALT 21 U/L (4-34); AST 23 U/L (14-36); African American GFR (CKD) 81 (>60 ml/min/1.73 sqM); Albumin 5.1 g/dL (3.5-5.0); Alkaline Phosphatase 110 U/L (38-126); Anion Gap 13 mmol/L; Blood Urea Nitrogen 12 mg/dL (7-17); Calcium 10.7 mg/dL (8.4-10.2); Carbon Dioxide 32 mmol/L (22-30); Chloride 92 mmol/L (98-107); Glucose 145 mg/dL (74-99); Non-African American GFR(CKD) 70 (>60 ml/min/1.73 sqM); Sodium 137 mmol/L (137-145); Total Bilirubin 1.2 mg/dL (0.2-1.3); Total Protein 8.2 g/dL (6.3-8.2)
[2024-09-07 18:46] LABS: Amphetamine Screen,Urine Not Detected (NotDetected); Barbiturate Screen,Urine Detected (NotDetected); Benzodiazepines Screen,Urine Detected (NotDetected); Cocaine Screen,Urine Not Detected (NotDetected); Methadone Screen, Urine Not Detected (NotDetected); Opiate Screen,Urine Not Detected (NotDetected); Oxycodone Screen, Urine Detected (NotDetected); Phencyclidine Screen,Urine Not Detected (NotDetected); Tricyclic Antidepressant,Urine Detected (NotDetected); Urn Cannabinoid Scrn Detected (NotDetected)
[2024-09-07] MEDS: METOCLOPRAMIDE 5 MG/ML 2 ML VIAL IVP STA (18:47)
[2024-09-07 19:08] LABS: Amorphous Sediment,Urine Few /hpf; Appearance,Urine Turbid (Clear); Bacteria,Urine Occasional /hpf; Bilirubin,Urine Negative (Negative); Blood,Urine Negative (Negative); Color,Urine Yellow; Glucose,Urine (UA) Negative (Negative); Ketones,Urine Negative (Negative); Leukocyte Esterase,Urine Moderate (Negative); Mucus,Urine Rare /hpf; Nitrite,Urine Negative (Negative); PH, Urine 8.5 (5.0-8.0); Protein,Urine 2+ (Negative); Specific Gravity,Urine 1.022 (1.001-1.035); Squamous Epithelial Cell,Urine 25 /hpf (0-4); WBC,Urine 5 /hpf (0-5)
[2024-09-07] MEDS: IBUPROFEN 600 MG TAB PO STA (19:31)
[2024-09-07] MEDS: ACETAMINOPHEN TAB 500 MG TAB PO STA (19:32)
[2024-09-07 19:53] LABS: Influenza A Not Detected (Not Detectd); Influenza B Not Detected (Not Detectd); RSV Not Detected (Not Detectd)
[2024-09-07] MEDS ORDERED: ONDANSETRON 4 MG/2 ML VIAL IVP PRN (20:27)
[2024-09-07] MEDS: SODIUM CHLORIDE 0.9% 1,000 ML IV ONE (20:49)
--- NOTE | 2024-09-07 20:59 | XR ---
EXAMINATION TYPE: XR chest 2V DATE OF EXAM: 09/07/2024 7:55 PM CLINICAL INDICATION:Female, 58 years old with history of Difficulty breathing ; H COMPARISON: Chest radiographs from TECHNIQUE: XR chest 2V Frontal view of the chest. FINDINGS: Lungs/Pleura: There is no evidence of pleural effusion, focal consolidation, or pneumothorax. Pulmonary vascularity: Unremarkable. Heart/mediastinum: Cardiomediastinal silhouette is unremarkable. Musculoskeletal: No acute osseous pathology. Cervical spine surgical hardware seen. Other findings: None IMPRESSION: No acute cardiopulmonary disease/process. [facility], , 09/07/2024 8:57 PM
[2024-09-07] MEDS ORDERED: QUEtiapine 100 MG TAB PO SCH (23:30)
[2024-09-07] MEDS: SUMAtriptan succinate 50 MG TAB PO STA (23:46)
[2024-09-07] MEDS: QUEtiapine 400 MG TAB PO SCH (23:47)
[2024-09-07] MEDS: METOCLOPRAMIDE 5 MG/ML 2 ML VIAL IVP PRN (23:47)
[2024-09-08] MEDS: LORazepam 1 MG TAB PO PRN (03:57)
[2024-09-08] MEDS: MONTELUKAST 10 MG TAB PO SCH (08:37)
[2024-09-08] MEDS: atenoloL 25 MG TAB PO SCH (08:37)
[2024-09-08] MEDS: QUEtiapine 100 MG TAB PO SCH ×2 (08:37→20:19)
[2024-09-08] MEDS ORDERED: ALBUTEROL NEBULIZED 2.5 MG/3 ML INHALATION PRN (08:57)
[2024-09-08] MEDS: ACETAMINOPHEN TAB 325 MG TAB PO PRN (11:46)
--- NOTE | 2024-09-08 14:04 | P.CN ---
Psychiatric Consult - . Consult date: 09/08/24 Consult:: 09/08/24 13:56 IDENTIFYING DATA: This patient is a 58-year-old female, living independently, on SSD REASON FOR REFERRAL: Psychiatry was consulted for depression, suicidal ideations HISTORY OF PRESENT ILLNESS: The patient presented to the hospital with depression. Patient was petitioned due to suicidal thoughts, expressing no desire to live. White count was elevated at 20.3 and UDS was positive for oxycodone, barbiturates, TCAs, benzodiazepines and cannabis with patient having a current prescription for both Xanax and oxycodone. Patient seen and evaluated in her room with sitter at bedside. Patient expresses family and financial issues, stating her 2 years ago and she has been struggling financially ever since. She states her mother is in an assisted living as she is unable to visit her given the facility stating she exhibited behavioral issues while visiting her mom previously. She states having limited support and that her mom is her only support system and this has been difficult to navigate. She reports her brother selling the house that she was hopeful to obtain to be closer to her mom. She states the anniversary of her marriage was yesterday which was difficult. She does mention having a therapist she sees at [facility], stating she last saw him 1 month ago and was encouraged to see him more frequently given the ongoing psychosocial stressors she is reporting. She has an upcoming appointment with her PCP later this month. Patient does report some sleep and appetite difficulties, low energy, denying any difficulties with concentrating or anhedonia. Patient today denied any suicidal ideations, denying any access to firearms at home with no past suicide attempts. At this time patient denies any homicidal ideations, intent or plan. Patient denies any auditory, visual hallucinations and denies any paranoia or delusions. Patients admits to using cannabis nightly, denying any alcohol or nicotine. PAST PSYCHIATRIC HISTORY: Patient has a history of bipolar disorder. Patient is currently prescribed Seroquel 100 mg daily and 400 mg at bedtime, Restoril 30 mg as needed at bedtime, Xanax 1 mg 3 times daily as needed, all prescribed by her PCP. Patient denies any previous psychiatric hospitalizations. Patient sees Jatinder Lion for therapy at [facility]. Patient denies any history of suicide attempts in the past. PAST MEDICAL HISTORY: Fibromyalgia, seizure disorder, hypertension, migraines, GERD. ALLERGIES: as per EMR. CHEMICAL DEPENDENCY HISTORY: as per HPI. FAMILY PSYCHIATRIC/SUBSTANCE USE HISTORY: Patient states her brothers abuse alcohol SOCIAL HISTORY: Patient is single and has no children. She is living independently. She completed high school and is on SSD. MENTAL STATUS EXAM: General Appearance: Patient appears to be stated age is alert, pleasant, and cooperative. Patient appears to have fair hygiene and grooming wearing hospital gown with fair eye contact. Behavior: Patient is calmly lying in bed without any agitated behavior. Speech: Patient's speech is fluent and nonpressured. Mood/Affect: Patient reports their mood is "depressed", affect is congruent Suicidality/Homicidality: Patient denies having any suicidal or homicidal rosario ation intent or plan. Perceptions: Patient denies any visual hallucinations and denies any auditory hallucinations Though content/process: There is no evidence of any delusional thought content and thought process is linear and goal-directed. Memory and concentration: AOX3, grossly intact for the purposes of this session. Can spell "WORLD" backwards Judgment and insight: Poor IMPRESSIONS: Bipolar disorder, current episode depressed Cluster B traits Cannabis use disorder PLAN: -At this time patient DOES NOT meet criteria for inpatient psychiatric admission. -Would recommend the following medication changes/additions: Increase Seroquel to 100 mg daily and 500 mg at bedtime for depression/sleep, start hydroxyzine 25 mg as needed for anxiety/nausea. Psychoeducation provided on limiting benzodiazepines given the risks involved including dependence, tolerance and falls -Can discontinue 1:1 sitter at this time as patient is not currently an imminent threat to themselves -conditioning room worker to provide patient with outpatient mental health/psychiatry resources for appropriate follow up upon discharge -Communicated plan to patient's nurse -Will continue to follow along -Please contact with any questions.
[2024-09-08] MEDS: hydrOXYzine pamoate 25 MG CAP PO PRN (15:00)
[2024-09-08] MEDS: QUEtiapine 400 MG TAB PO SCH (20:19)
--- NOTE | 2024-09-08 20:41 | HP ---
HISTORY AND PHYSICAL CHIEF COMPLAINT: Depression with suicide intent. HISTORY OF PRESENT ILLNESS: This is a first known admission for this 58-year-old white female, who has been coming to the office for sometime with a lot of trouble with anxiety and depression. She has been under quite a bit of stress over the last several years in conflict with her brother over her mother's care. The mother, apparently, has dementia and has been in a facility or more than 1 facility, where she feels the mother is not getting good care. The brother refuses to listen to any of this and tries to keep her out of the homes where the mother is. It is suspected that there are 2 sides of this story. She came to the emergency room with suicidal thoughts. REVIEW OF SYSTEMS: She has had some nausea. She also had a fever in the emergency room with a white count of 20,000. She denies any chest pain, cough, abdominal pain, dysuria, headache, etc. Past medical history, family history and personal and social histories reveal that she is allergic to sulfa. MEDICATIONS: She is on: 1. Temazepam 30 mg at bedtime p.r.n. 2. Montelukast. 3. Seroquel 100 mg once a day. 4. Oxycodone 30 mg 4 times a day. 5. Seroquel 400 mg at bedtime. 6. Rizatriptan p.r.n. 7. Cyclobenzaprine p.r.n. 8. Aspirin. 9. Pantoprazole 40 mg once a day. 10.Atenolol 25 mg once a day. 11.Xanax 1 mg t.i.d. p.r.n. 12.Prochlorperazine 10 mg p.r.n. SOCIAL HISTORY: She does not smoke. She states she is a nondrinker. Remainder of her history is unremarkable. PHYSICAL EXAMINATION: VITAL SIGNS: Blood pressure is 110/70 with a pulse of 94. Respirations were 35. GENERAL: She appeared to be somewhat agitated. SKIN: Hot and dry. HEAD, EARS, EYES, NOSE, MOUTH, AND THROAT: Normal. Neck veins are not distended. Carotids normal. CHEST: Clear. CARDIAC: Demonstrated sinus tachycardia. ABDOMEN: Soft, nontender. EXTREMITIES: Normal. NEUROLOGIC: She is intact, but depressed and very anxious. She is admitted to the hospital with diagnoses of: 1. Major depression. 2. Suicidal thoughts. 3. Fever of unknown origin. 4. Leukocytosis. PLAN: 1. Bedrest. 2. IV fluids. 3. Workup for fever and white count. 4. Psych consult. MMODL / IJN: [id number] /
--- NOTE | 2024-09-08 21:03 | PN ---
PROGRESS NOTE DATE OF SERVICE: 09/08/2024 CHIEF COMPLAINT: Major depression and suicidal thoughts. HISTORY OF PRESENT ILLNESS: This is the 1st admission for this 58-year-old female. She presented to the emergency room because she has been getting progressively more upset with situation regarding her brother from whom she is estranged and her mother, who was in a halfway. The patient, apparently, was considering suicide when she came in the emergency room. In the emergency room, she had a temperature, but she also had a white count of 20,300. She had no chest pain, cough, shortness of breath, abdominal pain, urinary symptoms, etc. PHYSICAL EXAMINATION: GENERAL: She is awake and alert. CHEST: Clear. CARDIAC EXAM: Normal. ABDOMEN: Soft, nontender. IMPRESSION: 1. Fever of unknown origin. 2. Major depression with suicidal thoughts. PLAN: 1. Continue to workup fever. 2. Refer to Psychiatry. 3. Withhold her scheduled 2 medications. MMODL / IJN: [id number] /
[2024-09-09] MEDS: SUMAtriptan succinate 50 MG TAB PO PRN (10:27)
[2024-09-09 11:27] LABS: Basophils % (A) 0 %; Eosinophils # (A) 0.1 k/uL (0-0.7); Eosinophils % (A) 1 %; HCT 41.4 % (34.0-46.0); HGB 13.5 gm/dL (11.4-16.0); Lymphocytes # (A) 0.4 k/uL (1.0-4.8); Lymphocytes % (A) 4 %; MCH 28.4 pg (25.0-35.0); MCHC 32.5 g/dL (31.0-37.0); MCV 87.4 fL (80.0-100.0); Mean Platelet Volume 7.8; Monocytes % (A) 10 %; Neutrophils # (A) 8.6 k/uL (1.3-7.7); Neutrophils % (A) 85 %; Platelet Count 220 k/uL (150-450); RBC 4.74 m/uL (3.80-5.40); RDW 12.6 % (11.5-15.5); WBC 10.2 k/uL (3.8-10.6)
[2024-09-09 11:38] LABS: AST 24 U/L (14-36); African American GFR (CKD) >90 (>60 ml/min/1.73 sqM); Albumin 4.2 g/dL (3.5-5.0); Albumin/Globulin Ratio 1.7; Alkaline Phosphatase 75 U/L (38-126); Anion Gap 11 mmol/L; Blood Urea Nitrogen 10 mg/dL (7-17); Carbon Dioxide 29 mmol/L (22-30); Chloride 84 mmol/L (98-107); Globulin 2.5 g/dL; Glucose 152 mg/dL (74-99); Non-African American GFR(CKD) >90 (>60 ml/min/1.73 sqM); Sodium 124 mmol/L (137-145); Total Bilirubin 0.9 mg/dL (0.2-1.3); Total Protein 6.7 g/dL (6.3-8.2)
[2024-09-09 11:45] LABS: ALT 24 U/L (4-34)
[2024-09-09 11:51] LABS: Potassium 2.7 mmol/L (3.5-5.1)
[2024-09-09] MEDS ORDERED: Potassium Replacement Protocol 1 EACH MISC MISCELLANE PRN (13:30)
[2024-09-09] MEDS: POTASSIUM CHLORIDE ER 20 MEQ TAB.ER PO SCH ×2 (13:40→20:32)
[2024-09-09] MEDS: atenoloL 25 MG TAB PO SCH (20:15)
--- NOTE | 2024-09-09 22:12 | PN ---
PROGRESS NOTE DATE OF SERVICE: 09/09/2024 CHIEF COMPLAINT: Major depression and suicidal thoughts. HISTORY OF PRESENT ILLNESS: This lady has a migraine headache today. Apparently, Psychiatry has evaluated her and does not think that she meets criteria for inpatient psych care. We may be able to discharge her later in the day. PHYSICAL EXAMINATION: CHEST: Clear. CARDIAC: Normal. ABDOMEN: Soft, nontender. IMPRESSION: 1. Migraine headache. 2. Depression. 3. Suicidal thoughts. PLAN: Possibly home later today. MMODL / IJN: [id number] /
[2024-09-10] MEDS: POTASSIUM CHLORIDE ER 20 MEQ TAB.ER PO SCH ×2 (01:10→06:23)
[2024-09-10] MEDS: DIPHENOX-ATROP 2.5-0.025 MG 1 EACH TAB PO PRN (20:45)
--- NOTE | 2024-09-11 00:44 | PN ---
PROGRESS NOTE CHIEF COMPLAINT: Major depression and suicidal personality. HISTORY OF PRESENT ILLNESS: This lady is doing fairly well and is not to be moved to psych. She is having trouble with nausea, vomiting, and watery diarrhea now. Stool is being sent for C diff. PHYSICAL EXAMINATION: VITAL SIGNS: Normal. CHEST: Clear. CARDIAC: Normal. IMPRESSION: 1. Depression with suicidal thoughts. 2. Nausea and vomiting. 3. Diarrhea, etiology unknown. PLAN: Hold discharge and workup of her GI symptoms. MMODL / IJN: [id number] /
[2024-09-11] MEDS: POTASSIUM CHLORIDE ER 20 MEQ TAB.ER PO SCH ×2 (05:34→09:33)
[2024-09-11 13:44] VITALS: BMI 29.2
[2024-09-11] MEDS: ETODOLAC 400 MG TAB PO PRN (21:22)
--- NOTE | 2024-09-12 00:52 | PN ---
PROGRESS NOTE DATE OF SERVICE: 09/11/2024 CHIEF COMPLAINT: Major depression. HISTORY OF PRESENT ILLNESS: This lady is doing a little bit better. Nausea and vomiting seemed to have subsided as has her diarrhea. Potassium is low. PHYSICAL EXAMINATION: CHEST: Clear. CARDIAC: Normal. ABDOMEN: Soft, nontender. IMPRESSION: 1. Major depression. 2. Vomiting. 3. Diarrhea. PLAN: Progress diet and activity. If she remains stable, she may be able to be discharged tomorrow. MMODL / IJN: [id number] /
[2024-09-12] MEDS: POTASSIUM CHLORIDE ER 20 MEQ TAB.ER PO SCH ×2 (06:27→12:52)
[2024-09-12 12:46] VITALS: BP 156/85; PULSE 94; RESP 16; TEMP 97.4
[2024-09-12] MEDS ORDERED: POTASSIUM CHLORIDE ER 20 MEQ TAB.ER PO SCH (13:00)
--- NOTE | 2024-09-13 19:02 | DS ---
DISCHARGE SUMMARY CHIEF COMPLAINT: Intractable nausea, vomiting, depression, and suicidal thoughts. HISTORY OF PRESENT ILLNESS AND PHYSICAL EXAMINATION: Details of this lady's history and physical can be found in the initial workup. LABORATORY STUDIES: While she was in the hospital, she had laboratory studies, details of which can be found in the laboratory section of her chart. COURSE IN THE HOSPITAL: After admission, she was placed on bedrest, on intravenous fluids and placed on suicide precautions. When she was stabilized, she was seen by Psychiatry who felt that she did not need to go to the psych unit. She then began having trouble with intractable diarrhea along with vomiting. This eventually was controlled and she was doing well and it was felt she could be discharged on the . FINAL DIAGNOSES: 1. Major depression. 2. Drug ingestion overdose. 3. Intractable nausea and vomiting. 4. Intractable diarrhea. OPERATIONS: None. CONSULTATIONS: Psychiatry. BRADLEY / MONTY: [id number] /
== END 2024-09-12 16:55 | disposition home or self-care (01) | DRG 880 ==
LOC: EC 17:43 → 5NMEDONC 20:26
PROVIDERS: ADMIT Family Medicine; ATTEND Family Medicine
DX: R45.851 Suicidal ideations (principal); G40.909 Epilepsy, unspecified, not intractable, without status epilepticus; F12.10 Cannabis abuse, uncomplicated; F31.30 Bipolar disorder, current episode depressed, mild or moderate severity, unspecified; I10 Essential (primary) hypertension; Z11.52 Encounter for screening for COVID-19; F41.9 Anxiety disorder, unspecified; F43.10 Post-traumatic stress disorder, unspecified; R50.9 Fever, unspecified; M79.7 Fibromyalgia; Z59.86 Financial insecurity; R19.7 Diarrhea, unspecified; G43.909 Migraine, unspecified, not intractable, without status migrainosus; Z87.891 Personal history of nicotine dependence; Z98.1 Arthrodesis status; Z88.2 Allergy status to sulfonamides; Z88.1 Allergy status to other antibiotic agents; Z90.49 Acquired absence of other specified parts of digestive tract
CPT/HCPCS: 36415; 71046; 80053; 80306; 81001; 82075; 84132; 85025; 87324; 87636; 96361; 96374; 96375; 96376; 99291

== ENCOUNTER 2024-09-22 12:16 | Inpatient (IN) | payer MEDICARE ==
[2024-09-22 13:34] LABS: Basophils # (A) 0.1 k/uL (0-0.2); Basophils % (A) 0 %; Eosinophils # (A) 0.1 k/uL (0-0.7); Eosinophils % (A) 0 %; HGB 14.2 gm/dL (11.4-16.0); Lymphocytes # (A) 1.6 k/uL (1.0-4.8); Lymphocytes % (A) 6 %; MCH 29.1 pg (25.0-35.0); MCHC 34.6 g/dL (31.0-37.0); MCV 84.1 fL (80.0-100.0); Mean Platelet Volume 7.1; Monocytes # (A) 1.3 k/uL (0-1.0); Monocytes % (A) 5 %; Neutrophils # (A) 22.9 k/uL (1.3-7.7); Neutrophils % (A) 88 %; Platelet Count 430 k/uL (150-450); RBC 4.87 m/uL (3.80-5.40); RDW 12.7 % (11.5-15.5); WBC 26.2 k/uL (3.8-10.6)
[2024-09-22 13:44] LABS: ALT 13 U/L (4-34); African American GFR (CKD) >90 (>60 ml/min/1.73 sqM); Albumin 4.8 g/dL (3.5-5.0); Alcohol <10 mg/dL; Anion Gap 13 mmol/L; Blood Urea Nitrogen 9 mg/dL (7-17); Calcium 9.8 mg/dL (8.4-10.2); Carbon Dioxide 19 mmol/L (22-30); Chloride 94 mmol/L (98-107); Glucose 113 mg/dL (74-99); Non-African American GFR(CKD) >90 (>60 ml/min/1.73 sqM); Sodium 126 mmol/L (137-145); Total Bilirubin 1.5 mg/dL (0.2-1.3); Total Protein 7.6 g/dL (6.3-8.2)
[2024-09-22 13:46] LABS: AST 26 U/L (14-36); Alkaline Phosphatase 83 U/L (38-126); Potassium 4.8 mmol/L (3.5-5.1)
[2024-09-22] MEDS: SODIUM CHLORIDE 0.9% 1,000 ML IV ONE (15:47)
[2024-09-22] MEDS: SODIUM CHLORIDE 0.9% 1,000 ML IV SCH (15:47)
[2024-09-22] MEDS: LORazepam 2 MG/ML INJ IV STA (15:48)
[2024-09-22] MEDS: PANTOPRAZOLE 40 MG/10 ML VIAL IVP STA (15:49)
[2024-09-22] MEDS: ONDANSETRON 4 MG/2 ML VIAL IVP STA (15:49)
[2024-09-22 16:05] LABS: Influenza A Not Detected (Not Detectd); Influenza B Not Detected (Not Detectd); RSV Not Detected (Not Detectd)
[2024-09-22] MEDS: diphenhydrAMINE 50 MG/ML 1 ML VIAL IVP STA (16:40)
[2024-09-22] MEDS: METOCLOPRAMIDE 5 MG/ML 2 ML VIAL IVP STA (16:40)
--- NOTE | 2024-09-22 16:43 | CT ---
EXAMINATION TYPE: CT abdomen pelvis w con CT DLP: 1048.5 mGycm, Automated exposure control for dose reduction was used. DATE OF EXAM: 09/22/2024 4:35 PM COMPARISON: None CLINICAL INDICATION:Female, 58 years old with history of abd pain, n/v; Abdominal pain. N/V. TECHNIQUE: Standard CT of the abdomen and pelvis following the administration of 100 cc of Isovue 3 00 IV contrast material. Coronal and sagittal reformats were performed. FINDINGS: LOWER CHEST: Minimal dependent left lower lobe subsegmental atelectasis. ABDOMEN LIVER: Unremarkable GALLBLADDER AND BILE DUCTS: Gallbladder is surgically absent with mild intrahepatic and extra hepatic biliary dilatation likely physiologic and a postcholecystectomy change. No evidence of choledocholit hiasis. PANCREAS: Unremarkable. SPLEEN: Unremarkable. ADRENAL GLANDS: Unremarkable. KIDNEYS AND URETERS: No evidence of hydronephrosis or renal calculus. The kidneys enhance symmetrical ly. Contrast is demonstrated within both collecting systems on the delayed phase. PELVIS BLADDER: Unremarkable REPRODUCTIVE: The uterus is surgically absent. ABDOMEN & PELVIS STOMACH AND BOWEL: Small hiatal hernia, duodenum is unremarkable. The appendix is not identified krishnamurthy khalif there is no significant inflammatory changes within the right lower quadrant. Redundant sigmoid c olon. No focal bowel wall thickening or surrounding inflammatory changes. No pneumatosis. No evidence of bowel obstruction. PERITONEUM: No evidence of pneumoperitoneum or free fluid. VASCULATURE: Mild atherosclerotic calcifications are present throughout the abdominal aorta and its b ranches. No evidence of aortic aneurysm. Multiple pelvic phleboliths. MUSCULOSKELETAL: No acute osseous abnormalities. Degenerative disc disease L5-S1. Minimal grade 1 ret rolisthesis of L4 on L5 without evidence of pars defects. LYMPH NODES: No evidence for lymphadenopathy. SOFT TISSUE/ABDOMINAL WALL: Tiny fat filled umbilical hernia. IMPRESSION: 1. No CT evidence for acute abdominal/pelvic process. 2. Postcholecystectomy changes. [facility], , 09/22/2024 4:40 PM
[2024-09-22] MEDS ORDERED: NALOXONE 0.4 MG/ML 1 ML VIAL IV PRN (16:58)
--- NOTE | 2024-09-22 17:03 | ED ---
General Adult HPI - General Chief complaint: Psychiatric Symptoms Stated complaint: Mental health Time Seen by Provider: 09/22/24 12:54 Source: patient, RN notes reviewed, old records reviewed Mode of arrival: ambulatory Limitations: no limitations - History of Present Illness Initial comments: Patient is a 58-year-old female sent by her PCP Dr. Kelsey for admission and psychiatric evaluation. She presented manic to his office. He believes she requires a psychiatric evaluation and he called ahead. Patient is also complaining of 1 day of intractable nausea and vomiting which has happened previously. Was seen for previous episodes earlier this month and ultimately was discharged home. Had a high white blood cell count at that time with no clear etiology. She denies any significant abdominal pain, denies any urinary issues. Denies any fevers or cough. Has no other acute complaints at this time other than the nausea and vomiting. Denies suicidal ideations or intents. Patient is manic states she has not slept in multiple days. Presents for further evaluation. Homicidal ideations, times complaints. Denies any hallucinations.Patient denies any hematemesis, bilious emesis. - Related Data Home Medications Medication Instructions Recorded Confirmed Montelukast [Singulair] 10 mg PO DAILY 04/08/19 09/22/24 atenoloL [Tenormin] 25 mg PO DAILY@1900 04/08/19 09/22/24 Albuterol Inhaler [Ventolin Hfa 2 puff INHALATION RT-QID PRN 09/07/24 09/22/24 Inhaler] QUEtiapine [SEROquel] 100 mg PO HS 09/07/24 09/22/24 QUEtiapine [SEROquel] 400 mg PO HS 09/07/24 09/22/24 Rizatriptan Benzoate 10 mg PO DAILY PRN 09/07/24 09/22/24 Cyclobenzaprine [Flexeril] 10 mg PO BID PRN 09/22/24 09/22/24 busPIRone HCl [Buspar] 5 - 10 mg PO TID PRN 09/22/24 09/22/24 Allergies Allergy/AdvReac Type Severity Reaction Status Date / Time Sulfa (Sulfonamide Allergy Rash/Hives Verified 09/22/24 16:05 Antibiotics) [place] Allergy Unknown THROAT Uncoded 09/22/24 16:05 SCRATCHY Review of Systems ROS Statement: Those systems with pertinent positive or pertinent negative responses have been documented in the HPI. Review of Systems: CONST: Denies fever EYES: Denies blurry vision ENT: Denies nasal congestion C/V: Denies Chest pain RESP: Denies shortness of breath GI: Endorses nausea and vomiting. : Denies dysuria SKIN: Denies rash. MSK: Denies joint pain. NEURO: Denies headache ROS Other: All systems not noted in ROS Statement are negative. Past Medical History Past Medical History: Fibromyalgia, GERD/Reflux, Hypertension, Seizure Disorder Additional Past Medical History / Comment(s): migraines, States 9 seizures 1 year ago (2018)-states they thought it may have been caused by brain lesions and high bloodpressure., Seasonal Allergies, Hx pancreatitis (16 yrs old -states drank heavily), constipation., states having throat pain -some dysphagia., has TMJ., Hx of neck fusion with screws. Left side carotid aneuysm per patient. History of Any Multi-Drug Resistant Organisms: None Reported Past Surgical History: Breast Surgery, Cholecystectomy Additional Past Surgical History / Comment(s): neck fusion and screws , cyst bilateral breast. Past Anesthesia/Blood Transfusion Reactions: No Reported Reaction Past Psychological History: Anxiety, Depression, PTSD Smoking Status: Former smoker Past Alcohol Use History: None Reported Past Drug Use History: Marijuana - Past Family History Mother Family Medical History: COPD, Dementia Father Family Medical History: Cancer Additional Family Medical History / Comment(s): smoker; etoh; from alcoholism General Exam - General Exam Comments Initial Comments: General: Appears manic, anxious. HEAD: Normal with no signs of head trauma. EYES: PERRLA, EOMI, conjunctiva normal, no discharge. ENT: Hearing grossly intact, normal oropharynx. RESPIRATORY: Clear breath sounds bilaterally. No wheezes, rales, or rhonchi. C/V: Regular rate and rhythm. S1 and S2 auscultated, no edema, peripheral pulses 2+ and intact throughout ABD: Abdomen soft, nondistended. Endorses nausea and vomiting. No significant tenderness on palpation. EXT: Normal range of motion, no obvious deformity SKIN: No rashes or lesions observed on exposed skin. NEURO: Alert and oriented x 4. Pressured speaking. Limitations: no limitations Course Vital Signs 09/22/24 09/22/24 12:17 17:34 Temperature 97.4 F L Pulse Rate 118 H 98 Respiratory 20 18 Rate Blood Pressure 185/83 168/86 O2 Sat by Pulse 99 100 Oximetry Medical Decision Making - Medical Decision Making Was pt. sent in by a medical professional or institution (, MAAME, INTERVENTION ANALYST, urgent care, hospital, or senior care...) When possible be specific @ -No Did you speak to anyone other than the patient for history (EMS, parent, family, police, friend...)? What history was obtained from this source @ -No Did you review nursing and triage notes (agree or disagree)? Why? @ -I reviewed and agree with nursing and triage notes Were old charts reviewed (outside hosp., previous admission, EMS record, old EKG, old radiological studies, urgent care reports/EKG's, senior care records)? Report findings @ -Old charts from earlier August 2024 when patient had a similar leukocytosis of unknown etiology. Similar symptoms of intractable nausea and vomiting. Differential Diagnosis (chest pain, altered mental status, abdominal pain women, abdominal pain men, vaginal bleeding, weakness, fever, dyspnea, syncope, headache, dizziness, GI bleed, back pain, seizure, CVA, palpatations, mental health, musculoskeletal)? @ -No acute pulmonary, nausea and vomiting, beatris, dehydration. This list is not all inclusive. EKG interpreted by me (3pts min.). @ -As above X-rays interpreted by me (1pt min.). @ -None done CT interpreted by me (1pt min.). @ -CT abdomen pelvis negative for any obvious acute intra-abdominal process at this time. U/S interpreted by me (1pt. min.). @ -None done What testing was considered but not performed or refused? (CT, X-rays, U/S, labs)? Why? @ -None What meds were considered but not given or refused? Why? @ -None Did you discuss the management of the patient with other professionals (professionals i.e. , MAAME, INTERVENTION ANALYST, lab, RT, psych nurse, professor of social work, admiralty lawyer, teacher, aeronautical engineering officer, case preparer and liner)? Give summary @ -Discussed with Dr. Kelsey who was in agreement plan for admission to medicine and psychiatric evaluation. Was smoking cessation discussed for >3mins.? @ -No Was critical care preformed (if so, how long)? @ -No Were there social determinants of health that impacted care today? How? (Homelessness, low income, unemployed, alcoholism, drug addiction, transportation, low edu. Level, literacy, decrease access to med. care, alf, rehab)? @ -No Was there de-escalation of care discussed even if they declined (Discuss DNR or withdrawal of care, Hospice)? DNR status @ -No What co-morbidities impacted this encounter? (DM, HTN, Smoking, COPD, CAD, Cancer, CVA, ARF, Chemo, Hep., AIDS, mental health diagnosis, sleep apnea, morbid obesity)? @ -None Was patient admitted / discharged? Hospital course, mention meds given and route, prescriptions, significant lab abnormalities, going to OR and other pertinent info. @ -Based on patient's presentation and physical exam, presents with intractable nausea and vomiting as well as beatris and psychiatric evaluation. Sent by Dr. Kelsey her PCP. Originally seen in the waiting room and workup started. Laboratory studies returned for leukocytosis of 26 of unknown etiology. Patient is mildly hyponatremic at 126 and hypochloremic at 94 likely secondary to dehydration. No significant acidosis. Viral swabs negative. Alcohol level negative. CT and pelvis is unremarkable. EKG showed no signs of acute ischemia. On reevaluation, patient still having active nausea and vomiting. States has been ongoing for at least 1 to 2 days. Leukocytosis suspected to be reactive as this has happened previously for the patient. Patient will be given IV Reglan as the Zofran is not improving her symptoms as well as Benadryl and fluids. Patient also given a dose of Ativan. She was in agreement this plan. On reevaluation, patient is feeling improved. She will be admitted. No indication for antibiotics at this time. Will monitor the leukocytosis. Discussed with Dr. Kelsey who accepted the admission. No concern for sepsis at this time. Psychiatry consulted. Undiagnosed new problem with uncertain prognosis? @ -No Drug Therapy requiring intensive monitoring for toxicity (Heparin, Nitro, Insulin, Cardizem)? @ -No Were any procedures done? @ -No Diagnosis/symptom? @ -Leukocytosis of unknown etiology, beatris, intractable nausea and vomiting Acute, or Chronic, or Acute on Chronic? @ -Acute Uncomplicated (without systemic symptoms) or Complicated (systemic symptoms)? @ -Complicated Side effects of treatment? @ -No Exacerbation, Progression, or Severe Exacerbation? @ -No Poses a threat to life or bodily function? How? (Chest pain, [place], [place], pneumonia, PE, COPD, DKA, ARF, appy, cholecystitis, CVA, Diverticulitis, Homicidal, Suicidal, threat to staff... and all critical care pts) @ -Yes - Lab Data Result diagrams: 09/22/24 13:29 09/22/24 13: Lab Results 09/22/24 09/22/24 09/22/24 Range/Units 13: 13: 13: WBC 26.2 H (3.8-10.6) k/uL RBC 4.87 (3.80-5.40) m/uL Hgb 14.2 (11.4-16.0) gm/dL Hct 41.0 (34.0-46.0) % MCV 84.1 (80.0-100.0) fL MCH 29.1 (25.0-35.0) pg MCHC 34.6 (31.0-37.0) g/dL RDW 12.7 (11.5-15.5) % Plt Count 430 (150-450) k/uL MPV 7.1 Neutrophils % 88 % Lymphocytes % 6 % Monocytes % 5 % Eosinophils % 0 % Basophils % 0 % Neutrophils # 22.9 H (1.3-7.7) k/uL Lymphocytes # 1.6 (1.0-4.8) k/uL Monocytes # 1.3 H (0-1.0) k/uL Eosinophils # 0.1 (0-0.7) k/uL Basophils # 0.1 (0-0.2) k/uL Sodium 126 L (137-145) mmol/L Potassium 4.8 (3.5-5.1) mmol/L Chloride 94 L (98-107) mmol/L Carbon Dioxide 19 L (22-30) mmol/L Anion Gap 13 mmol/L BUN 9 (7-17) mg/dL Creatinine 0.66 (0.52-1.04) mg/dL Est GFR (CKD-EPI)AfAm >90 (>60 ml/min/1.73 sqM) Est GFR (CKD-EPI)NonAf >90 (>60 ml/min/1.73 sqM) Glucose 113 H (74-99) mg/dL Calcium 9.8 (8.4-10.2) mg/dL Total Bilirubin 1.5 H (0.2-1.3) mg/dL AST 26 (14-36) U/L ALT 13 (4-34) U/L Alkaline Phosphatase 83 (38-126) U/L Total Protein 7.6 (6.3-8.2) g/dL Albumin 4.8 (3.5-5.0) g/dL Serum Alcohol <10 mg/dL Influenza Type A (PCR) (Not Detectd) Influenza Type B (PCR) (Not Detectd) RSV (PCR) (Not Detectd) SARS-CoV-2 (PCR) Not Detected (Not Detectd) 09/22/24 Range/Units 13:29 WBC (3.8-10.6) k/uL RBC (3.80-5.40) m/uL Hgb (11.4-16.0) gm/dL Hct (34.0-46.0) % MCV (80.0-100.0) fL MCH (25.0-35.0) pg MCHC (31.0-37.0) g/dL RDW (11.5-15.5) % Plt Count (150-450) k/uL MPV Neutrophils % % Lymphocytes % % Monocytes % % Eosinophils % % Basophils % % Neutrophils # (1.3-7.7) k/uL Lymphocytes # (1.0-4.8) k/uL Monocytes # (0-1.0) k/uL Eosinophils # (0-0.7) k/uL Basophils # (0-0.2) k/uL Sodium (137-145) mmol/L Potassium (3.5-5.1) mmol/L Chloride (98-107) mmol/L Carbon Dioxide (22-30) mmol/L Anion Gap mmol/L BUN (7-17) mg/dL Creatinine (0.52-1.04) mg/dL Est GFR (CKD-EPI)AfAm (>60 ml/min/1.73 sqM) Est GFR (CKD-EPI)NonAf (>60 ml/min/1.73 sqM) Glucose (74-99) mg/dL Calcium (8.4-10.2) mg/dL Total Bilirubin (0.2-1.3) mg/dL AST (14-36) U/L ALT (4-34) U/L Alkaline Phosphatase (38-126) U/L Total Protein (6.3-8.2) g/dL Albumin (3.5-5.0) g/dL Serum Alcohol mg/dL Influenza Type A (PCR) Not Detected (Not Detectd) Influenza Type B (PCR) Not Detected (Not Detectd) RSV (PCR) Not Detected (Not Detectd) SARS-CoV-2 (PCR) Not Detected (Not Detectd) - EKG Data -: EKG Interpreted by Me EKG Comments: 12-lead Electrocardiogram Interpretation Note EKG was reviewed and interpreted by myself. 12-lead ECG performed at 1330 is interpreted by me as revealing sinus tachycardia at a rate of 110 beats per minute. [place] is normal. MO interval is 158 ms, QRS durations 85 ms, QTc is 369 ms.. There were no ST or T wave abnormalities to suggest myocardial ischemia or injury. R wave progression across the precordium was satisfactory. By my interpretation this EKG is non-diagnostic for acute ischemia. Disposition Clinical Impression: Intractable nausea and vomiting, Beatris, Leukocytosis Disposition: ADMITTED IP TO THIS HOSP Condition: Stable Time of Disposition: 17:00
[2024-09-22] MEDS ORDERED: ALBUTEROL NEBULIZED 2.5 MG/3 ML INHALATION PRN (20:07)
[2024-09-22 20:16] LABS: Appearance,Urine Clear (Clear); Bilirubin,Urine Negative (Negative); Blood,Urine Negative (Negative); Color,Urine Light Yellow; Glucose,Urine (UA) Negative (Negative); Ketones,Urine Negative (Negative); Leukocyte Esterase,Urine Negative (Negative); Nitrite,Urine Negative (Negative); PH, Urine 6.5 (5.0-8.0); Protein,Urine Negative (Negative); Specific Gravity,Urine 1.033 (1.001-1.035); Urobilinogen,Urine <2.0 mg/dL (<2.0)
[2024-09-22] MEDS: ACETAMINOPHEN TAB 325 MG TAB PO PRN (20:22)
[2024-09-22 20:27] LABS: Amphetamine Screen,Urine Not Detected (NotDetected); Barbiturate Screen,Urine Not Detected (NotDetected); Benzodiazepines Screen,Urine Detected (NotDetected); Cocaine Screen,Urine Not Detected (NotDetected); Methadone Screen, Urine Not Detected (NotDetected); Opiate Screen,Urine Not Detected (NotDetected); Oxycodone Screen, Urine Not Detected (NotDetected); Phencyclidine Screen,Urine Not Detected (NotDetected); Tricyclic Antidepressant,Urine Detected (NotDetected); Urn Cannabinoid Scrn Detected (NotDetected)
[2024-09-22] MEDS: QUEtiapine 100 MG TAB PO SCH (22:03)
[2024-09-22] MEDS: QUEtiapine 400 MG TAB PO SCH (22:03)
--- NOTE | 2024-09-22 23:15 | HP ---
HISTORY AND PHYSICAL CHIEF COMPLAINT: Agitation, delirium, and beatris. HISTORY OF PRESENT ILLNESS: This is another admission for this 58-year-old female. She called the office and then came in in a completely manic state. She is very agitated, is making no sense. She has been under some family difficulty being estranged from her brother who is trying to apparently prevent her from seeing her mother in a snf. She was very hyperactive and aggressive. When suggested that she needed psychiatric attention and should go to the hospital to be admitted, surprisingly, she agreed. In the emergency room, she was evaluated and found to have a white count of 26,200 without any obvious cause. She had no fever, chest pain, abdominal pain, etc. She is admitted to medical floor for medical workup and evaluation and a psychiatric consult. REVIEW OF SYSTEMS: She has no symptoms to suggest why she could have an elevated white count. Past medical history, family history, and personal and social histories reveal that she is allergic to sulfa. MEDICATIONS: She has been on, 1. BuSpar. 2. Etodolac 400 q.8. 3. Atenolol 25 once a day. 4. Albuterol inhaler. 5. Montelukast. 6. Seroquel 100 mg on top of 400 mg each day. 7. Pantoprazole. 8. Aspirin. She was recently in the hospital after she became depressed and was threatening suicide. At that time, she was taking Xanax and opioids and these have been stopped to prevent her from using them in a suicide attempt. PHYSICAL EXAMINATION: GENERAL: She is very agitated. VITAL SIGNS: Blood pressure of 145/100 and a pulse of 93. SKIN: Color is normal. Skin is warm and dry. HEAD, EARS, EYES, NOSE, MOUTH, AND THROAT: Coarsely examined and normal. CHEST: Clear. CARDIAC: Demonstrated tachycardia. She is admitted to the hospital with diagnoses of, 1. Beatris. 2. Acute psychosis. 3. Leukocytosis, etiology unknown. PLAN: 1. Bedrest. 2. IV fluids. 3. Appropriate cultures. 4. Appropriate labs. 5. Chest x-ray. MMODL / IJN: [id number] /
[2024-09-23] MEDS: SUMAtriptan succinate 50 MG TAB PO PRN (02:11)
[2024-09-23 05:48] LABS: ALT 11 U/L (4-34); AST 30 U/L (14-36); African American GFR (CKD) >90 (>60 ml/min/1.73 sqM); Albumin 3.6 g/dL (3.5-5.0); Albumin/Globulin Ratio 1.5; Alkaline Phosphatase 40 U/L (38-126); Anion Gap 15 mmol/L; Blood Urea Nitrogen 7 mg/dL (7-17); Calcium 9.3 mg/dL (8.4-10.2); Carbon Dioxide 16 mmol/L (22-30); Chloride 106 mmol/L (98-107); Globulin 2.4 g/dL; Glucose 101 mg/dL (74-99); Non-African American GFR(CKD) >90 (>60 ml/min/1.73 sqM); Sodium 137 mmol/L (137-145); Total Bilirubin 1.4 mg/dL (0.2-1.3)
[2024-09-23 06:12] LABS: Potassium 4.6 mmol/L (3.5-5.1)
[2024-09-23] MEDS: PANTOPRAZOLE 40 MG/10 ML VIAL IV SCH (09:12)
[2024-09-23 09:28] LABS: Basophils % (A) 0 %; Eosinophils # (A) 0.1 k/uL (0-0.7); Eosinophils % (A) 1 %; HCT 36.4 % (34.0-46.0); HGB 12.3 gm/dL (11.4-16.0); Lymphocytes # (A) 1.5 k/uL (1.0-4.8); Lymphocytes % (A) 10 %; MCHC 33.7 g/dL (31.0-37.0); MCV 86.1 fL (80.0-100.0); Mean Platelet Volume 7.5; Monocytes # (A) 1.1 k/uL (0-1.0); Monocytes % (A) 7 %; Neutrophils # (A) 11.7 k/uL (1.3-7.7); Neutrophils % (A) 80 %; Platelet Count 257 k/uL (150-450); RBC 4.23 m/uL (3.80-5.40); RDW 12.8 % (11.5-15.5); WBC 14.6 k/uL (3.8-10.6)
[2024-09-23] MEDS ORDERED: OLANZapine 10 MG VIAL IM PRN (13:53)
--- NOTE | 2024-09-23 14:01 | P.CN ---
Psychiatric Consult - . Consult date: 09/23/24 Consult:: 09/23/24 13:18 IDENTIFYING DATA: This patient is a 58-year-old female, she is , she has no kids she lives alone in apartment [facility] Social Security REASON FOR REFERRAL: Psychiatry was consulted for "sara" HISTORY OF PRESENT ILLNESS: The patient presented to the hospital yesterday brought in by her primary care doctor. Patient apparently showed up to her primary care doctor's office "manic". Patient was also reporting nausea vomiting decreased sleep. Patient's white blood cell count count was elevated at 26.2, neutrophil count was 22.9 and sodium was low at 126. Patient was seen today at the bedside, sitting on the bed watching television. She was agreeable to speak to consumer loan underwriter, attempting to cooperate, a bit intrusive at times difficult to redirect. She spoke significantly about her "brother being out of control" and states that he is her mother's power of nanoscience technician. Claims that her mother had a fall at home and the brother has been trying to get her into a long-term which she believes that she does not need. Patient was rambling at times, somewhat intrusive, endorsing some anxiety. Denies any depression. Appears to be moderately manic, during conversation. Claims that her brother "hates me and my mom" and was fairly focused on her brother during conversation. She did admit to have some mood swings, claims that she has a decreased need for sleep, poor appetite at this time. Denying any paranoia. At this time patient denies any suicidal or homical ideations, intent or plan. Patient denies any auditory, visual hallucinations and denies any paranoia or delusions. Patients admits to using marijuana frequently, denies any other recreational drug PAST PSYCHIATRIC HISTORY: Patient has a a history of bipolar disorder. Patient is currently on Seroquel prescribed by her PCP. Patient denies any previous psychiatric hospitalizations. She claims that she goes to [facility] however just to see her counselor. Patient denies any history of suicide attempts in the past. Past Medical History: Fibromyalgia, GERD/Reflux, Hypertension, Seizure Disorder Additional Past Medical History / Comment(s): migraines, States 9 seizures 1 year ago (2018)-states they thought it may have been caused by brain lesions and high bloodpressure., Seasonal Allergies, Hx pancreatitis (16 yrs old -states drank heavily), constipation., states having throat pain -some dysphagia., has TMJ., Hx of neck fusion with screws. Left side carotid aneuysm per patient. History of Any Multi-Drug Resistant Organisms: None Reported Past Surgical History: Breast Surgery, Cholecystectomy Additional Past Surgical History / Comment(s): neck fusion and screws , cyst bilateral breast. Past Anesthesia/Blood Transfusion Reactions: No Reported Reaction Past Psychological History: Anxiety, Depression, PTSD Smoking Status: Former smoker Past Alcohol Use History: None Reported Past Drug Use History: Marijuana ALLERGIES: as per EMR. CHEMICAL DEPENDENCY HISTORY: as per HPI. FAMILY PSYCHIATRIC/SUBSTANCE USE HISTORY: Claims that her brother has some form of mental illness SOCIAL HISTORY: Patient was born and raised in [facility]. Claims that she completed high school, states that she used to [place] in [place], she is she has no kids, she lives alone in an apartment, collect Social Security. Denies any legal history. MENTAL STATUS EXAM: General Appearance: Patient appears to be wearing glasses, laying on her bed, stated age is alert, somewhat cooperative, difficult to redirect at time. Patient appears to have fair hygiene and grooming wearing hospital gown with intense eye contact. Behavior: Patient is calmly lying in bed without any agitated behavior. A bit intrusive, difficult to redirect Speech: Patient's speech is fluent and nonpressured. Mildly pressured, talkative Mood/Affect: Patient reports their mood is "ok a bit anxious", affect is congruent Suicidality/Homicidality: Patient denies having any suicidal or homicidal ideation intent or plan. Perceptions: Patient denies any visual hallucinations and denies any auditory hallucinations Though content/process: Not endorsing delusion or paranoia. Fairly focused on negative thoughts towards her brother. Poor historian Memory and concentration: AOX3, grossly intact for the purposes of this session. Can spell "WORLD" backwards Judgment and insight: poor IMPRESSIONS: Bipolar disorder, current episode sara Cannabis use disorder PLAN: -At this time patient may possibly meet criteria for inpatient psychiatric admission however at this time will continue to follow along and give further recoemmnedations while she is being treated medically. -Would recommend the following medication changes/additions: Zyprexa as needed for agitation/severe anxiety/psychosis. Continue Seroquel 500 mg nightly for mood stabilization/sleep, trazodone 100 mg nightly for insomnia, Lithobid 450 mg daily for mood stabilization -landing worker to provide patient with outpatient mental health/psychiatry resources for appropriate follow up upon discharge -Scroll Shear Operator spoke with patient about substance abuse and the harmful effects on medical and mental health, patient verbally understood and agreed. -Communicated plan to patient's nurse -Will continue to follow along tomorrow -Please contact with any questions. 09/23/24 13:54
--- NOTE | 2024-09-23 15:00 | XR ---
EXAMINATION TYPE: XR chest 2V DATE OF EXAM: 09/23/2024 CLINICAL INDICATION: Female, 58 years old with history of leukocytosis, TECHNIQUE: Frontal and lateral views of the chest are obtained. COMPARISON: Prior chest x-ray September 07, 2024 FINDINGS: There is no focal air space opacity, pleural effusion, or pneumothorax seen. The cardiac silhouette size is stable and within normal limits. Anterior fusion plate in the lower cervical spine is redemonstrated. IMPRESSION: No acute pulmonary infiltrate. No significant change from most recent x-ray. [facility], , 09/23/2024 2:57 PM
[2024-09-23] MEDS: LITHIUM CARBONATE ER 450 MG TABLET.ER PO SCH (15:42)
[2024-09-23] MEDS: LORATADINE-PSEUDOEPH 5-120 MG 1 EACH TAB.ER.12H PO SCH ×2 (15:42→16:13)
[2024-09-23 16:38] LABS: Basophils # (A) 0.1 k/uL (0-0.2); Basophils % (A) 0 %; Eosinophils # (A) 0.1 k/uL (0-0.7); Eosinophils % (A) 1 %; HCT 36.9 % (34.0-46.0); HGB 12.4 gm/dL (11.4-16.0); Lymphocytes # (A) 1.6 k/uL (1.0-4.8); Lymphocytes % (A) 9 %; MCH 29.2 pg (25.0-35.0); MCHC 33.7 g/dL (31.0-37.0); MCV 86.9 fL (80.0-100.0); Mean Platelet Volume 7.2; Monocytes # (A) 1.1 k/uL (0-1.0); Monocytes % (A) 6 %; Neutrophils # (A) 14.1 k/uL (1.3-7.7); Neutrophils % (A) 81 %; Platelet Count 283 k/uL (150-450); RBC 4.25 m/uL (3.80-5.40); RDW 12.8 % (11.5-15.5); WBC 17.3 k/uL (3.8-10.6)
[2024-09-23] MEDS: traZODone HCL 100 MG TAB PO SCH (20:21)
[2024-09-23] MEDS: atenoloL 25 MG TAB PO SCH (20:21)
[2024-09-23] MEDS: OLANZapine 5 MG TAB PO PRN (22:12)
--- NOTE | 2024-09-23 22:58 | PN ---
PROGRESS NOTE DATE OF SERVICE: 09/23/2024 CHIEF COMPLAINT: Beatris and acute psychosis. HISTORY OF PRESENT ILLNESS: This lady is doing much better. She is much more calm. Her white count has also gone down. She denies any chest pain, sore throat, fever, cough, abdominal pain, urinary symptoms, etc. IMPRESSION: 1. Acute psychosis with beatris. 2. Bipolar depression. 3. Elevated white count. PLAN: Chest x-ray and repeat labs looking for any etiology for her elevated white count. MMODL / IJN: [id number] /
[2024-09-24] MEDS: CEFDINIR 300 MG CAP PO SCH (12:05)
[2024-09-24] MEDS: cloNIDine HCL 0.2 MG TAB PO SCH (12:06)
--- NOTE | 2024-09-24 13:03 | P.PN ---
Progress Note - Text Progress Note Date: 09/24/24 Interval history: Patient was seen today at the bedside for psychiatric follow-up. Patient guillermo beyerd to be less intrusive today, endorsed improving racing thoughts. She was also less talkative today not pressured in her speech. Claims that she feels a bit better since yesterday, denies any issues with the medications. She asked more questions about the side effects of her medications which were answered. Denies any depression at this time. Continues to still state that she did not sleep "a wink" last night and asked to have her Seroquel and trazodone increased. Claims that she is eating fairly. She will apparently be starting dexamethasone as prescribed by the ENT. At this time she is denying any suicidal homicidal ideations intent or plan denying any auditory or visual loosening. She is less focused on her brother and mother today during conversation. Not endorsing any paranoia or delusions. MENTAL STATUS EXAM: General Appearance: Patient appears to be wearing glasses, laying on her bed, stated age is alert, somewhat cooperative, difficult to redirect at time. Patien t appears to have fair hygiene and grooming wearing hospital gown with improving eye contact Behavior: Patient is calmly lying in bed without any agitated behavior. More directable today, more cooperative Speech: Patient's speech is fluent and nonpressured. Mood/Affect: Patient reports their mood is "better", affect is congruent Suicidality/Homicidality: Patient denies having any suicidal or homicidal ideation intent or plan. Perceptions: Patient denies any visual hallucinations and denies any auditory hallucinations Though content/process: Not endorsing delusion or paranoia. Less focused on her brother and mother. More future oriented. Memory and concentration: AOX3, grossly intact for the purposes of this session. Judgment and insight: poor, improving mildly IMPRESSIONS: Bipolar disorder, current episode sara Cannabis use disorder PLAN: -At this time patient may possibly meet criteria for inpatient psychiatric admission however at this time will continue to follow along and give further recoemmnedations while she is being treated medically. -Would recommend the following medication changes/additions: Zyprexa as needed for agitation/severe anxiety/psychosis. Increase Seroquel 600 mg nightly for mood stabilization/sleep, increase trazodone 200 mg nightly for insomnia, Lithobid 450 mg daily for mood stabilization. informed RN about the strong possibility that starting a steroid on this patient could infact worsen patients sara and possibly even cause psychosis/delirium -mop worker to provide patient with outpatient mental health/psychiatry resources for appropriate follow up upon discharge -Communicated plan to patient's nurse -Will continue to follow along tomorrow if patient is still in the hospital and needed. -Please contact with any questions.
[2024-09-24] MEDS: LOPERAMIDE 2 MG CAP PO PRN (15:40)
[2024-09-24] MEDS: traZODone HCL 100 MG TAB PO SCH (20:35)
[2024-09-24] MEDS: QUEtiapine 200 MG TAB PO SCH (20:36)
[2024-09-25] MEDS: dexAMETHasone 2 MG TAB PO SCH (08:43)
[2024-09-27] MEDS: LORATADINE 10 MG TAB PO SCH (20:19)
[2024-09-28 07:44] VITALS: RESP 16
[2024-09-28] MEDS: METOCLOPRAMIDE 5 MG/ML 2 ML VIAL IVP PRN (10:44)
--- NOTE | 2024-09-28 14:10 | P.PN ---
Progress Note - Text Progress Note Date: 09/28/24 Interval history: Patient was seen today at the bedside for psychiatric follow-up. Patient was fairly cooperative today at the bedside, fairly focused on discharge. States that she is doing fairly well with the Lithobid wants to continue taking it. Continues to state that she has troubles initiating sleep, was agreeable to try increased dose of trazodone. Also was encouraged to go for a sleep evaluation/sleep study if she continues to have problems with insomnia. States that she has an improvement in her appetite, denies any auditory or visual hallucinations. Denies any suicidal homicidal ideations intent or plan. Patient was more goal oriented, not bizarre today. States that she wants to live for her mother and her future. At this time she is denying any suicidal homicidal ideations intent or plan denying any auditory or visual hallucination. Not endorsing any paranoia or delusions. MENTAL STATUS EXAM: General Appearance: Patient appears to be wearing glasses, laying on her bed, stated age is alert, more cooperative, more directable. Patient appears to have fair hygiene and grooming wearing hospital gown with improving eye contact Behavior: Patient is calmly lying in bed without any agitated behavior. More directable today, more cooperative Speech: Patient's speech is fluent and nonpressured. Mood/Affect: Patient reports their mood is "better", affect is congruent Suicidality/Homicidality: Patient denies having any suicidal or homicidal ideation intent or plan. Perceptions: Patient denies any visual hallucinations and denies any auditory hallucinations Though content/process: Not endorsing delusion or paranoia. Goal oriented. More future oriented. Focused on discharge Memory and concentration: AOX3, grossly intact for the purposes of this session. Judgment and insight: improving mildly IMPRESSIONS: Bipolar disorder, current episode sara Cannabis use disorder PLAN: -At this time patient may possibly meet criteria for inpatient psychiatric admission however at this time will continue to follow along and give further recoemmnedations while she is being treated medically. -Would recommend the following medication changes/additions: Seroquel 600 mg nightly for mood stabilization/sleep, increase trazodone 300 mg nightly for insomnia, Lithobid 450 mg daily for mood stabilization. -The patient continues to have difficulties with insomnia, would consider referral to sleep study. -restaurant worker to provide patient with outpatient mental health/psychiatry resources for appropriate follow up upon discharge. Patient will be following up at [facility] -Communicated plan to patient's nurse -At this time psychiatry will sign off -Please contact with any questions.
--- NOTE | 2024-09-28 14:20 | PN ---
PROGRESS NOTE DATE OF SERVICE: 09/24/2024 CHIEF COMPLAINT: Acute psychosis and delirium. HISTORY OF PRESENT ILLNESS: This lady is complaining of a lot of discomfort in the left ear and not being able to hear. She does not seem to have pain and she is not having a lot of dizziness. She is being seen by ENT. She is also complaining of a lot of diarrhea. It is noted to that her blood pressure is slightly elevated. PHYSICAL EXAMINATION: CHEST: Clear. CARDIAC: Normal. ABDOMEN: Soft, nontender. VITAL SIGNS: Her blood pressure is elevated as well. IMPRESSION: 1. Acute psychosis. 2. Beatris. 3. Hypertension. 4. Discomfort and loss of hearing in both ears. PLAN: 1. Await ENT evaluation. 2. Add Catapres 0.2 three times a day. 3. Lomotil for her diarrhea. C. diff was negative. MMODL / IJN: [id number] /
--- NOTE | 2024-09-28 14:21 | PN ---
PROGRESS NOTE DATE OF SERVICE: 09/25/2024 CHIEF COMPLAINT: Acute psychosis. HISTORY OF PRESENT ILLNESS: This lady is still quite agitated. It is not clear if she is completely oriented. She is being followed closely by Psychiatry. PHYSICAL EXAMINATION: CHEST: Clear. CARDIAC: Normal. ABDOMEN: Soft, nontender. IMPRESSION: 1. Acute psychosis. 2. Delirium. 3. Beatris. 4. Hypertension. PLAN: Continue with her inpatient management until she is cleared by Psychiatry. They are reporting that she still may be a candidate for inpatient treatment. MMODL / IJN: [id number] /
--- NOTE | 2024-09-28 14:21 | CONS ---
CONSULTATION REASON FOR CONSULTATION: Sudden decreased hearing in the left ear and left ear pain. HISTORY OF PRESENT ILLNESS: The patient is a pleasant 58-year-old female, who was referred to the emergency room department for admission in psychiatric evaluation. The patient states that shortly after admission to the hospital, she developed pain in her left ear and also noted that the hearing was markedly decreased in the left ear compared to the right ear. She states that the ear is not tender to touch. She admits to a history of seasonal allergies, for which she is taking Claritin D. PAST MEDICAL HISTORY: Reveals she has allergies to sulfa and cottonwood. CURRENT MEDICATIONS: Include: 1. Singulair. 2. Tenormin. 3. Albuterol. 4. Seroquel. 5. Rizatriptan. 6. Flexeril. 7. BuSpar. REVIEW OF SYSTEMS: CARDIOVASCULAR: Positive for hypertension. RESPIRATORY: Positive for COPD/emphysema. MUSCULOSKELETAL: Positive for fibromyalgia. Remainder of the review of systems is essentially unremarkable. PHYSICAL EXAMINATION: GENERAL: The patient is a pleasant 58-year-old female, who is alert, cooperative, and is in no acute distress at this time. She is complaining of decreased hearing in the left ear of recent onset. HEENT: The patient is normocephalic. Examination of right ear reveals the right tympanic membrane is unremarkable. Examination of left ear reveals that the left tympanic membrane is dull with evidence of fluid in the left middle ear space. Palpation of the tragus does not elicit any pain, nor is there any pain elicited with insertion of the aural speculum. Palpation in the postauricular area does not elicit any pain in the left postauricular area. . Pupils equal, round, reactive to light and accommodation. Extraocular movements within normal limits. Intranasal examination reveals moderate septal deviation, compensatory hypertrophy of the inferior turbinates, and a moderate amount of mucus on the mucous membranes and draining down the posterior pharynx. Examination of oropharynx is unremarkable. Palpation of the neck does elicit some discomfort along the region of the left sternal mastoid muscle and at its insertion in the area of the left mastoid. There is no fluctuance, lymphadenopathy, or significant neck masses noted. Cranial nerves 2 through 12, remainder of the head and neck exam are within normal limits. CHEST/CARDIOVASCULAR: Both lung rai are clear. The patient is in regular sinus rhythm. S1, S2 are present without any murmurs, S3s, or S4s. Peripheral pulses are bilaterally symmetrical within normal limits. ABDOMEN: There is no evidence any masses, megaly, or tenderness. The abdomen is soft. The remainder of physical exam is unremarkable. ASSESSMENT: Left otalgia, left acute serous otitis media. PLAN: We are going to put her on Omnicef capsule 300 mg p.o. b.i.d. x5 days and also we are going to put her on a Decadron dose pack schedule x5 days. I recommend the patient be taken off the Claritin-D 12-hour because this may be aggravating her sara and the acting counterproductive to any psych medications that she is currently on as well as interfering with her sleep. I want to take this opportunity to thank you for allowing me to assist in care of your patient. If I could be of any further assistance, please feel free to call my office. I will sign off of this patient for now MMODL / IJN: [id number] / MTDD
--- NOTE | 2024-09-28 14:22 | PN ---
PROGRESS NOTE DATE OF SERVICE: 09/26/2024 CHIEF COMPLAINT: Acute psychosis, sara, and depression. HISTORY OF PRESENT ILLNESS: This lady is doing fairly well. It is not clear yet whether or not she is going to be going home or going to the psych floor. Psychiatry is requesting that she not be discharged until they give the approval. PHYSICAL EXAMINATION: CHEST: Clear. CARDIAC: Normal. ABDOMEN: Soft and nontender. IMPRESSION: 1. Acute psychosis with sara. 2. Depression. PLAN: Continue inpatient management until psychiatry decides whether she will be going inpatient or home. MMODL / IJN: [id number] /
--- NOTE | 2024-09-28 14:22 | PN ---
PROGRESS NOTE DATE OF SERVICE: 09/27/2024 CHIEF COMPLAINT: Acute psychosis. HISTORY OF PRESENT ILLNESS: This lady is doing well. Her ears still feel "plugged." She has not been seen by ENT again. We are waiting directions from Psychiatry who has not seen her since the . PHYSICAL EXAMINATION: VITAL SIGNS: Normal. CHEST: Clear. CARDIAC: Normal. IMPRESSION: 1. Acute psychosis with sara. 2. Decreased hearing in the left ear. PLAN: Await followup from ENT as well as a discharge plan from Psychiatry. MMODL / IJN: [id number] /
[2024-09-28 14:39] VITALS: BP 151/82; PULSE 92; TEMP 99.1
[2024-09-28] MEDS ORDERED: traZODone HCL 100 MG TAB PO SCH (21:00)
--- NOTE | 2024-09-29 02:43 | DS ---
DISCHARGE SUMMARY CHIEF COMPLAINT: Acute psychosis with sara. HISTORY OF PRESENT ILLNESS AND PHYSICAL EXAMINATION: Details of this lady's history and physical can be found in the initial workup. LABORATORY STUDIES: While she was in the hospital, she had laboratory studies, details of which can be found in the laboratory section of her chart. COURSE IN THE HOSPITAL: After admission, she was placed on bedrest, started on intravenous fluids and she was seen by Psychiatry. Her medications were adjusted and she gradually became much less manic. Psychiatry recommended there were some changes in her medications and she started to stabilize. They continued to monitor her progress and requested that she be kept on the medical floor until she was either deemed appropriate for the psychiatric unit or discharge home. Finally, on the , they felt that she could safely be discharged and she will follow up in the office in several days. FINAL DIAGNOSES: 1. Acute psychosis. 2. Delirium. 3. Major depression. 4. Opioid and tranquilizers abuse. OPERATIONS: None. CONSULTATIONS: Psychiatry. She is improved. MMMARIS / PARMODN: [id number] /
== END 2024-09-28 16:23 | disposition home or self-care (01) | DRG 885 ==
LOC: EC 12:16 → 5NMEDONC 16:58 → 6NMEDSUR 09-27 16:55
PROVIDERS: ADMIT Family Medicine; ATTEND Family Medicine
DX: F31.2 Bipolar disorder, current episode manic severe with psychotic features (principal); R45.850 Homicidal ideations; J43.9 Emphysema, unspecified; F12.10 Cannabis abuse, uncomplicated; I10 Essential (primary) hypertension; D72.828 Other elevated white blood cell count; H91.92 Unspecified hearing loss, left ear; H65.02 Acute serous otitis media, left ear; M79.7 Fibromyalgia; J34.2 Deviated nasal septum; J34.3 Hypertrophy of nasal turbinates; Z87.891 Personal history of nicotine dependence; Z79.899 Other long term (current) drug therapy; Z63.8 Other specified problems related to primary support group; Z88.2 Allergy status to sulfonamides; Z79.82 Long term (current) use of aspirin; Z98.1 Arthrodesis status
CPT/HCPCS: 36415; 71046; 74177; 80053; 80306; 80320; 81003; 85025; 87324; 87635; 87636; 93005; 96361; 96374; 96375; 99285

== ENCOUNTER 2024-12-28 07:15 | Emergency (ER) | payer MEDICARE ==
[2024-12-28 07:22] VITALS: RESP 18
--- NOTE | 2024-12-28 07:30 | ED ---
General Adult HPI - General Chief complaint: Nausea/Vomiting/Diarrhea Stated complaint: N/V/Headache Time Seen by Provider: 12/28/24 07:16 Source: patient Mode of arrival: EMS Limitations: no limitations - History of Present Illness Initial comments: Dictation was produced using [employer] dictation software. please excuse any grammatical, word or spelling errors. Chief Complaint: 59-year-old female with migraine History of Present Illness: Patient 59-year-old female presents to the emergency department with migraine headache. Patient has been having headaches since the last 3 to 4 days since her mother . Patient has a history of migrai jesse takes migraine medications. She tried taking hers but did not work. Patient states only medication that really helps her headache is Dilaudid. No visual changes. Denies any extremity symptoms. The ROS documented in this emergency department record has been reviewed and confirmed by me. Those systems with pertinent positive or negative responses have been documented in the HPI. All other systems are other negative and/or noncontributory. - Related Data Home Medications Medication Instructions Recorded Confirmed Montelukast [Singulair] 10 mg PO DAILY 04/08/19 11/28/24 atenoloL [Tenormin] 25 mg PO DAILY@1900 04/08/19 11/28/24 Rizatriptan Benzoate 10 mg PO DAILY PRN 09/07/24 11/28/24 Cyclobenzaprine [Flexeril] 10 mg PO BID PRN 09/22/24 11/28/24 Aspirin EC [Ecotrin Low Dose] 81 mg PO DAILY 11/28/24 11/28/24 Fluticasone Nasal [place] [Flonase 1 spr EA NOSTRIL DAILY 11/28/24 11/28/24 Nasal [place]] LORazepam [Ativan] 1 mg PO TID PRN 11/28/24 11/28/24 Prochlorperazine [Compazine] 10 mg PO Q6H PRN 11/28/24 11/28/24 oxyCODONE HCL [oxyCODONE HCL (IR)] 30 mg PO BID PRN 11/28/24 11/28/24 Previous Rx's Medication Instructions Recorded [place] Carbonate ER [Lithobid] 450 mg PO DAILY #10 tab 09/28/24 QUEtiapine [SEROquel] 600 mg PO HS #10 tab 09/28/24 Aspirin 81 mg PO DAILY tab 12/01/24 cefuroxime axetiL [Ceftin] 500 mg PO BID #20 tab 12/01/24 metroNIDAZOLE [Flagyl] 500 mg PO TID #30 tab 12/01/24 Allergies Allergy/AdvReac Type Severity Reaction Status Date / Time Sulfa (Sulfonamide Allergy Rash/Hives Verified 12/28/24 07:22 Antibiotics) face & neck [place] Allergy Unknown THROAT Uncoded 12/28/24 07:22 SCR[place]Y Review of Systems ROS Statement: Those systems with pertinent positive or pertinent negative responses have been documented in the HPI. ROS Other: All systems not noted in ROS Statement are negative. Past Medical History Past Medical History: Fibromyalgia, GERD/Reflux, Hypertension, Seizure Disorder Additional Past Medical History / Comment(s): migraines, States 9 seizures in 2018-states they thought it may have been caused by brain lesions and high bloodpressure., Seasonal Allergies, Hx pancreatitis (16 yrs old -states drank heavily), constipation., states having throat pain -some dysphagia., has TMJ., Hx of neck fusion with screws. Left side carotid aneuysm per patient. colitis History of Any Multi-Drug Resistant Organisms: None Reported Past Surgical History: Breast Surgery, Cholecystectomy Additional Past Surgical History / Comment(s): neck fusion and screws , cyst bilateral breast. Past Anesthesia/Blood Transfusion Reactions: No Reported Reaction Past Psychological History: Anxiety, Depression, PTSD Smoking Status: Former smoker Past Alcohol Use History: None Reported Past Drug Use History: Marijuana - Past Family History Mother Family Medical History: COPD, Dementia Father Family Medical History: Cancer Additional Family Medical History / Comment(s): smoker; etoh; from alcoholism General Exam - General Exam Comments Initial Comments: PHYSICAL EXAM: General Impression: Alert and oriented x3, not in acute distress HEENT: Normocephalic atraumatic, extra-ocular movements intact, pupils equal and reactive to light bilaterally, mucous membranes moist. Cardiovascular: Heart regular rate and rhythm Chest: Able to complete full sentences, no retractions, no tachypnea Abdomen: abdomen soft, non-tender, non-distended, no organomegaly Musculoskeletal: Pulses present and equal in all extremities, no peripheral edema Motor: no focal deficits noted Neurological: CN II-XII grossly intact, no focal motor or sensory deficits noted Skin: Intact with no visualized rashes Psych: Normal affect and mood Limitations: no limitations Course Vital Signs 12/28/24 12/28/24 12/28/24 07:19 07:32 08:10 Temperature 99.5 F Pulse Rate 106 H 96 100 Respiratory 18 18 18 Rate Blood Pressure 138/86 148/96 154/85 O2 Sat by Pulse 99 98 100 Oximetry Medical Decision Making - Medical Decision Making Was pt. sent in by a medical professional or institution (, PA, CONSTRUCTION COORDINATOR, urgent care, hospital, or care home...) When possible be specific @ -No Did you speak to anyone other than the patient for history (EMS, parent, family, police, friend...)? What history was obtained from this source @ -No Did you review nursing and triage notes (agree or disagree)? Why? @ -I reviewed and agree with nursing and triage notes Were old charts reviewed (outside hosp., previous admission, EMS record, old EKG, old radiological studies, urgent care reports/EKG's, care home records)? Report findings @ -Discharge summary from December 01 reviewed showing patient at that time had significant leukocytosis. She was admitted and monitored diagnosed with gastroenteritis. Differential Diagnosis (chest pain, altered mental status, abdominal pain women, abdominal pain men, vaginal bleeding, musculoskeletal, weakness, fever, dyspne a, syncope, headache, dizziness, GI bleed, back pain, seizure, CVA, palpatations, mental health)? @ -Differential Headache: Migraine, tension, cluster, carbon monoxide, central venous thrombosis, pension karma temporal arteritis, acute closure glaucoma, intercranial hemorrhage, mastoiditis, sinusitis, head injury, this is not meant to be an all-inclusive list. EKG interpreted by me (3pts min.). @ -None done X-rays interpreted by me (1pt min.). @ -None done CT interpreted by me (1pt min.). @ -None done U/S interpreted by me (1pt. min.). @ -None done What testing was considered but not performed or refused? (CT, X-rays, U/S, labs)? Why? @ -None What meds were considered but not given or refused? Why? @ -None Was smoking cessation discussed for >3mins.? @ -No Were there social determinants of health that impacted care today? How? (Homelessness, low income, unemployed, alcoholism, drug addiction, transportation, low edu. Level, literacy, decrease access to med. care, long term, rehab)? @ -No Was there de-escalation of care discussed even if they declined (Discuss DNR or withdrawal of care, Hospice)? DNR status @ -No What co-morbidities impacted this encounter? (DM, HTN, Smoking, COPD, CAD, Cancer, CVA, ARF, Chemo, Hep., AIDS, mental health diagnosis, sleep apnea, morbid obesity)? @ -Opiate use disorder, seizure disorder, migraines, fibromyalgia Was patient admitted / discharged? Hospital course, mention meds given and route, prescriptions, significant lab abnormalities, going to OR and other pertinent info. @ -59-year-old female presents to the emergency department for headache. States it feels like her usual migraine headaches. Patient was admitted to the hospital recently for gastroenteritis. Patient at that time had significant leukocytosis with a WBC count peak of 37 on the day of admission. Patient has labile white blood cell counts dating back elevated 2016. Patient has never been told why her white counts get so high. To her knowledge she does not have any history of blood dyscrasia or blood disorder. Patient given headache cocktail with improvement of symptoms. Patient discharged she has an appointment coming up with primary care doctor soon. Return precautions discussed. Patient agreeable with plan. Did you discuss the management of the patient with other professionals (professionals i.e. , PA, CONSTRUCTION COORDINATOR, lab, RT, psych nurse, social work assistant, it data architect, teacher, senior administrative services officer, business case analyst)? Give summary @ -No Was critical care preformed (if so, how long)? @ -No Undiagnosed new problem with uncertain prognosis? @ -No Drug Therapy requiring intensive monitoring for toxicity (Heparin, Nitro, Insulin, Cardizem)? @ -No Were any procedures done? @ -No Diagnosis/symptom? Acute, or Chronic, or Acute on Chronic? Uncomplicated (without systemic symptoms) or Complicated (systemic symptoms)? @ -Migraine headache Side effects of treatment? @ -No Exacerbation, Progression, or Severe Exacerbation? @ -No Poses a threat to life or bodily function? How? (Chest pain, [place], [place], pneumonia, PE, COPD, DKA, ARF, appy, cholecystitis, CVA, Diverticulitis, Homicidal, Suicidal, threat to staff... and all critical care pts) @ -No - Lab Data Result diagrams: 12/28/24 07:27 12/28/24 07:27 Lab Results 12/28/24 12/28/24 Range/Units 07:27 07:27 WBC 27.52 H (4.50-10.00) 10*3/uL RBC 5.13 (4.10-5.20) 10*6/uL Hgb 15.5 H (12.0-15.0) g/dL Hct 43.7 (37.2-46.3) % MCV 85.2 (80.0-97.0) fL MCH 30.2 (27.0-32.0) pg MCHC 35.5 (32.0-37.0) g/dL Plt Count 451 H (140-440) 10*3/uL MPV 11.1 (9.5-12.2) fL Immature Gran % (Auto) 0.7 % Neutrophils % 90.6 % Lymphocytes % 4.8 % Monocytes % 3.7 % Eosinophils % 0.0 % Basophils % 0.2 % Immature Gran # 0.18 H (0.00-0.04) 10*3/uL Neutrophils # 24.94 H (1.80-7.70) 10*3/uL Lymphocytes # 1.32 (0.90-5.00) 10*3/uL Monocytes # 1.02 H (0.20-1.00) 10*3/uL Eosinophils # 0.00 L (0.04-0.35) 10*3/uL Basophils # 0.06 (0.00-0.10) 10*3/uL Sodium 137 (137-145) mmol/L Potassium 3.3 L (3.5-5.1) mmol/L Chloride 97 L (98-107) mmol/L Carbon Dioxide 25 (22-30) mmol/L Anion Gap 15 mmol/L BUN 15 (7-17) mg/dL Creatinine 0.81 (0.52-1.04) mg/dL Est GFR (CKD-EPI)AfAm >90 (>60 ml/min/1.73 sqM) Est GFR (CKD-EPI)NonAf 79 (>60 ml/min/1.73 sqM) Glucose 171 H (74-99) mg/dL Calcium 10.6 H (8.4-10.2) mg/dL Disposition Clinical Impression: Migraine Disposition: HOME SELF-CARE Condition: Fair Instructions (If sedation given, give patient instructions): Migraine Headache (ED) Additional Instructions: Follow-up closely with your primary care doctor for leukocytosis of unclear significance. This is usually a marker of stress. Should you start to feel worse please seek immediate medical attention. Is patient prescribed a controlled substance at d/c from ED?: No Referrals: Les Kelsey MD [Primary Care Provider] - 1-2 days Time of Disposition: 08:18
[2024-12-28] MEDS: SODIUM CHLORIDE 0.9% 1,000 ML IV STA (07:33)
[2024-12-28] MEDS: ONDANSETRON 4 MG/2 ML VIAL IVP STA (07:33)
[2024-12-28] MEDS: HYDROmorphone 1 MG/ML 1 ML SYRINGE IVP STA (07:34)
[2024-12-28 07:46] LABS: Basophils # (A) 0.06 10*3/uL (0.00-0.10); Basophils % (A) 0.2 %; HCT 43.7 % (37.2-46.3); HGB 15.5 g/dL (12.0-15.0); Lymphocytes # (A) 1.32 10*3/uL (0.90-5.00); Lymphocytes % (A) 4.8 %; MCH 30.2 pg (27.0-32.0); MCHC 35.5 g/dL (32.0-37.0); MCV 85.2 fL (80.0-97.0); Mean Platelet Volume 11.1 fL (9.5-12.2); Monocytes # (A) 1.02 10*3/uL (0.20-1.00); Monocytes % (A) 3.7 %; Neutrophils # (A) 24.94 10*3/uL (1.80-7.70); Neutrophils % (A) 90.6 %; Platelet Count 451 10*3/uL (140-440); RBC 5.13 10*6/uL (4.10-5.20); RDW 12.2 % (11.5-14.5); WBC 27.52 10*3/uL (4.50-10.00)
[2024-12-28 07:58] LABS: African American GFR (CKD) >90 (>60 ml/min/1.73 sqM); Anion Gap 15 mmol/L; Blood Urea Nitrogen 15 mg/dL (7-17); Calcium 10.6 mg/dL (8.4-10.2); Carbon Dioxide 25 mmol/L (22-30); Chloride 97 mmol/L (98-107); Glucose 171 mg/dL (74-99); Non-African American GFR(CKD) 79 (>60 ml/min/1.73 sqM); Potassium 3.3 mmol/L (3.5-5.1); Sodium 137 mmol/L (137-145)
[2024-12-28 08:51] VITALS: BP 144/92; PULSE 98; TEMP 99
== END 2024-12-28 08:28 | disposition home or self-care (01) ==
LOC: EC 07:15
DX: G43.909 Migraine, unspecified, not intractable, without status migrainosus (principal); G40.909 Epilepsy, unspecified, not intractable, without status epilepticus; M79.7 Fibromyalgia; F11.10 Opioid abuse, uncomplicated; Z87.891 Personal history of nicotine dependence; Z88.1 Allergy status to other antibiotic agents; Z88.2 Allergy status to sulfonamides
CPT/HCPCS: 36415; 80048; 85025; 99284; 96374; 96375; 96361; J2405; J1171

== ENCOUNTER 2025-01-26 17:38 | Emergency (ER) | payer MEDICARE ==
--- NOTE | 2025-01-26 18:14 | ED ---
Female Urogenital HPI - General Source: patient, RN notes reviewed Mode of arrival: ambulatory Limitations: no limitations <HarriettYariel - Last Filed: 01/26/25 18:13> - General Source: patient, RN notes reviewed, old records reviewed Mode of arrival: ambulatory Limitations: no limitations <Paola Caal - Last Filed: 01/27/25 20:09> - General Chief complaint: Urogenital Stated complaint: Urogenital issues Time Seen by Provider: 01/26/25 17:53 - History of Present Illness Initial comments: Quick note: This is a 59-year-old female presenting for urinary retention x 24 hours. Patient Dors is associated bladder pressure and occasional leakage but is unable to otherwise empty her bladder. Patient denies history of similar symptoms. Denies fever, chills, dysuria, hematuria. (Yariel Lorenzana) 59-year-old female presented to the ER for evaluation of urinary retention. Patient states since midnight yesterday she has been unable to fully urinate. She states she attempts to urinate and will have some dribbling/leakage but is not fully able to create a urinary stream. Patient reports lower abdominal pressure and bloating sensation. She also was endorsing a bilateral flank soreness. She denies history of urinary retention. She denies any recent falls, saddle paresthesias, bowel incontinence, fevers. She denies any diarrhea/constipation, dysuria or hematuria. Patient does admit to a 40 pound weight loss since August. She contributes this to losing her mother and brother and having disagreements with her current family members. Patient states she b elieves she is "bulimic" as she has been having a decreased appetite. She reports she will eat and then have episodes of vomiting as she has a "upset stomach". Patient denies SI or HI. She denies any night sweats, hematemesis, coffee-ground emesis, medic easier or melena. Patient does states she was admitted for colitis in November 2024. Patient denies any abnormal vaginal bleeding or discharge (Paola Caal) - Related Data Home Medications Medication Instructions Recorded Confirmed Montelukast [Singulair] 10 mg PO DAILY 04/08/19 11/28/24 atenoloL [Tenormin] 25 mg PO DAILY@1900 04/08/19 11/28/24 Rizatriptan Benzoate 10 mg PO DAILY PRN 09/07/24 11/28/24 Cyclobenzaprine [Flexeril] 10 mg PO BID PRN 09/22/24 11/28/24 Aspirin EC [Ecotrin Low Dose] 81 mg PO DAILY 11/28/24 11/28/24 Fluticasone Nasal [place] [Flonase 1 spr EA NOSTRIL DAILY 11/28/24 11/28/24 Nasal [place]] LORazepam [Ativan] 1 mg PO TID PRN 11/28/24 11/28/24 Prochlorperazine [Compazine] 10 mg PO Q6H PRN 11/28/24 11/28/24 oxyCODONE HCL [oxyCODONE HCL (IR)] 30 mg PO BID PRN 11/28/24 11/28/24 Previous Rx's Medication Instructions Recorded [place] Carbonate ER [Lithobid] 450 mg PO DAILY #10 tab 09/28/24 QUEtiapine [SEROquel] 600 mg PO HS #10 tab 09/28/24 Aspirin 81 mg PO DAILY tab 12/01/24 cefuroxime axetiL [Ceftin] 500 mg PO BID #20 tab 12/01/24 metroNIDAZOLE [Flagyl] 500 mg PO TID #30 tab 12/01/24 Cephalexin [Keflex] 500 mg PO Q6HR 7 Days #28 cap 01/26/25 Metoclopramide [Reglan] 10 mg PO TID PRN #15 tab 01/26/25 Allergies Allergy/AdvReac Type Severity Reaction Status Date / Time Sulfa (Sulfonamide Allergy Rash/Hives Verified 12/28/24 07:22 Antibiotics) face & neck [place] Allergy Unknown THROAT Uncoded 12/28/24 07:22 SCRATCHY Review of Systems ROS Other: All systems not noted in ROS Statement are negative. <Yariel Lorenzana - Last Filed: 01/26/25 18:13> ROS Other: All systems not noted in ROS Statement are negative. <Paola Caal - Last Filed: 01/27/25 20:09> ROS Statement: Those systems with pertinent positive or pertinent negative responses have been documented in the HPI. Past Medical History Past Medical History: Fibromyalgia, GERD/Reflux, Hypertension, Seizure Disorder Additional Past Medical History / Comment(s): migraines, States 9 seizures in 2018-states they thought it may have been caused by brain lesions and high bloodpressure., Seasonal Allergies, Hx pancreatitis (16 yrs old -states drank heavily), constipation., states having throat pain -some dysphagia., has TMJ., Hx of neck fusion with screws. Left side carotid aneuysm per patient. colitis History of Any Multi-Drug Resistant Organisms: None Reported Past Surgical History: Breast Surgery, Cholecystectomy Additional Past Surgical History / Comment(s): neck fusion and screws , cyst bilateral breast. Past Anesthesia/Blood Transfusion Reactions: No Reported Reaction Past Psychological History: Anxiety, Depression, PTSD Smoking Status: Former smoker Past Alcohol Use History: None Reported Past Drug Use History: Marijuana - Past Family History Mother Family Medical History: COPD, Dementia Father Family Medical History: Cancer Additional Family Medical History / Comment(s): smoker; etoh; from alcoholism <Yariel Lorenzana - Last Filed: 01/26/25 18:13> General Exam Limitations: no limitations <Yariel Lorenzana - Last Filed: 01/26/25 18:13> Limitations: no limitations General appearance: alert, in no apparent distress Respiratory exam: Present: normal lung sounds bilaterally. Absent: respiratory distress, wheezes, rales, rhonchi, stridor Cardiovascular Exam: Present: regular rate, normal rhythm, normal heart sounds. Absent: systolic murmur, diastolic murmur, rubs, gallop, clicks GI/Abdominal exam: Present: soft, tenderness (Generalized), normal bowel sounds Extremities exam: Present: normal inspection, full ROM, normal capillary refill. Absent: tenderness, pedal edema, joint swelling, calf tenderness Back exam: Present: normal inspection, full ROM Neurological exam: Present: alert, oriented X3, CN II-XII intact Skin exam: Present: warm, dry, intact, normal color. Absent: rash <Paola Caal - Last Filed: 01/27/25 20:09> - General Exam Comments Initial Comments: Visual Physical Exam Vital signs reviewed General: Well-appearing, nontoxic, no acute distress. Head: Normocephalic, atraumatic Eyes: PERRLA, EOMI ENT: Airway patent Chest: Nonlabored breathing Skin: No visual rash, normal skin tone Neuro: Alert and oriented 3 Musculoskeletal: No gross abnormalities (Yariel Lorenzana) Course Vital Signs 07/29/25 07/29/25 17:56 22:03 Temperature 98.6 F 98.1 F Pulse Rate 96 78 Respiratory 16 18 Rate Blood Pressure 136/85 131/79 O2 Sat by Pulse 98 99 Oximetry Medical Decision Making <Yariel Lorenzana - Last Filed: 01/26/25 18:13> - Lab Data Result diagrams: 01/26/25 19:32 01/26/25 19:32 <Paola Caal - Last Filed: 01/27/25 20:09> - Medical Decision Making I completed the quick note portion of this chart signed MEENAKSHI Moreno (Yariel Lorenzana) Was pt. sent in by a medical professional or institution ([facility], MATERIAL REQUIREMENTS WORKER, urgent care, hospital, or [facility]...) When possible be specific @ -No Did you speak to anyone other than the patient for history (EMS, parent, family, police, friend...)? What history was obtained from this source @ -No Did you review nursing and triage notes (agree or disagree)? Why? @ -I reviewed and agree with nursing and triage notes Were old charts reviewed (outside hosp., previous admission, EMS record, old EKG, old radiological studies, urgent care reports/EKG's, [facility] records)? Report findings @ -No old charts were reviewed Differential Diagnosis (chest pain, altered mental status, abdominal pain women, abdominal pain men, vaginal bleeding, weakness, fever, dyspnea, syncope, headache, dizziness, GI bleed, back pain, seizure, CVA, palpatations, mental health, musculoskeletal)? @ -Differential Abdominal Pain Women:Appendicitis, Cholecystitis, diverticulosis, ischemic bowel, pancreatitis, hepatitis, UTI, gastroenteritis, AAA, incarcerated hernia, bowel obstruction, constipation, inflammatory bowel, hepatitis, peptic ulcer disease, splenic infarction, perforated viscus, vulvitis, ovarian torsion, PID, kidney stone, placenta abruption, this is not meant to be an all-inclusive list EKG interpreted by me (3pts min.). @ -None done X-rays interpreted by me (1pt min.). @ -None done CT interpreted by me (1pt min.). @ -CT abdomen pelvis negative for acute intra-abdominal/pelvic process. U/S interpreted by me (1pt. min.). @ -None done What testing was considered but not performed or refused? (CT, X-rays, U/S, labs)? Why? @ -None What meds were considered but not given or refused? Why? @ -None Did you discuss the management of the patient with other professionals (professionals i.e. , PA, MATERIAL REQUIREMENTS WORKER, lab, RT, psych nurse, social director, ore mixer, teacher, senior grants officer, onsite case manager)? Give summary @ -No Was smoking cessation discussed for >3mins.? @ -No Was critical care preformed (if so, how long)? @ -No Were there social determinants of health that impacted care today? How? (Homelessness, low income, unemployed, alcoholism, drug addiction, transportation, low edu. Level, literacy, decrease access to med. care, retirement, rehab)? @ -No Was there de-escalation of care discussed even if they declined (Discuss DNR or withdrawal of care, Hospice)? DNR status @ -No What co-morbidities impacted this encounter? (DM, HTN, Smoking, COPD, CAD, Cancer, CVA, ARF, Chemo, Hep., AIDS, mental health diagnosis, sleep apnea, morbid obesity)? @ -None Was patient admitted / discharged? Hospital course, mention meds given and route, prescriptions, significant lab abnormalities, going to OR and other pertinent info. @ -[Discharge. 59-year-old female presented the ER for evaluation of urinary retention. Upon arrival vital signs stable. Workup initiated in triage given bed availability in emergency department. Upon rooming, history and physical exam completed. Patient is well-appearing in no signs of acute distress. There is lower abdominal tenderness on exam without rebound or guarding. Postvoid bladder scan <10 mL, Anne catheter was placed as reliability of bladder scanner is uncertain. As patient reports no urinary output in greater than 24 hours with <10mL on postvoid bladder scan and little to no urinary output after Anne catheter placement, laboratory studies were obtained. Laboratory studies remarkable for WBC 19.6 with a left shift. Patient reports this is chronic sinc e 2016 and she has following up outpatient regarding this. BUN of 11, creatinine 0.83 with a GFR 77. This this appears to be patient's baseline, GFR 79 on 12 28 24. No significant electrolyte abnormality. Urinalysis concerning of infection with many bacteria, 90 WBCs and 12 RBCs. This will be sent for culture. Urine provided with IV Rocephin during emergency department for treatment of UTI. Blood cultures were obtained. CT abdomen pelvis obtained and negative for acute intra-abdominal/pelvic process. Patient provided with IV fluids along with symptomatic treatment in the emergency department. Upon reevaluation, patient reporting improvement of discomfort. She is educated on today's findings and is comfortable and agreeable with discharge at this time. Anne catheter removed. Keflex prescribed for outpatient treatment UTI. Reglan prescribed as patient reports nausea which is believed to be limiting her oral intake possibly contributing to decreased urinary output. Advised her to consume plenty fluids and follow-up closely with PCP. Patient reports follow-up with PCP tomorrow. Strict return parameters discussed. Patient discharged in stable condition. Patient verbally expressed understanding and agreement with care plan. Case discussed with ED attending, Dr. Gomez. Undiagnosed new problem with uncertain prognosis? @ -No Drug Therapy requiring intensive monitoring for toxicity (Heparin, Nitro, Insulin, Cardizem)? @ -No Were any procedures done? @ -No Diagnosis/symptom? @ -UTI/leukocytosis Acute, or Chronic, or Acute on Chronic? @ -Acute/ chronic Uncomplicated (without systemic symptoms) or Complicated (systemic symptoms)? @ -Uncomplicated Side effects of treatment? @ -No Exacerbation, Progression, or Severe Exacerbation? @ -No Poses a threat to life or bodily function? How? (Chest pain, [place], AR, pneumonia, PE, COPD, DKA, ARF, appy, cholecystitis, CVA, Diverticulitis, Homicidal, Suicidal, threat to staff... and all critical care pts) @ -No (Paola Caal) - Lab Data Lab Results 01/26/25 01/26/25 01/26/25 Range/Units 19:24 19:32 19:32 WBC 19.69 H (4.50-10.00) 10*3/uL RBC 5.08 (4.10-5.20) 10*6/uL Hgb 15.3 H (12.0-15.0) g/dL Hct 43.5 (37.2-46.3) % MCV 85.6 (80.0-97.0) fL MCH 30.1 (27.0-32.0) pg MCHC 35.2 (32.0-37.0) g/dL Plt Count 464 H (140-440) 10*3/uL MPV 10.5 (9.5-12.2) fL Immature Gran % (Auto) 0.5 % Neutrophils % (Manual) 71 % Lymphocytes % (Manual) 23 % Monocytes % (Manual) 6 % Immature Gran # 0.09 H (0.00-0.04) 10*3/uL Neutrophils # (Manual) 13.98 H (1.3-7.7) k/uL Lymphocytes # (Manual) 4.53 (1.0-4.8) k/uL Monocytes # (Manual) 1.18 H (0-1.0) k/uL Nucleated RBCs 0 (0-0) /100 WBC Manual Slide Review Performed Large Platelets Present Sodium 137 (137-145) mmol/L Potassium 3.7 (3.5-5.1) mmol/L Chloride 98 (98-107) mmol/L Carbon Dioxide 25 (22-30) mmol/L Anion Gap 14 mmol/L BUN 11 (7-17) mg/dL Creatinine 0.83 (0.52-1.04) mg/dL Est GFR (CKD-EPI)AfAm 89 (>60 ml/min/1.73 sqM) Est GFR (CKD-EPI)NonAf 77 (>60 ml/min/1.73 sqM) Glucose 112 H (74-99) mg/dL Calcium 10.5 H (8.4-10.2) mg/dL Total Bilirubin 0.9 (0.2-1.3) mg/dL AST 23 (14-36) U/L ALT 12 (4-34) U/L Alkaline Phosphatase 84 (38-126) U/L Total Protein 8.0 (6.3-8.2) g/dL Albumin 5.3 H (3.5-5.0) g/dL Urine Color Yellow Urine Appearance Turbid H (Clear) Urine pH 5.5 (5.0-8.0) Ur Specific [place] 1.025 (1.001-1.035) Urine Protein 1+ H (Negative) Urine Glucose (UA) Negative (Negative) Urine Ketones Negative (Negative) Urine Blood Small H (Negative) Urine Nitrite Negative (Negative) Urine Bilirubin Negative (Negative) Urine Urobilinogen 2.0 (<2.0) mg/dL Ur Leukocyte Esterase Large H (Negative) Urine RBC 12 H (0-5) /hpf Urine WBC 90 H (0-5) /hpf Ur Squamous Epith Cells 313 H (0-4) /hpf Urine Bacteria Many H (None) /hpf Urine Mucus Many H (None) /hpf Disposition <Yariel Lorenzana - Last Filed: 01/26/25 18:13> Is patient prescribed a controlled substance at d/c from ED?: No Time of Disposition: 21:55 <Paola Caal - Last Filed: 01/27/25 20:09> Clinical Impression: Urinary tract infection Disposition: HOME SELF-CARE Condition: Stable Instructions (If sedation given, give patient instructions): Urinary Tract Infection in Women (ED) Additional Instructions: Be sure to drink plenty of fluids. Take antibiotics as prescribed. Follow closely with PCP as scheduled tomorrow. Return to the ER for any new or worsening concerns. Prescriptions: Cephalexin [Keflex] 500 mg PO Q6HR 7 Days #28 cap Metoclopramide [Reglan] 10 mg PO TID PRN #15 tab PRN Reason: Nausea Referrals: Les Kelsey MD [Primary Care Provider] - 1-2 days
[2025-01-26 19:34] LABS: Bacteria,Urine Many /hpf; Bilirubin,Urine Negative (Negative); Blood,Urine Small (Negative); Color,Urine Yellow; Glucose,Urine (UA) Negative (Negative); Ketones,Urine Negative (Negative); Leukocyte Esterase,Urine Large (Negative); Mucus,Urine Many /hpf; Nitrite,Urine Negative (Negative); PH, Urine 5.5 (5.0-8.0); Protein,Urine 1+ (Negative); RBC,Urine 12 /hpf (0-5); Specific Gravity,Urine 1.025 (1.001-1.035); Squamous Epithelial Cell,Urine 313 /hpf (0-4); Urobilinogen,Urine 2.0 mg/dL (<2.0); WBC,Urine 90 /hpf (0-5)
[2025-01-26 19:37] LABS: HCT 43.5 % (37.2-46.3); HGB 15.3 g/dL (12.0-15.0); MCH 30.1 pg (27.0-32.0); MCHC 35.2 g/dL (32.0-37.0); MCV 85.6 fL (80.0-97.0); Platelet Count 464 10*3/uL (140-440); RBC 5.08 10*6/uL (4.10-5.20); RDW 12.2 % (11.5-14.5); WBC 19.69 10*3/uL (4.50-10.00)
[2025-01-26 20:06] LABS: Lymphocytes # (M) 4.53 k/uL (1.0-4.8); Monocytes # (M) 1.18 k/uL (0-1.0); Neutrophils # (M) 13.98 k/uL (1.3-7.7); Neutrophils % (M) 71 %; Total Cells Counted 100
[2025-01-26 20:21] LABS: ALT 12 U/L (4-34); AST 23 U/L (14-36); African American GFR (CKD) 89 (>60 ml/min/1.73 sqM); Albumin 5.3 g/dL (3.5-5.0); Alkaline Phosphatase 84 U/L (38-126); Anion Gap 14 mmol/L; Blood Urea Nitrogen 11 mg/dL (7-17); Calcium 10.5 mg/dL (8.4-10.2); Carbon Dioxide 25 mmol/L (22-30); Chloride 98 mmol/L (98-107); Glucose 112 mg/dL (74-99); Non-African American GFR(CKD) 77 (>60 ml/min/1.73 sqM); Potassium 3.7 mmol/L (3.5-5.1); Sodium 137 mmol/L (137-145); Total Protein 8.0 g/dL (6.3-8.2)
[2025-01-26] MEDS: SODIUM CHLORIDE 0.9% 1,000 ML IV ONE (20:26)
[2025-01-26] MEDS: ACETAMINOPHEN TAB 325 MG TAB PO STA (20:29)
--- NOTE | 2025-01-26 21:26 | CT ---
EXAMINATION TYPE: CT abdomen pelvis w con DATE OF EXAM: 01/26/2025 9:06 PM COMPARISON: Prior CT abdomen/pelvis 11/27/2024. CLINICAL INDICATION: Female, 59 years old with history of lower abd pressure; unable to urinae for 24 hours c/o pressure to bladder. c/o leaking TECHNIQUE: Axial CT abdomen pelvis w con;Sagittal and coronal reformats were created on a separate w orkstation. Contrast used:100ml mL of Isovue 300 with IV Contrast, (none if empty) Oral contrast used: without Oral Contrast (none if empty) CT DLP: 853.5 mGycm, Automated exposure control for dose reduction was used. FINDINGS: LOWER CHEST: Unremarkable ABDOMEN LIVER: Unremarkable GALLBLADDER AND BILE DUCTS: The gallbladder is surgically absent. PANCREAS: Unremarkable. SPLEEN: Unremarkable. ADRENAL GLANDS: Unremarkable. KIDNEYS AND URETERS: No evidence of hydronephrosis or renal calculus. The ureters are unremarkable. PELVIS BLADDER: Nondistended with Anne catheter in place. REPRODUCTIVE: Unremarkable. ABDOMEN & PELVIS STOMACH AND BOWEL: Stomach and duodenum are unremarkable. No evidence of bowel obstruction. PERITONEUM/RETROPERITONEUM: No evidence of pneumoperitoneum or free fluid. VASCULATURE: No evidence of aortic aneurysm. MUSCULOSKELETAL: No acute osseous abnormalities LYMPH NODES: No gross evidence for lymphadenopathy. SOFT TISSUE/ABDOMINAL WALL: Unremarkable IMPRESSION: No acute abnormality in the abdomen/pelvis or CT findings to explain reported symptoms. [facility], , 01/26/2025 9:24 PM
[2025-01-26] MEDS: ONDANSETRON 4 MG/2 ML VIAL IVP STA (21:50)
[2025-01-26 22:05] VITALS: BP 131/79; PULSE 78; RESP 18; TEMP 98.1
== END 2025-01-27 01:11 | disposition home or self-care (01) ==
LOC: EC 17:38
DX: N39.0 Urinary tract infection, site not specified (principal); Z87.891 Personal history of nicotine dependence; Z88.2 Allergy status to sulfonamides; Z88.8 Allergy status to other drugs, medicaments and biological substances
CPT/HCPCS: 51798; 36415; 80053; 85025; 81001; 87040; 87086; 74177; 99284; 96365; 96375; J2405; J0696; Q9967